=== PATIENT | male | born 1955 | race Caucasian/White ===

== ENCOUNTER 2021-02-18 10:26 | Emergency (ER) | payer MEDICARE, BC, SELFPAY ==
[2021-02-18] VITALS (7 sets, daily range): BP systolic 196–209; BP diastolic 99–105; PULSE 69–78; RESP 16; TEMP 36.9; O2SAT 97–98
--- NOTE | 2021-02-18 10:50 | ED_ITS ---
HPI - General Adult General Chief complaint: Abdominal Pain Stated complaint: VOMITTING/ NOT KEEPING FLUID DOWN Time Seen by Provider: 02/18/21 10:45 History of Present Illness HPI narrative: Patient is a 65-year-old male. Has a history of chronic constipation. No fevers. No headache. States that approximately 12 hours ago he woke up from sleep and has had multiple episodes of vomiting. No diarrhea. No urinary symptoms. No recent antibiotics. Has had some abdominal discomfort associated with the vomiting. Was seen at the walk-in clinic and was sent to the emergency department for evaluation. Related Data Previous Rx's Medication Instructions Recorded ondansetron HCl 4 mg tablet 4 mg PO Q6H PRN #10 tab 02/18/21 (Zofran) Review of Systems Constitutional Comments: No fevers Cardiovascular Comments: No chest pain Respiratory Comments: No shortness of breath Gastrointestinal Gastrointestinal: Reports as per HPI Genitourinary Genitourinary: Reports system reviewed and no additional complaints, except as documented Musculoskeletal Musculoskeletal: Reports system reviewed and no additional complaints, except as documented Integumentary/Breasts Skin/Breast: Reports system reviewed and no additional complaints, except as documented Neurologic Neurologic: Reports system reviewed and no additional complaints, except as documented Hematologic/Lymphatic On Anticoagulants: No Allergic/Immunologic Allergic/Immunologic: Reports system reviewed and no additional complaints, except as documented Patient History Medical History Chronic constipation Social History marital status: lives independently: Yes Exam Initial Vital Signs Initial Vital Signs: Vital Signs Pulse Oximetry 98 02/18/21 10:33 Const General: cooperative HENMT Head: normal to inspection and normocephalic Eyes General: appearance normal, both eyes and all related structures Resp Effort & Inspection: normal respiratory effort Auscultation: clear to auscultation bilaterally Cardio Rate: regular rate Rhythm: regular rhythm GI Inspection: normal to inspection Palpation: soft, No guarding and No tender Skin General: no rashes or lesions noted Neuro General: patient alert, patient awake and moves all extremities Extrem General: normal to inspection and capillary refill normal Psych Appearance: grossly normal and well kempt Course Orders Ordered: ED Orders 02/18/21 10:41 Complete Blood Count AUTO DIFF Stat Comprehensive Metabolic Panel Stat Lipase Stat Partial Thromboplastin Time Stat Prothrombin Time INR Stat 02/18/21 10:46 EKG-12 Lead Stat Discontinued Medications Sodium Chloride (Normal Saline 0.9%) 1,000 mls @ 1,000 mls/hr IV BOLUS ONE Stop: 02/18/21 11:50 Last Infusion: 02/18/21 12:17 Dose: 0 mls/hr Documented by: Admin: 02/18/21 11:07 Dose: 1,000 mls/hr Documented by: NAVYA Ondansetron HCl (Ondansetron 4 Mg/2 Ml Inj) 4 mg IV NOW ONE Stop: 02/18/21 10:47 Last Admin: 02/18/21 11:08 Dose: 4 mg Documented by: NAVYA Vital Signs Vital signs: Vital Signs - 8 hr 02/18/21 10:33 02/18/21 10:41 02/18/21 10:43 Temperature 98.5 F Pulse Rate 75 78 Respiratory Rate 16 Blood Pressure 196/99 H 209/105 H Pulse Oximetry 98 98 97 02/18/21 11:00 Temperature Pulse Rate 72 Respiratory Rate Blood Pressure Pulse Oximetry 98 Medical Decision Making Lab Data Lab results reviewed: Yes I reviewed the patient's lab results. Result diagrams: 02/18/21 10:41 02/18/21 10:41 Labs: Lab Results 02/18/21 02/18/21 02/18/21 Range/Units 10:41 10:41 10:41 WBC 7.2 (4.5-11.0) X10^3/uL RBC 3.81 L (4.5-5.9) X10^6/uL Hgb 13.7 (13.5-17.5) g/dL Hct 40.2 L (41-53) % MCV 105.5 H (80-100) fL MCH 36.0 H (26-34) PG MCHC 34.1 (30-36) % RDW 14.3 (11.6-14.8) % Plt Count 229 (150-400) X10^3/uL Neut % (Auto) 83.1 H (50-75) % Lymph % (Auto) 10.9 L (25-40) % [place] % (Auto) 5.4 (3-14) % Eos % (Auto) 0.1 L (2-4) % Baso % (Auto) 0.5 (0-2) % Neut # (Auto) 6000 (4987-2266) /uL Lymph # (Auto) 800 L (6449-8603) /uL [place] # (Auto) 400 (0-900) /uL Eos # (Auto) 0 (0-450) /uL Baso # (Auto) 0 (0-100) /uL PT 11.7 (10.1-12.7) SECONDS INR 1.1 (0.9-1.3) APTT 27 (26.4-36.2) SECONDS Sodium 138 (137-145) mmol/L Potassium 4.4 (3.4-5.1) mmol/L Chloride 102 (98-107) mmol/L Carbon Dioxide 25 (22-32) mmol/L BUN 13 (9-20) mg/dL Creatinine 0.87 (0.66-1.25) mg/dL Estimated GFR > 60.0 (>60) mL/min BUN/Creatinine Ratio 14.9 (6-22) Glucose 118 H (80-110) mg/dL Calcium 10.1 (8.4-10.2) mg/dL Total Bilirubin 1.5 H (0.2-1.3) mg/dL AST 163 H (17-59) IU/L ALT 117 H (<50) IU/L Alkaline Phosphatase 85 (38-126) U/L Total Protein 8.2 (6.3-8.2) g/dL Albumin 4.8 (3.5-5.0) g/dL Globulin 3.4 (1.7-4.1) g/dL Albumin/Globulin Ratio 1.4 (1.0-2.8) Lipase 94 (23-300) U/L ECG Data Attestation: I personally reviewed and interpreted this ECG as follows: Interpretation: Sinus rhythm Ventricular rate is 68 Normal axis Normal QRS Normal QTC No ST T wave changes MDM Narrative Medical decision making narrative: Patient is feeling much better. He was able to tolerate oral intake. Has not vomited since being here in the emergency department. Afebrile. Abdomen is soft. Low suspicion for bowel obstruction. Will send a prescription for nausea medicine to the pharmacy of his choice. He was given strict return precautions and follow-up instructions. He expressed understanding and agreement. Discharge Plan Departure Patient Disposition: Home Clinical Impression: Vomiting Instructions: DI for Vomiting -- Adult Activity Restrictions/Additional Instructions: A prescription for nausea medication was electronically transmitted to [facility] per your request. The start taking as directed. Increase your fluid intake but drinking small amounts over longer periods of time. You can contact 360 help you establish a primary doctor. Return to the emergency department for any new or worsening symptoms. Prescriptions: New ondansetron HCl [Zofran] 4 mg tablet 4 mg PO Q6H PRN (Reason: nausea and vomiting) Qty: 10 RF: 0
[2021-02-18 10:56] LABS: Add Manual Diff / Slide Review NO; Basophils Absolute Auto 0 /uL (0-100); Basophils Percent Auto 0.5 % (0-2); Eosinophils Absolute Auto 0 /uL (0-450); Eosinophils Percent Auto 0.1 % (2-4); Hematocrit 40.2 % (41-53); Hemoglobin 13.7 g/dL (13.5-17.5); Lymphocytes Absolute Auto 800 /uL (1100-4500); Lymphocytes Percent Auto 10.9 % (25-40); Mean Corpuscular HGB Conc 34.1 % (30-36); Mean Corpuscular Volume 105.5 fL (80-100); Monocytes Absolute Auto 400 /uL (0-900); Monocytes Percent Auto 5.4 % (3-14); Neutrophils Absolute Auto 6000 /uL (1500-7000); Neutrophils Percent Auto 83.1 % (50-75); Platelet Count 229 X10^3/uL (150-400); Red Blood Cell Count 3.81 X10^6/uL (4.5-5.9); Red Cell Distribution Width 14.3 % (11.6-14.8); White Blood Cell Count 7.2 X10^3/uL (4.5-11.0)
[2021-02-18 10:57] LABS: INR 1.1 (0.9-1.3); Prothrombin Time 11.7 SECONDS (10.1-12.7)
[2021-02-18 10:59] LABS: PTT Partial Thromboplastin Tim 27 SECONDS (26.4-36.2)
[2021-02-18 11:02] LABS: Alanine Aminotransferase 117 IU/L (<50); Albumin 4.8 g/dL (3.5-5.0); Albumin Globulin Ratio 1.4 (1.0-2.8); Alkaline Phosphatase 85 U/L (38-126); Aspartate Aminotransferase 163 IU/L (17-59); BUN Creatinine Ratio 14.9 (6-22); Bilirubin Total 1.5 mg/dL (0.2-1.3); Blood Urea Nitrogen 13 mg/dL (9-20); Calcium 10.1 mg/dL (8.4-10.2); Carbon Dioxide 25 mmol/L (22-32); Chloride 102 mmol/L (98-107); Estimated Glomerular Filt Rate > 60.0 mL/min (>60); Globulin 3.4 g/dL (1.7-4.1); Glucose 118 mg/dL (80-110); HEMOLYSIS < 15 (0-50); Lipase 94 U/L (23-300); Potassium 4.4 mmol/L (3.4-5.1); Sodium 138 mmol/L (137-145); Total Protein 8.2 g/dL (6.3-8.2)
[2021-02-18] MEDS: SODIUM CHLORIDE 0.9% 1,000 ML 1000 ML IV (11:07)
[2021-02-18] MEDS: ONDANSETRON 4 MG/2 ML INJ IV (11:08)
== END 2021-02-18 12:45 | disposition home or self-care (01) ==
PROVIDERS: Emergency Provider Emergency Medicine
DX: R11.10 Vomiting, unspecified (principal); R10.9 Unspecified abdominal pain
CPT/HCPCS: 36415; 80053; 83690; 85025; 85610; 85730; 93005; 96361; 96374; 99284; J2405

== ENCOUNTER 2021-04-19 13:19 | Emergency (ER) | payer MEDICARE, BC, SELFPAY ==
[2021-04-19 13:29] VITALS: BP 219/103; PULSE 72; RESP 18; TEMP 36.7; O2SAT 99; BMI 24.3
[2021-04-19] MEDS: ONDANSETRON 4 MG/2 ML INJ IV (13:47)
[2021-04-19 13:58] LABS: Add Manual Diff / Slide Review NO; Basophils Absolute Auto 0 /uL (0-100); Basophils Percent Auto 0.8 % (0-2); Eosinophils Absolute Auto 0 /uL (0-450); Eosinophils Percent Auto 0.7 % (2-4); Hematocrit 40.7 % (41-53); Hemoglobin 13.9 g/dL (13.5-17.5); Lymphocytes Absolute Auto 1300 /uL (1100-4500); Lymphocytes Percent Auto 22.4 % (25-40); Mean Corpuscular HGB Conc 34.2 % (30-36); Mean Corpuscular Hemoglobin 36.6 PG (26-34); Mean Corpuscular Volume 107.2 fL (80-100); Monocytes Absolute Auto 300 /uL (0-900); Neutrophils Absolute Auto 4000 /uL (1500-7000); Neutrophils Percent Auto 70.1 % (50-75); Platelet Count 224 X10^3/uL (150-400); Red Cell Distribution Width 14.3 % (11.6-14.8); White Blood Cell Count 5.7 X10^3/uL (4.5-11.0)
[2021-04-19 14:04] LABS: Prothrombin Time 11.6 SECONDS (10.1-12.7)
[2021-04-19 14:06] LABS: PTT Partial Thromboplastin Tim 29 SECONDS (26.4-36.2)
[2021-04-19 14:12] LABS: Alanine Aminotransferase 83 IU/L (<50); Albumin 4.9 g/dL (3.5-5.0); Albumin Globulin Ratio 1.6 (1.0-2.8); Alkaline Phosphatase 75 U/L (38-126); Aspartate Aminotransferase 127 IU/L (17-59); BUN Creatinine Ratio 15.3 (6-22); Blood Urea Nitrogen 11 mg/dL (9-20); Calcium 9.3 mg/dL (8.4-10.2); Carbon Dioxide 26 mmol/L (22-32); Chloride 102 mmol/L (98-107); Creatine Kinase 298 U/L (55-170); Estimated Glomerular Filt Rate > 60.0 mL/min (>60); Glucose 105 mg/dL (80-110); HEMOLYSIS 32 (0-50); Lipase 83 U/L (23-300); Potassium 3.8 mmol/L (3.4-5.1); Sodium 137 mmol/L (137-145); Total Protein 7.9 g/dL (6.3-8.2)
[2021-04-19 14:21] LABS: COVID19 -Nasal RAPID Negative (Negative)
[2021-04-19 14:23] LABS: Troponin I < 0.012 ng/mL (0.01-0.034)
[2021-04-19 14:27] LABS: CKMB % Relative Index 0.8 % (1.5-5.0); Creatine Kinase MB 2.28 ng/mL (<2.37)
--- NOTE | 2021-04-19 14:54 | DI.CT.S_ITS ---
PROCEDURE: CT ABDOMEN PELVIS W CON INDICATIONS: ?SBO TECHNIQUE: After the administration of oral and IV contrast, axial sections were acquired from the lung bases to the pubic symphysis. Coronal and sagittal reformats were performed. For radiation dose reduction, the following was used: automated exposure control, adjustment of mA and/or kV according to patient size. COMPARISON: None. FINDINGS: Image quality: There is streak artifact from patient's left hip prosthesis. Lung bases: There is minimal dependent atelectasis. Heart: Mildly enlarged. ABDOMEN: Liver: There is diffuse hypoattenuation of the liver consistent with fatty infiltration. Gallbladder: Unremarkable. Biliary ducts: Unremarkable. Pancreas: Unremarkable. Spleen: Unremarkable. Adrenal Glands: Unremarkable. Kidneys and Ureters: No hydronephrosis. Stomach and Bowel: Stomach and small bowel are normal in caliber and wall thickness. The appendix is normal in appearance. There is segmental bowel wall thickening involving the distal ascending and proximal transverse colon centered at the hepatic flexure. Evaluation is limited by nondistention. A few colonic diverticular present without acute diverticulitis. Peritoneum: No abnormal intraperitoneal fluid. No free air. Ventral Wall: No hernia. Abdominal Nodes: No retroperitoneal or mesenteric adenopathy by size criteria. Vessels: Aorta and inferior vena cava are normal in size. PELVIS: Pelvic Organs: Unremarkable. Bladder: Unremarkable. Pelvic Nodes: No enlarged lymph nodes. Miscellaneous: No inguinal hernias are seen. Bones: There is a left total hip prosthesis demonstrated. No associated periprosthetic fractures identified. IMPRESSION: 1. No evidence of small-bowel obstruction as clinically queried. 2. No evidence of appendicitis. 3. Mild segmental wall thickening of the colon centered at the hepatic flexure suggestive of a mild colitis. However, this may be artifactual due to nondistention. Recommend correlation clinically. 4. Hepatic steatosis. Dictated by: Oli Hester M.D. on 04/19/2021 at 16:39 Approved by: Oli Hester M.D. on 04/19/2021 at 16:43
[2021-04-19] MEDS: SODIUM CHLORIDE 0.9% 1,000 ML 1000 ML IV (15:18)
--- NOTE | 2021-04-19 16:07 | ED.NAVMDI ---
HPI - Nausea/Vomiting/Diarrhea <Ashlyn Simpson PA-C - Last Filed: 04/19/21 17:24> General Chief complaint: Nausea/Vomiting/Diarrhea Stated complaint: nausea/vomitting Time Seen by Provider: 04/19/21 14:02 Source: patient Mode of arrival: Ambulatory Limitations: no limitations History of Present Illness HPI Narrative: 65-year-old male with past medical history hypertension, hyperlipidemia, CAD, GERD, constipation presents to the ED with 1 day of nausea and vomiting. Patient states that he has not had a good bowel movement for the last 3 days, started feeling nauseous earlier today and had 2 episodes of vomiting. Denies hematochezia, melena, coffee-ground emesis. Denies fever, chills, chest pain, shortness of breath, cough, abdominal pain, diarrhea, dysuria, lightheadedness, dizziness, syncope. Takes omeprazole for GERD, MiraLax and Dulcolax for constipation. Is on clopidogrel, aspirin, amlodipine. Endorses consuming 2 alcoholic drinks daily. Denies smoking, drug use. Related Data Previous Rx's Medication Instructions Recorded ondansetron HCl 4 mg tablet 4 mg PO Q6H PRN #10 tab 02/18/21 (Zofran) Allergies Allergy/AdvReac Type Severity Reaction Status Date / Time No Known Drug Allergies Allergy Verified 04/19/21 13:29 Review of Systems <Ashlyn Simpson PA-C - Last Filed: 04/19/21 17:24> Constitutional Constitutional: Denies chills, Denies fatigue, Denies fever(s), Denies frequent falls, Denies lethargy and Denies weakness Eyes Eyes: Denies change in vision, Denies eye discharge, Denies irritation and Denies loss of vision ENT Ears, Nose, Mouth, and Throat: Denies change in voice, Denies dizziness, Denies neck pain, Denies sore throat and Denies throat swelling Cardiovascular Cardiovascular: Denies chest pain, Denies irregular heart rhythm, Denies lightheadedness, Denies palpitations, Denies dyspnea, Denies dyspnea on exertion and Denies orthopnea Respiratory Respiratory: Denies cough, Denies dyspnea, Denies dyspnea on exertion and Denies wheezing Gastrointestinal Gastrointestinal: Denies abdominal pain, Denies change in bowel habits, Reports constipation, Denies diarrhea, Reports nausea and Reports vomiting Musculoskeletal Musculoskeletal: Denies neck pain and Denies numbness Integumentary/Breasts Skin/Breast: Denies pruritus, Denies erythema, Denies rash and Denies wounds Neurologic Neurologic: Denies behavioral changes, Denies confusion, Denies dizziness, Denies frequent falls, Denies loss of vision, Denies numbness and Denies weakness Psychiatric Psychiatric: Denies anxiety, Denies behavioral changes, Denies confusion, Denies depression, Denies homicidal ideation and Denies suicidal ideation Endocrine Endocrine: Denies fatigue, Denies flushing and Denies palpitations Hematologic/Lymphatic Hematologic/Lymphatic: Denies easy bruising Allergic/Immunologic Allergic/Immunologic: Denies urticaria, Denies throat swelling and Denies wheezing Patient History <Ashlyn Simpson PA-C - Last Filed: 04/19/21 17:24> Medical History Chronic constipation Social History marital status: lives independently: Yes Smoking Status: Never smoker Smoking Status: Never smoker alcohol intake frequency: 0-2 drinks per day Substance Use Type: does not use Exam <Ashlyn Simpson PA-C - Last Filed: 04/19/21 17:24> Initial Vital Signs Initial Vital Signs: Vital Signs Temperature 98.0 F 04/19/21 13:29 Pulse Rate 72 04/19/21 13:29 Respiratory Rate 18 04/19/21 13:29 Blood Pressure 219/103 H 04/19/21 13:29 Pulse Oximetry 99 04/19/21 13:29 Const General: cooperative HENMT Head: normocephalic and atraumatic Ears: external ears normal and TM's normal bilaterally Nose: external nose normal and No nasal discharge Face and sinus: sinuses nontender, face symmetric, no sinus tenderness and No dry mucous membranes Mouth: oral mucosae normal and moist mucous membranes Teeth and gingiva: dentition normal Throat: tonsils normal and uvula midline Eyes General: appearance normal, both eyes and all related structures Eyelids: eyelids normal Conjunctivae: conjunctivae normal Sclera: sclerae normal Pupils: PERRL EOM: EOM intact bilaterally Neck Neck: normal visual inspection, trachea midline, No lymphadenopathy, No midline deformity and No JVD Lymphatic: No lymphedema Chest Chest: normal inspection of the chest Resp Effort & Inspection: normal respiratory effort, able to speak in complete sentences, no respiratory distress and no use of accessory muscles Auscultation: clear to auscultation bilaterally, no rales, no rhonchi and no wheezes Cardio Rate: regular rate Rhythm: regular rhythm Heart Sounds: no click, no gallops, no murmurs and no rubs Pulses: normal peripheral pulses GI Inspection: non-distended Palpation: soft, no hepatosplenomegaly, No guarding, No pulsatile mass and No tender Auscultation: normal bowel sounds Other: Abdomen is soft, nondistended, nontender to palpation. No CVA tenderness. Back/Spine/Pelvis Back: No CVA tenderness Cervical Spine: cervical ROM normal and No pain with cervical ROM Thoracic/Lumbar Spine: thoracic and lumbar spine normal to inspection Skin General: no rashes or lesions noted, No jaundice and No petechiae Neuro General: patient alert, patient oriented x3, gait normal and no focal motor deficits Speech: speech normal Extrem General: full ROM, no clubbing, cyanosis or edema, no pedal edema and no calf tenderness Psych Appearance: well kempt Mental Status: mental status grossly normal Attitude: cooperative Thought Content: normal and suicidality Judgment: judgment good <Alec Alicea DO - Last Filed: 04/19/21 17:31> Initial Vital Signs Initial Vital Signs: Vital Signs Temperature 98.0 F 04/19/21 13:29 Pulse Rate 72 04/19/21 13:29 Respiratory Rate 18 04/19/21 13:29 Blood Pressure 219/103 H 04/19/21 13:29 Pulse Oximetry 99 04/19/21 13:29 Course <Ashlyn Simpson PA-C - Last Filed: 04/19/21 17:24> Course Course Narrative: Labs within normal limits. CT abdomen pelvis negative for acute findings. Will discharge home with ED return precautions, PCP follow-up. Orders Ordered: ED Orders 04/19/21 13:40 Complete Blood Count AUTO DIFF Stat Comprehensive Metabolic Panel Stat Lipase Stat Partial Thromboplastin Time Stat Prothrombin Time INR Stat Troponin & CK Cardiac Panel Stat 04/19/21 13:56 COVID19 -Nasal swab/Pre-Proc Stat 04/19/21 13:59 EKG-12 Lead Stat 04/19/21 14:54 CT abdomen pelvis w con Stat 04/19/21 16:25 Urine Microscopic Stat Discontinued Medications Sodium Chloride (Normal Saline 0.9%) 1,000 mls @ 1,000 mls/hr IV BOLUS ONE Stop: 04/19/21 15:56 Last Infusion: 04/19/21 17:12 Dose: 0 mls/hr Documented by: Admin: 04/19/21 15:18 Dose: 1,000 mls/hr Documented by: NAVYA Ondansetron HCl (Ondansetron 4 Mg/2 Ml Inj) 4 mg IV NOW ONE Stop: 04/19/21 13:37 Last Admin: 04/19/21 13:47 Dose: 4 mg Documented by: CHAVA Vital Signs Vital signs: Vital Signs - 8 hr 04/19/21 13:29 04/19/21 16:16 Temperature 98.0 F Pulse Rate 72 74 Respiratory Rate 18 Blood Pressure 219/103 H 192/97 H Pulse Oximetry 99 99 <Alec Alicea, DO - Last Filed: 04/19/21 17:31> Orders Ordered: ED Orders 04/19/21 13:40 Complete Blood Count AUTO DIFF Stat Comprehensive Metabolic Panel Stat Lipase Stat Partial Thromboplastin Time Stat Prothrombin Time INR Stat Troponin & CK Cardiac Panel Stat 04/19/21 13:56 COVID19 -Nasal swab/Pre-Proc Stat 04/19/21 13:59 EKG-12 Lead Stat 04/19/21 14:54 CT abdomen pelvis w con Stat 04/19/21 16:25 Urine Microscopic Stat Discontinued Medications Sodium Chloride (Normal Saline 0.9%) 1,000 mls @ 1,000 mls/hr IV BOLUS ONE Stop: 04/19/21 15:56 Last Infusion: 04/19/21 17:12 Dose: 0 mls/hr Documented by: Admin: 04/19/21 15:18 Dose: 1,000 mls/hr Documented by: NAVYA Ondansetron HCl (Ondansetron 4 Mg/2 Ml Inj) 4 mg IV NOW ONE Stop: 04/19/21 13:37 Last Admin: 04/19/21 13:47 Dose: 4 mg Documented by: CHAVA Vital Signs Vital signs: Vital Signs - 8 hr 04/19/21 13:29 04/19/21 16:16 Temperature 98.0 F Pulse Rate 72 74 Respiratory Rate 18 Blood Pressure 219/103 H 192/97 H Pulse Oximetry 99 99 MDM - Nausea/Vomiting/Diarrhea <Ashlyn Simpson PA-C - Last Filed: 04/19/21 17:24> Medical Records Attestation: I reviewed the patient's medical records. Lab Data Attestation: I reviewed the patient's lab results. Lab results narrative: Labs within normal Result diagrams: 04/19/21 13:40 04/19/21 13:40 Labs: Lab Results 04/19/21 04/19/21 04/19/21 Range/Units 13:40 13:40 13:40 WBC 5.7 (4.5-11.0) X10^3/uL RBC 3.80 L (4.5-5.9) X10^6/uL Hgb 13.9 (13.5-17.5) g/dL Hct 40.7 L (41-53) % MCV 107.2 H (80-100) fL MCH 36.6 H (26-34) PG MCHC 34.2 (30-36) % RDW 14.3 (11.6-14.8) % Plt Count 224 (150-400) X10^3/uL Neut % (Auto) 70.1 (50-75) % Lymph % (Auto) 22.4 L (25-40) % Dickenson % (Auto) 6.0 (3-14) % Eos % (Auto) 0.7 L (2-4) % Baso % (Auto) 0.8 (0-2) % Neut # (Auto) 4000 (8147-0330) /uL Lymph # (Auto) 1300 (1073-6558) /uL Dickenson # (Auto) 300 (0-900) /uL Eos # (Auto) 0 (0-450) /uL Baso # (Auto) 0 (0-100) /uL PT 11.6 (10.1-12.7) SECONDS INR 1.0 (0.9-1.3) APTT 29 (26.4-36.2) SECONDS Sodium 137 (137-145) mmol/L Potassium 3.8 (3.4-5.1) mmol/L Chloride 102 (98-107) mmol/L Carbon Dioxide 26 (22-32) mmol/L BUN 11 (9-20) mg/dL Creatinine 0.72 (0.66-1.25) mg/dL Estimated GFR > 60.0 (>60) mL/min BUN/Creatinine Ratio 15.3 (6-22) Glucose 105 (80-110) mg/dL Calcium 9.3 (8.4-10.2) mg/dL Total Bilirubin 1.0 (0.2-1.3) mg/dL AST 127 H (17-59) IU/L ALT 83 H (<50) IU/L Alkaline Phosphatase 75 (38-126) U/L Total Creatine Kinase (55-170) U/L CK-MB (CK-2) (<2.37) ng/mL CK-MB (CK-2) Rel Index (1.5-5.0) % Troponin I (0.01-0.034) ng/mL Total Protein 7.9 (6.3-8.2) g/dL Albumin 4.9 (3.5-5.0) g/dL Globulin 3.0 (1.7-4.1) g/dL Albumin/Globulin Ratio 1.6 (1.0-2.8) Lipase 83 (23-300) U/L Urine RBC (0-5/HPF) Urine WBC (0-5/HPF) Urine Bacteria (None) Ur Culture Indicated? SARS-CoV-2 (PCR) (Negative) 04/19/21 04/19/21 04/19/21 Range/Units 13:40 13:56 16:25 WBC (4.5-11.0) X10^3/uL RBC (4.5-5.9) X10^6/uL Hgb (13.5-17.5) g/dL Hct (41-53) % MCV (80-100) fL MCH (26-34) PG MCHC (30-36) % RDW (11.6-14.8) % Plt Count (150-400) X10^3/uL Neut % (Auto) (50-75) % Lymph % (Auto) (25-40) % Dickenson % (Auto) (3-14) % Eos % (Auto) (2-4) % Baso % (Auto) (0-2) % Neut # (Auto) (6182-7540) /uL Lymph # (Auto) (0175-1263) /uL Dickenson # (Auto) (0-900) /uL Eos # (Auto) (0-450) /uL Baso # (Auto) (0-100) /uL PT (10.1-12.7) SECONDS INR (0.9-1.3) APTT (26.4-36.2) SECONDS Sodium (137-145) mmol/L Potassium (3.4-5.1) mmol/L Chloride (98-107) mmol/L Carbon Dioxide (22-32) mmol/L BUN (9-20) mg/dL Creatinine (0.66-1.25) mg/dL Estimated GFR (>60) mL/min BUN/Creatinine Ratio (6-22) Glucose (80-110) mg/dL Calcium (8.4-10.2) mg/dL Total Bilirubin (0.2-1.3) mg/dL AST (17-59) IU/L ALT (<50) IU/L Alkaline Phosphatase (38-126) U/L Total Creatine Kinase 298 H (55-170) U/L CK-MB (CK-2) 2.28 (<2.37) ng/mL CK-MB (CK-2) Rel Index 0.8 L (1.5-5.0) % Troponin I < 0.012 (0.01-0.034) ng/mL Total Protein (6.3-8.2) g/dL Albumin (3.5-5.0) g/dL Globulin (1.7-4.1) g/dL Albumin/Globulin Ratio (1.0-2.8) Lipase (23-300) U/L Urine RBC None seen (0-5/HPF) Urine WBC None seen (0-5/HPF) Urine Bacteria None seen (None) Ur Culture Indicated? Cult not indicated SARS-CoV-2 (PCR) Negative (Negative) Urine Dip Bedside Urine Glucose Negative Bedside Urine Bilirubin - Negative Bedside Urine Ketone - Negative Urine Specific [place] 1.010 Bedside Urine Occult Blood - Negative Bedside Urine pH 7.0 Bedside Urine Protein +/- 15 Bedside Urine Urobilinogen - Negative Bedside Urine Nitrite - Negative Bedside Urine Leukocytes - Negative Esterase Imaging Data CT scan - abdomen/pelvis: Radiologist's Impression: PROCEDURE:? CT ANGIO CHEST ABDOMEN PELVIS ? INDICATIONS:? L upper back pain, chest pain ? TECHNIQUE:? Precontrast 5 mm thick sections acquired from the lung apices to the iliac crests.? After the administration of intravenous contrast, 2.5 mm thick sections again acquired from the lung apices to the iliac crests.? Maximum intensity projection (MIP) oblique sagittal and coronal reformats were then acquired.? For radiation dose reduction, the following was used:? automated exposure control.? ? COMPARISON:? [facility], CR, XR CHEST 2V, 04/19/2021, 11:55. ? FINDINGS:? Image quality:? There is metallic streak artifact from patient's left hip prosthesis and left gluteal implanted neurostimulator device. ? AORTA:? Noncontrast images demonstrate no evidence of and intramural hematoma.? Postcontrast images demonstrate no intimal flaps to suggest aortic dissection.? The aorta is normal in caliber and contour.? There is conventional branching of the aortic arch.? The visualized great vessels are normal in caliber and appear widely patent.? There is mild scattered atherosclerotic plaque along the aorta. ? CHEST:? Lungs and pleura:? There is mild dependent atelectasis bilaterally.? No acute consolidation.? No pleural effusions or pneumothorax.? Central and peripheral airways are patent and normal in caliber.? ? Mediastinum:? Heart size is normal.? No pericardial effusion.? No mediastinal or hilar adenopathy by size criteria.? Central pulmonary arteries are mildly enlarged, with the main pulmonary artery measuring up to 3.1 cm suggestive of pulmonary arterial hypertension.? No filling defects are identified to suggest central pulmonary embolism to the level of the segmental pulmonary arteries.? Esophagus is normal in caliber.? There is a small to moderate-sized hiatal hernia.? ? Bones and chest wall:? No axillary adenopathy by size criteria.? No suspicious bony lesions.? No vertebral body compression fractures.? ? ? ABDOMEN:? Vasculature:? The celiac, superior mesenteric, and inferior mesenteric arteries appear patent.? There is a small accessory right renal artery supplying the inferior pole of the right kidney.? There is a single left renal artery.? Prominent calcified plaque is demonstrated in the proximal left renal artery at its origin with associated moderate focal narrowing.? The common, external, and internal iliac arteries appear widely patent bilaterally.? The common femoral and visualized superficial femoral arteries also appear patent bilaterally. ? Solid organs:? There is hypoattenuation of the liver suggestive of fatty infiltration.? The gallbladder is surgically absent.? Biliary system is non-dilated.? Pancreas enhances normally.? No peripancreatic fat stranding or fluid collections.? No pancreatic duct dilatation.? The spleen is normal in size.? No adrenal nodules.? Kidneys demonstrate no hydronephrosis. ? Peritoneum and bowel:? No free fluid or air.? There are postsurgical changes consistent with prior gastric bypass.? Bowel loops are normal in caliber and wall thickness.? Surgical clips are demonstrated adjacent to the cecum compatible with prior appendectomy. ?There are few colonic diverticula without acute diverticulitis.? ? Nodes and vessels:? No retroperitoneal or mesenteric adenopathy by size criteria.? Inferior vena cava is normal in morphology.? ? Miscellaneous:? No ventral hernias.? ? ? PELVIS:? Genitourinary:? Bladder wall thickness is normal.? ? Miscellaneous:? There is a left gluteal implanted neurostimulator device with in the epidural lead extending superiorly in the lumbar spinal canal up to the level of T11.? No inguinal hernias or adenopathy.? No ventral hernias.? ? Bones:? No suspicious bony lesions.? No vertebral body compression fractures.? ? ? IMPRESSION:? ? 1. No evidence of aortic dissection. ? 2. No central pulmonary embolism to the level of the segmental pulmonary arteries. ? 3. No acute consolidation in the lungs. ? 4. Moderate narrowing at the origin of the left renal artery.? ? ? Dictated by: Oli Hester M.D. on 04/19/2021 at 15:48 ? ? Approved by: Oli Hester M.D. on 04/19/2021 at 16:10 ? ECG Data Interpretation: Normal sinus rhythm, no ST-T changes, no axis deviation. MDM Narrative Medical decision making narrative: 65-year-old male with past medical history hypertension, hyperlipidemia, CAD, GERD, constipation presents to the ED with 1 day of nausea and vomiting. Concern for SBO versus GERD versus gastritis. Patient is not tender to palpation in the abdomen, unlikely biliary etiology, diverticulitis, appendicitis. Will order labs, lipase, CT abdomen pelvis, EKG. Will give IV fluids and Zofran for symptoms. Will reassess. <Alec Alicea DO - Last Filed: 04/19/21 17:31> Lab Data Labs: Lab Results 04/19/21 04/19/21 04/19/21 Range/Units 13:40 13:40 13:40 WBC 5.7 (4.5-11.0) X10^3/uL RBC 3.80 L (4.5-5.9) X10^6/uL Hgb 13.9 (13.5-17.5) g/dL Hct 40.7 L (41-53) % MCV 107.2 H (80-100) fL MCH 36.6 H (26-34) PG MCHC 34.2 (30-36) % RDW 14.3 (11.6-14.8) % Plt Count 224 (150-400) X10^3/uL Neut % (Auto) 70.1 (50-75) % Lymph % (Auto) 22.4 L (25-40) % Dickenson % (Auto) 6.0 (3-14) % Eos % (Auto) 0.7 L (2-4) % Baso % (Auto) 0.8 (0-2) % Neut # (Auto) 4000 (0149-9458) /uL Lymph # (Auto) 1300 (6704-4717) /uL Dickenson # (Auto) 300 (0-900) /uL Eos # (Auto) 0 (0-450) /uL Baso # (Auto) 0 (0-100) /uL PT 11.6 (10.1-12.7) SECONDS INR 1.0 (0.9-1.3) APTT 29 (26.4-36.2) SECONDS Sodium 137 (137-145) mmol/L Potassium 3.8 (3.4-5.1) mmol/L Chloride 102 (98-107) mmol/L Carbon Dioxide 26 (22-32) mmol/L BUN 11 (9-20) mg/dL Creatinine 0.72 (0.66-1.25) mg/dL Estimated GFR > 60.0 (>60) mL/min BUN/Creatinine Ratio 15.3 (6-22) Glucose 105 (80-110) mg/dL Calcium 9.3 (8.4-10.2) mg/dL Total Bilirubin 1.0 (0.2-1.3) mg/dL AST 127 H (17-59) IU/L ALT 83 H (<50) IU/L Alkaline Phosphatase 75 (38-126) U/L Total Creatine Kinase (55-170) U/L CK-MB (CK-2) (<2.37) ng/mL CK-MB (CK-2) Rel Index (1.5-5.0) % Troponin I (0.01-0.034) ng/mL Total Protein 7.9 (6.3-8.2) g/dL Albumin 4.9 (3.5-5.0) g/dL Globulin 3.0 (1.7-4.1) g/dL Albumin/Globulin Ratio 1.6 (1.0-2.8) Lipase 83 (23-300) U/L Urine RBC (0-5/HPF) Urine WBC (0-5/HPF) Urine Bacteria (None) Ur Culture Indicated? SARS-CoV-2 (PCR) (Negative) 04/19/21 04/19/21 04/19/21 Range/Units 13:40 13:56 16:25 WBC (4.5-11.0) X10^3/uL RBC (4.5-5.9) X10^6/uL Hgb (13.5-17.5) g/dL Hct (41-53) % MCV (80-100) fL MCH (26-34) PG MCHC (30-36) % RDW (11.6-14.8) % Plt Count (150-400) X10^3/uL Neut % (Auto) (50-75) % Lymph % (Auto) (25-40) % Dickenson % (Auto) (3-14) % Eos % (Auto) (2-4) % Baso % (Auto) (0-2) % Neut # (Auto) (3132-0715) /uL Lymph # (Auto) (6336-6997) /uL Dickenson # (Auto) (0-900) /uL Eos # (Auto) (0-450) /uL Baso # (Auto) (0-100) /uL PT (10.1-12.7) SECONDS INR (0.9-1.3) APTT (26.4-36.2) SECONDS Sodium (137-145) mmol/L Potassium (3.4-5.1) mmol/L Chloride (98-107) mmol/L Carbon Dioxide (22-32) mmol/L BUN (9-20) mg/dL Creatinine (0.66-1.25) mg/dL Estimated GFR (>60) mL/min BUN/Creatinine Ratio (6-22) Glucose (80-110) mg/dL Calcium (8.4-10.2) mg/dL Total Bilirubin (0.2-1.3) mg/dL AST (17-59) IU/L ALT (<50) IU/L Alkaline Phosphatase (38-126) U/L Total Creatine Kinase 298 H (55-170) U/L CK-MB (CK-2) 2.28 (<2.37) ng/mL CK-MB (CK-2) Rel Index 0.8 L (1.5-5.0) % Troponin I < 0.012 (0.01-0.034) ng/mL Total Protein (6.3-8.2) g/dL Albumin (3.5-5.0) g/dL Globulin (1.7-4.1) g/dL Albumin/Globulin Ratio (1.0-2.8) Lipase (23-300) U/L Urine RBC None seen (0-5/HPF) Urine WBC None seen (0-5/HPF) Urine Bacteria None seen (None) Ur Culture Indicated? Cult not indicated SARS-CoV-2 (PCR) Negative (Negative) Urine Dip Bedside Urine Glucose Negative Bedside Urine Bilirubin - Negative Bedside Urine Ketone - Negative Urine Specific [place] 1.010 Bedside Urine Occult Blood - Negative Bedside Urine pH 7.0 Bedside Urine Protein +/- 15 Bedside Urine Urobilinogen - Negative Bedside Urine Nitrite - Negative Bedside Urine Leukocytes - Negative Esterase Discharge Plan Departure Patient Disposition: Home Clinical Impression: Nausea & vomiting Qualifiers: Vomiting type: unspecified Vomiting Intractability: non-intractable Qualified Code(s): R11.2 - Nausea with vomiting, unspecified Instructions: Nausea and Vomiting-Adult Activity Restrictions/Additional Instructions: You are evaluated for nausea and vomiting in the ED today. Your labs, CT abdomen and pelvis were normal. You were treated with Zofran and IV fluids for your symptoms. Continue to take the MiraLax, Dulcolax, omeprazole. Follow-up with your PCP. Return to the ED if your symptoms worsen, you are intractably vomiting, you are unable to keep down fluids or solids. Prescriptions: No Action ondansetron HCl [Zofran] 4 mg tablet 4 mg PO Q6H PRN (Reason: nausea and vomiting) Qty: 10 RF: 0 <Alec Alicea, DO - Last Filed: 04/19/21 17:31> Cosign ED Attending Cosignature Attestation: Dr Alicea Co-Sign Statement: I was available for consultation during this patient's emergency department visit. This chart is signed by myself for administrative purposes only. I did not have direct contact with this patient during this visit. They were seen independently by the APC.
[2021-04-19 16:16] VITALS: BP 192/97; PULSE 74; O2SAT 99
[2021-04-19 17:02] LABS: Bacteria Urine None Seen; Culture Indicated Urine Cult Not Indicated; RBC Urine None Seen (0-5/HPF); WBC Urine None Seen (0-5/HPF)
== END 2021-04-19 17:29 | disposition home or self-care (01) ==
PROVIDERS: Emergency Medicine; Emergency Provider Student in an Organized Health Care Education/Training Program
DX: R11.2 Nausea with vomiting, unspecified (principal); M54.6 Pain in thoracic spine; R07.9 Chest pain, unspecified; Z20.822 Contact with and (suspected) exposure to COVID-19
CPT/HCPCS: 74177; 80053; 81003; 81015; 82550; 82553; 83690; 84484; 85025; 85610; 85730; 87635; 93005; 93010; 96361; 96374; 99284; C9803; J2405; Q9967

== ENCOUNTER → 2022-07-01 12:16 | Outpatient (CLI) | payer MEDICARE, BC, SELFPAY ==
[2022-07-01 14:14] LABS: Influenza A - CEPHEID Flu A POSITIVE (NEGATIVE); Influenza B - CEPHEID Flu B NEGATIVE (NEGATIVE); Respiratory Syncytial Virus Negative (Negative)
[2022-07-01 14:15] LABS: COVID-19 CEPHEID 4-PLEX PCR Negative (Negative)
== END ==
PROVIDERS: Visit Provider Nurse Practitioner Family
DX: R09.81 Nasal congestion (principal); R05.1 Acute cough
CPT/HCPCS: 0241U

== ENCOUNTER 2022-08-06 07:51 | Emergency (ER) | payer MEDICARE, BC, SELFPAY ==
[2022-08-06] VITALS (15 sets, daily range): BP systolic 151–200; BP diastolic 86–107; PULSE 66–80; RESP 16–31; TEMP 36.5; O2SAT 96–100; BMI 25.8
--- NOTE | 2022-08-06 08:08 | DI.RAD.S_ITS ---
PROCEDURE: XR CHEST 1V INDICATIONS: chest pain TECHNIQUE: One view of the chest was acquired. COMPARISON: None. FINDINGS: Surgical changes and devices: None. Lungs and pleura: Lungs are clear. No pleural effusions or pneumothorax. Mediastinum: Mediastinal contours appear normal. Heart size is normal. Bones and chest wall: No suspicious bony lesions. Overlying soft tissues appear unremarkable. IMPRESSION: No acute cardiopulmonary abnormalities or focal airspace disease. Dictated by: Shoaib Natarajan M.D. on 08/06/2022 at 8:21 Approved by: Shoaib Natarajan M.D. on 08/06/2022 at 8:21
[2022-08-06 08:14] LABS: Add Manual Diff / Slide Review NO; Basophils Absolute Auto 100 /uL (0-100); Basophils Percent Auto 0.9 % (0-2); Eosinophils Absolute Auto 100 /uL (0-450); Eosinophils Percent Auto 0.8 % (2-4); Hemoglobin 14.4 g/dL (13.5-17.5); Lymphocytes Absolute Auto 1600 /uL (1100-4500); Lymphocytes Percent Auto 22.7 % (25-40); Mean Corpuscular HGB Conc 34.3 % (30-36); Mean Corpuscular Hemoglobin 37.7 PG (26-34); Mean Corpuscular Volume 109.7 fL (80-100); Monocytes Absolute Auto 500 /uL (0-900); Monocytes Percent Auto 7.4 % (3-14); Neutrophils Absolute Auto 4700 /uL (1500-7000); Neutrophils Percent Auto 68.2 % (50-75); Platelet Count 191 X10^3/uL (150-400); Red Blood Cell Count 3.83 X10^6/uL (4.5-5.9); Red Cell Distribution Width 15.1 % (11.6-14.8); White Blood Cell Count 6.9 X10^3/uL (4.5-11.0)
--- NOTE | 2022-08-06 08:14 | ED_ITS ---
HPI - Chest Pain General Chief Complaint: Chest Pain Stated Complaint: GERD/sent by [facility] Time Seen by Provider: 08/06/22 08:10 Source: patient Mode of arrival: Ambulatory Limitations: no limitations History of Present Illness HPI narrative: Patient is a 66-year-old male history of coronary artery disease multiple stents acid reflux hiatal hernia hypertension presents today with epigastric pain and burning. He states he woke up around 4:00 a.m. and felt some epigastric pain. He is scheduled for a hiatal hernia surgery in a couple of months. He denies any chest pain or shortness of breath. He has no arm pain. He feels nauseous. He did not yet take his morning blood pressure medications. This does not feel like his previous heart attack. He says he is only had 1 heart attack and [place] where it was the worst thing he is ever experienced. He has since had stress test which then showed further disease. 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 He denies any vomiting fever chills or cough. He reports that he exercises daily he is in pretty good shape. Related Data Previous Rx's Medication Instructions Recorded ondansetron HCl 4 mg tablet 4 mg PO Q6H PRN nausea and 02/18/21 (Zofran) vomiting #10 tabs hydrocodone 5 mg-acetaminophen 325 1 tab PO Q6H PRN pain #10 tabs 08/06/22 mg tablet ondansetron 4 mg disintegrating 4 mg PO Q8H PRN nausea and 08/06/22 tablet vomiting #10 tabs Allergies Allergy/AdvReac Type Severity Reaction Status Date / Time No Known Drug Allergies Allergy Verified 08/06/22 08:05 Review of Systems Review of Systems ROS Unobtainable: All systems reviewed & are unremarkable except as noted in HPI and below Patient History Medical History Chronic constipation Social History marital status: lives independently: Yes Smoking Status: Never smoker Smoking Status: Never smoker alcohol intake frequency: 0-2 drinks per day Substance Use Type: does not use Exam Initial Vital Signs Initial Vital Signs: Vital Signs Pulse Rate 76 08/06/22 07:57 Pulse Oximetry 98 08/06/22 07:57 GENERAL: Alert well-appearing 66-year-old male and in [no acute] distress. HEENT: Head atraumatic,EOMI, pupils reactive, face symmetric, [moist] mucous membranes CARDIOVASCULAR: Regular rate and rhythm without murmurs, rubs or gallops. RESPIRATORY: Breath sounds equal bilaterally, no wheezes rales or rhonchi. ABDOMEN: Soft, epigastric pain no mass no swelling no pulsatile : No CVA tenderness EXTREMITIES: Normal range of motion, no clubbing or edema. Neurovascularly intact NEUROLOGICAL: Alert and oriented x4. SKIN: Warm, dry, no laceration, no petechiae, no rashes or lesions. Course Orders Ordered: ED Orders 08/06/22 08:43 CT angio chest abdomen pelvis Stat 08/06/22 10:14 Trop I [Troponin I] Stat Discontinued Medications Aspirin (Aspirin 81 Mg Chew Tab) 324 mg PO NOW ONE Stop: 08/06/22 08:09 Last Admin: 08/06/22 08:17 Dose: 324 mg Documented By: SUREKHA Pantoprazole Sodium (Pantoprazole 40 Mg Vial) 40 mg IV NOW ONE Stop: 08/06/22 08:11 Last Admin: 08/06/22 08:17 Dose: 40 mg Documented By: SUREKHA Vital Signs Vital signs: Vital Signs - 8 hr 08/06/22 09:30 08/06/22 10:00 08/06/22 10:11 Pulse Rate 66 72 80 Respiratory Rate 23 20 Blood Pressure Pulse Oximetry 98 96 97 08/06/22 10:11 08/06/22 10:30 08/06/22 11:00 Pulse Rate 73 75 Respiratory Rate 22 31 H Blood Pressure 159/86 H Pulse Oximetry 98 98 08/06/22 11:30 08/06/22 11:34 08/06/22 11:34 Pulse Rate 79 78 Respiratory Rate 20 31 H Blood Pressure 151/89 H Pulse Oximetry 98 98 MDM - Chest Pain Lab Data 08/06/22 08:00 08/06/22 08:00 Labs: Lab Results 08/06/22 08/06/22 08/06/22 Range/Units 08:00 08:00 08:00 WBC 6.9 (4.5-11.0) X10^3/uL RBC 3.83 L (4.5-5.9) X10^6/uL Hgb 14.4 (13.5-17.5) g/dL Hct 42.0 (41-53) % MCV 109.7 H (80-100) fL MCH 37.7 H (26-34) PG MCHC 34.3 (30-36) % RDW 15.1 H (11.6-14.8) % Plt Count 191 (150-400) X10^3/uL Neut % (Auto) 68.2 (50-75) % Lymph % (Auto) 22.7 L (25-40) % [place] % (Auto) 7.4 (3-14) % Eos % (Auto) 0.8 L (2-4) % Baso % (Auto) 0.9 (0-2) % Neut # (Auto) 4700 (5198-2139) /uL Lymph # (Auto) 1600 (2641-5444) /uL [place] # (Auto) 500 (0-900) /uL Eos # (Auto) 100 (0-450) /uL Baso # (Auto) 100 (0-100) /uL PT 11.9 (10.1-12.7) SECONDS INR 1.0 (0.9-1.3) APTT 28 (26-36) SECONDS Sodium 138 (137-145) mmol/L Potassium 4.2 (3.4-5.1) mmol/L Chloride 101 (98-107) mmol/L Carbon Dioxide 25 (22-32) mmol/L BUN 5 L (9-20) mg/dL Creatinine 0.97 (0.66-1.25) mg/dL Estimated GFR > 60 (>60) mL/min BUN/Creatinine Ratio 5.2 L (6-22) Glucose 95 (80-110) mg/dL Calcium 9.5 (8.4-10.2) mg/dL Magnesium 1.8 (1.6-2.3) mg/dL Total Bilirubin 1.7 H (0.2-1.3) mg/dL AST 171 H (17-59) IU/L ALT 122 H (<50) IU/L Alkaline Phosphatase 93 (38-126) U/L Total Creatine Kinase 206 H (55-170) U/L CK-MB (CK-2) 2.13 (<2.37) ng/mL CK-MB (CK-2) Rel Index 1.0 L (1.5-5.0) % Troponin I 0.014 (0.01-0.034) ng/mL Total Protein 8.8 H (6.3-8.2) g/dL Albumin 5.0 (3.5-5.0) g/dL Globulin 3.8 (1.7-4.1) g/dL Albumin/Globulin Ratio 1.3 (1.0-2.8) Lipase 1904 H (23-300) U/L 08/06/22 Range/Units 10:14 WBC (4.5-11.0) X10^3/uL RBC (4.5-5.9) X10^6/uL Hgb (13.5-17.5) g/dL Hct (41-53) % MCV (80-100) fL MCH (26-34) PG MCHC (30-36) % RDW (11.6-14.8) % Plt Count (150-400) X10^3/uL Neut % (Auto) (50-75) % Lymph % (Auto) (25-40) % [place] % (Auto) (3-14) % Eos % (Auto) (2-4) % Baso % (Auto) (0-2) % Neut # (Auto) (4743-6235) /uL Lymph # (Auto) (7323-7912) /uL [place] # (Auto) (0-900) /uL Eos # (Auto) (0-450) /uL Baso # (Auto) (0-100) /uL PT (10.1-12.7) SECONDS INR (0.9-1.3) APTT (26-36) SECONDS Sodium (137-145) mmol/L Potassium (3.4-5.1) mmol/L Chloride (98-107) mmol/L Carbon Dioxide (22-32) mmol/L BUN (9-20) mg/dL Creatinine (0.66-1.25) mg/dL Estimated GFR (>60) mL/min BUN/Creatinine Ratio (6-22) Glucose (80-110) mg/dL Calcium (8.4-10.2) mg/dL Magnesium (1.6-2.3) mg/dL Total Bilirubin (0.2-1.3) mg/dL AST (17-59) IU/L ALT (<50) IU/L Alkaline Phosphatase (38-126) U/L Total Creatine Kinase (55-170) U/L CK-MB (CK-2) (<2.37) ng/mL CK-MB (CK-2) Rel Index (1.5-5.0) % Troponin I < 0.012 (0.01-0.034) ng/mL Total Protein (6.3-8.2) g/dL Albumin (3.5-5.0) g/dL Globulin (1.7-4.1) g/dL Albumin/Globulin Ratio (1.0-2.8) Lipase (23-300) U/L Imaging Data ct angio: Radiologist's Impression: ent: Juaquin Sneed MR#: [id number] : 1955 Acct:[id number] Age/Sex: 66 / M Date of Service: 08/06/22 Loc: ED Accession Number: [id number] ?? Procedure: CT angio chest abdomen pelvis Ordering Provider: Shell Neff D.O. PROCEDURE:? CT ANGIO CHEST ABDOMEN PELVIS ? INDICATIONS:? epigastric pain with 10 stents ? TECHNIQUE:? Precontrast 5 mm thick sections acquired from the lung apices to the iliac crests.? After the administration of intravenous contrast, 2.5 mm thick sections again acquired from the lung apices to the iliac crests.? Maximum intensity projection (MIP) oblique sagittal and coronal reformats were then acquired.? For radiation dose reduction, the following was used:? automated exposure control.? ? COMPARISON:? [facility], CT, CT ABDOMEN PELVIS W CON, 04/19/2021, 15:58.? [facility], CR, XR CHEST 1V, 08/06/2022, 8:06. ? FINDINGS:? Image quality:? There is artifact associated with the metallic hardware. ? ? AORTA:? On precontrast imaging, no findings of mural hematomas can be seen. ? On postcontrast imaging, the aorta demonstrates normal enhancement, with normal caliber.? The ascending thoracic aorta is normal at 3.8 cm.? The aortic arch measures 2.8 cm.? The descending thoracic aorta measures 2.7 cm.? Within the abdomen, no aneurysm is seen.? The distal aorta is mildly ectatic at 2.3 cm. ? ? CHEST:? Lungs and pleura:? No acute airspace opacities.? No pleural effusions or pneumothorax.? Central and peripheral airways are patent and normal in caliber.? ? Mediastinum:? Advanced coronary artery calcification is seen.? Heart size is normal.? No pericardial effusion.? No mediastinal or hilar adenopathy by size criteria.? Central pulmonary arteries are normal in size.? Esophagus is normal in caliber.? No hiatal hernias.? ? Bones and chest wall:? No axillary adenopathy by size criteria.? Thyroid gland demonstrates no significant abnormality.? No suspicious bony lesions.? No vertebral body compression fractures.? ? ? ABDOMEN:? Vasculature:? Celiac trunk and mesenteric arteries are patent.? Renal arteries are also patent.? ? Solid organs:? Liver is normal in size and enhancement.? Gallbladder wall is not thickened.? Biliary system is non dilated.? ? There is mild inflammatory change seen adjacent to the head and uncinate process of the pancreas.? The pancreas otherwise is unremarkable, with normal enhancement.? The pancreatic duct is not dilated. ? Spleen is normal in size and enhancement.? No adrenal nodules.? Both kidneys are normal in size and enhancement, without hydronephrosis.? ? Peritoneum and bowel:? Focal inflammatory change can be seen involving4 the 2nd portion of the duodenum, with fatty stranding and moderate wall thickening.? No focal free fluid or fluid collections can be seen.? No free air is seen. The small bowel is otherwise unremarkable. There is focal moderate wall thickening seen involving the distal descending colon and the sigmoid colon.? Mild diverticula formation can be seen within this region. A normal appendix is seen.? No focal right lower quadrant inflammatory change can be seen. The stomach is relatively decompressed, which limits its evaluation. ? Nodes and vessels:? No retroperitoneal or mesenteric adenopathy by size criteria.? Inferior vena cava is normal in morphology.? ? Miscellaneous:? No ventral hernias.? ? ? PELVIS:? Genitourinary:? Bladder wall thickness is normal.? Vasectomy clips can be seen.? ? Miscellaneous:? No inguinal adenopathy.? Containing inguinal hernias are seen.? No ventral hernias.? ? Bones:? No suspicious bony lesions.? No vertebral body compression fractures.? Left hip arthroplasty hardware is seen.? Age-appropriate bony degenerative changes are seen.? ? ? IMPRESSION:? No significant aortic abnormality can be seen.? No aneurysm or dissection. ? There is focal inflammatory change is seen, which is centered along the 2nd portion of the duodenum.? Duodenitis is suspected.? No leroy findings of perforation or abscess can be seen.? When clinically appropriate, please consider upper endoscopy. ? There is inflammatory change seen adjacent to the head and uncinate process of the pancreas.? Pancreatitis is possible, yet this process appears more centered within the duodenum itself. ? There is distal colonic thickening seen.? This is felt most likely to be related to a chronic process, although please correlate with clinical findings of colitis.? When clinically appropriate, please consider follow-up colonoscopy for further evaluation. ? Additional findings:? Prominent coronary artery calcification Normal appendix Mild bilateral fat containing inguinal hernias Vasectomy clips Left hip arthroplasty hardware ? Dictated by: Chapito Dixon M.D. on 08/06/2022 at 8:47 ? ? ECG Data Interpretation: Normal sinus rhythm rate 71 ME interval 150 QRS [address] changes persistent T-wave inversions in lead 3 similar to previous EKG Normal sinus rhythm rate 70 similar to prior no acute changes MDM Narrative Medical decision making narrative: Patient is a 66-year-old male history of coronary artery disease multiple stents GERD hiatal hernia presenting today with some ongoing epigastric pain. Not relieved with medications. Touch he has no EKG changes today he has 2- troponins. He is found have an elevated lipase of 1900. CT angio was done to r ule out dissection he initially was hypertensive with some epigastric pain. CT showed duodenitis and inflammatory changes to pancreatic head. Symptoms are consistent with mild early pancreatitis. AST ALT are elevated but at baseline. Bilirubin today is slightly more elevated at 1.7. No evidence of cholecystitis or cholelithiasis on CT and he is not tenderness right upper quadrant. Patient overall appears comfortable not really nauseated not requiring anything for pain. We discussed going home. He thinks he can drink water which he has been able to do so here in the ED. I also discussed with him when he needs to return to the ER for further evaluation he understands and agrees. I discussed all findings with the patient, Education has been performed regarding treatment plan, diagnosis, warning signs and symptoms and all concerns have been addressed. Verbally agree with and understood all of the above. Discharge Plan Departure Patient Disposition: Home Clinical Impression: Acute pancreatitis Instructions: DI for Pancreatitis Activity Restrictions/Additional Instructions: *You have been diagnosed with pancreatitis *What to do: At this time increase fluid intake recommend water Gatorade broth. You may eat but it may exacerbate your pain. This can become complicated ho wever you have early signs no complication yet *Continue to take medications as directed Zofran 4 mg every 8 hours if needed for nausea vomiting [place] 1 tablet every 6 hours if needed for severe pain *Follow up with your primary care provider in 2-3 days or call [phone] *Return to ER if you should have increasing pain vomiting fever unable to tolerate fluids or any new, worsening or concerning symptoms CONTROLLED SUBSTANCE DISCHARGE (Narcotoic/benzodiazepine/Flexeril/Phenergan) 1. You have been prescribed narcotic medications, it does have acetaminophen/Tylenol/paracetamol in it, DO NOT TAKE MORE THAN 4,00mg in 24 hours of Tylenol. TRAMADOL DOES NOT CONTAIN TYLENOL 2. Please understand that we cannot provide further refills of narcotics, benzodiazepines or controlled substances through the ED and her pain management will need to be through your provider. 3. While on these medications you cannot drive or operate heavy machinery. 4. You cannot sign legal documents or perform any duties such as this. 5. As long as you're taking opiate pain medications he should also be taking a stool softener such as Colace, Dulcolax, MiraLAX or prune juice, to help avoid constipation. Prescriptions: New hydrocodone-acetaminophen 5-325 mg tablet 1 tab PO Q6H PRN (Reason: pain) Qty: 10 0RF ondansetron 4 mg tablet,disintegrating 4 mg PO Q8H PRN (Reason: nausea and vomiting) Qty: 10 0RF No Action ondansetron HCl [Zofran] 4 mg tablet 4 mg PO Q6H PRN (Reason: nausea and vomiting) Qty: 10 0RF Referrals: Miscellaneous,Doctor, MD [Primary Care Provider] - Stand Alone Forms: Patient Portal/API
[2022-08-06] MEDS: PANTOPRAZOLE 40 MG VIAL IV (08:17)
[2022-08-06] MEDS: ASPIRIN 81 MG CHEW TAB 324 MG PO (08:17)
[2022-08-06 08:21] LABS: Prothrombin Time 11.9 SECONDS (10.1-12.7)
[2022-08-06 08:24] LABS: PTT Partial Thromboplastin Tim 28 SECONDS (26-36)
[2022-08-06 08:25] LABS: Alanine Aminotransferase 122 IU/L (<50); Albumin Globulin Ratio 1.3 (1.0-2.8); Alkaline Phosphatase 93 U/L (38-126); Aspartate Aminotransferase 171 IU/L (17-59); BUN Creatinine Ratio 5.2 (6-22); Bilirubin Total 1.7 mg/dL (0.2-1.3); Blood Urea Nitrogen 5 mg/dL (9-20); Calcium 9.5 mg/dL (8.4-10.2); Carbon Dioxide 25 mmol/L (22-32); Chloride 101 mmol/L (98-107); Creatine Kinase 206 U/L (55-170); Estimated Glomerular Filt Rate > 60 mL/min (>60); Globulin 3.8 g/dL (1.7-4.1); Glucose 95 mg/dL (80-110); Lipase 1904 U/L (23-300); Magnesium 1.8 mg/dL (1.6-2.3); Sodium 138 mmol/L (137-145); Total Protein 8.8 g/dL (6.3-8.2)
[2022-08-06 08:30] LABS: Potassium 4.2 mmol/L (3.4-5.1)
[2022-08-06 08:37] LABS: Troponin I 0.014 ng/mL (0.01-0.034)
[2022-08-06 08:40] LABS: Creatine Kinase MB 2.13 ng/mL (<2.37)
[2022-08-06 08:41] LABS: HEMOLYSIS 160 (0-50)
--- NOTE | 2022-08-06 08:43 | DI.CT.S_ITS ---
PROCEDURE: CT ANGIO CHEST ABDOMEN PELVIS INDICATIONS: epigastric pain with 10 stents TECHNIQUE: Precontrast 5 mm thick sections acquired from the lung apices to the iliac crests. After the administration of intravenous contrast, 2.5 mm thick sections again acquired from the lung apices to the iliac crests. Maximum intensity projection (MIP) oblique sagittal and coronal reformats were then acquired. For radiation dose reduction, the following was used: automated exposure control. COMPARISON: [facility], CT, CT ABDOMEN PELVIS W CON, 04/19/2021, 15:58. [facility], CR, XR CHEST 1V, 08/06/2022, 8:06. FINDINGS: Image quality: There is artifact associated with the metallic hardware. AORTA: On precontrast imaging, no findings of mural hematomas can be seen. On postcontrast imaging, the aorta demonstrates normal enhancement, with normal caliber. The ascending thoracic aorta is normal at 3.8 cm. The aortic arch measures 2.8 cm. The descending thoracic aorta measures 2.7 cm. Within the abdomen, no aneurysm is seen. The distal aorta is mildly ectatic at 2.3 cm. CHEST: Lungs and pleura: No acute airspace opacities. No pleural effusions or pneumothorax. Central and peripheral airways are patent and normal in caliber. Mediastinum: Advanced coronary artery calcification is seen. Heart size is normal. No pericardial effusion. No mediastinal or hilar adenopathy by size criteria. Central pulmonary arteries are normal in size. Esophagus is normal in caliber. No hiatal hernias. Bones and chest wall: No axillary adenopathy by size criteria. Thyroid gland demonstrates no significant abnormality. No suspicious bony lesions. No vertebral body compression fractures. ABDOMEN: Vasculature: Celiac trunk and mesenteric arteries are patent. Renal arteries are also patent. Solid organs: Liver is normal in size and enhancement. Gallbladder wall is not thickened. Biliary system is non dilated. There is mild inflammatory change seen adjacent to the head and uncinate process of the pancreas. The pancreas otherwise is unremarkable, with normal enhancement. The pancreatic duct is not dilated. Spleen is normal in size and enhancement. No adrenal nodules. Both kidneys are normal in size and enhancement, without hydronephrosis. Peritoneum and bowel: Focal inflammatory change can be seen involving4 the 2nd portion of the duodenum, with fatty stranding and moderate wall thickening. No focal free fluid or fluid collections can be seen. No free air is seen. The small bowel is otherwise unremarkable. There is focal moderate wall thickening seen involving the distal descending colon and the sigmoid colon. Mild diverticula formation can be seen within this region. A normal appendix is seen. No focal right lower quadrant inflammatory change can be seen. The stomach is relatively decompressed, which limits its evaluation. Nodes and vessels: No retroperitoneal or mesenteric adenopathy by size criteria. Inferior vena cava is normal in morphology. Miscellaneous: No ventral hernias. PELVIS: Genitourinary: Bladder wall thickness is normal. Vasectomy clips can be seen. Miscellaneous: No inguinal adenopathy. Containing inguinal hernias are seen. No ventral hernias. Bones: No suspicious bony lesions. No vertebral body compression fractures. Left hip arthroplasty hardware is seen. Age-appropriate bony degenerative changes are seen. IMPRESSION: No significant aortic abnormality can be seen. No aneurysm or dissection. There is focal inflammatory change is seen, which is centered along the 2nd portion of the duodenum. Duodenitis is suspected. No leroy findings of perforation or abscess can be seen. When clinically appropriate, please consider upper endoscopy. There is inflammatory change seen adjacent to the head and uncinate process of the pancreas. Pancreatitis is possible, yet this process appears more centered within the duodenum itself. There is distal colonic thickening seen. This is felt most likely to be related to a chronic process, although please correlate with clinical findings of colitis. When clinically appropriate, please consider follow-up colonoscopy for further evaluation. Additional findings: Prominent coronary artery calcification Normal appendix Mild bilateral fat containing inguinal hernias Vasectomy clips Left hip arthroplasty hardware Dictated by: Chapito Dixon M.D. on 08/06/2022 at 8:47 Approved by: Chapito Dixon M.D. on 08/06/2022 at 8:55
[2022-08-06 10:42] LABS: Troponin I < 0.012 ng/mL (0.01-0.034)
== END 2022-08-06 12:05 | disposition home or self-care (01) ==
PROVIDERS: Emergency Provider Emergency Medicine
DX: K85.90 Acute pancreatitis without necrosis or infection, unspecified (principal)
CPT/HCPCS: 36415; 71045; 71275; 74174; 80053; 82550; 82553; 83690; 83735; 84484; 85025; 85610; 85730; 93005; 96374; 99284; 99285; C9113; Q9967

== ENCOUNTER 2023-02-12 19:27 | Emergency (ER) | payer MEDICARE, BC, SELFPAY ==
[2023-02-12 20:12] VITALS: BP 111/63; PULSE 63; RESP 20; TEMP 36.6; O2SAT 97; BMI 23.7
== END 2023-02-12 22:06 | disposition left against medical advice (07) ==
PROVIDERS: Emergency Provider Emergency Medicine
DX: L50.9 Urticaria, unspecified (principal)
CPT/HCPCS: 99281

== ENCOUNTER 2023-08-12 05:52 | Emergency (ER) | payer MEDICARE, BC, SELFPAY ==
[2023-08-12] VITALS (10 sets, daily range): BP systolic 161–188; BP diastolic 75–98; PULSE 74–91; RESP 18–23; TEMP 36.6; O2SAT 96–98; BMI 24.3
--- NOTE | 2023-08-12 06:08 | ED_ITS ---
HPI - Nausea/Vomiting/Diarrhea <Shell Neff, DO - Last Filed: 08/15/23 00:54> General Chief complaint: Nausea/Vomiting/Diarrhea Stated complaint: STOMACH PAIN/NAUSEA Time Seen by Provider: 08/12/23 06:08 Source: patient Mode of arrival: Ambulatory History of Present Illness HPI Narrative: Patient 67-year-old male history of coronary artery disease multiple stents hypertension hyperlipidemia, hiatal hernia surgery bilateral inguinal hernia surgery presenting today with nausea vomiting. He reports that started yesterday dry heaving without significant warning. He gets really diaphoretic. He has been abdominal pain he is passing gas. He has not having any chest pain or shortness of breath. He says sometimes he is abdominal pain just not now. No painful frequent urination. No fever chills or cough. Related Data Home Medications Medication Instructions Recorded Confirmed albuterol sulfate 90 mcg/actuation inhalation 07/26/23 07/26/23 aerosol inhaler amlodipine 2.5 mg tablet 2.5 mg PO BID 07/26/23 07/26/23 bupropion HCl 300 mg 24 hr tablet, 300 mg PO DAILY 07/26/23 07/26/23 extended release clopidogrel 75 mg tablet 75 mg PO DAILY 07/26/23 07/26/23 docusate sodium 100 mg capsule 100 mg PO BID PRN 07/26/23 07/26/23 (Stool Softener) liver support 1 cap PO DAILY 07/26/23 lubiprostone 8 mcg capsule 8 mcg PO BID 07/26/23 07/26/23 magnesium oxide 400 mg PO DAILY 07/26/23 07/26/23 metoprolol succinate 25 mg 25 mg PO DAILY 07/26/23 07/26/23 tablet,extended release 24 hr ondansetron 4 mg disintegrating 4 mg PO Q8H PRN 07/26/23 07/26/23 tablet rosuvastatin 40 mg tablet 40 mg PO DAILY 07/26/23 07/26/23 venlafaxine 75 mg capsule,extended 75 mg PO DAILY 07/26/23 07/26/23 release 24 hr Previous Rx's Medication Instructions Recorded fluticasone propionate 50 1 spray intranasal Q12H #16 grams 12/01/22 mcg/actuation nasal spray,suspension (Flonase Allergy Relief) ondansetron 4 mg disintegrating 4 mg PO Q6H PRN nausea and 08/12/23 tablet vomiting #20 tabs Allergies Allergy/AdvReac Type Severity Reaction Status Date / Time fentanyl AdvReac Severe Vomiting Verified 07/26/23 12:36 Review of Systems <DO Michael Layton Last Filed: 08/12/23 09:57> Review of Systems Narrative: see HPI Patient History <Shell Neff DO - Last Filed: 08/15/23 00:54> Medical History 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 Chronic nausea Slow transit constipation Asthma, mild intermittent Mixed hyperlipidemia Essential hypertension Coronary artery disease Chronic constipation Social History marital status: details: , 2 siblings, 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 HEENT: Head atraumatic,EOMI, pupils reactive, face symmetric, moist mucous membranes CARDIOVASCULAR: Regular rate and rhythm without murmurs, rubs or gallops. RESPIRATORY: Breath sounds equal bilaterally, no wheezes rales or rhonchi. ABDOMEN: Soft, minimally tender no guarding no rebound no right upper quadrant pain negative Smith's sign : No CVA tenderness EXTREMITIES: Normal range of motion, no clubbing or edema. Neurovascularly intact NEUROLOGICAL: Alert and oriented x4.Normal gait and speech. Cranial nerves II through XII grossly intact. SKIN: Warm, dry, no laceration, no petechiae, no rashes or lesions. <DO Michael Layton Last Filed: 08/12/23 09:57> Initial Vital Signs Initial Vital Signs: Vital Signs Temperature 98 F 08/12/23 06:03 Pulse Rate 88 08/12/23 06:03 Respiratory Rate 18 08/12/23 06:03 Blood Pressure 188/98 H 08/12/23 06:03 Pulse Oximetry 98 08/12/23 06:03 Oxygen Delivery Method Room Air 08/12/23 06:03 Course <Shell Neff DO - Last Filed: 08/15/23 00:54> Orders Ordered: Discontinued Medications Sodium Chloride (Normal Saline 0.9%) 1,000 mls @ 1,000 mls/hr IV CONT JOSEY Last Infusion: 08/12/23 07:45 Dose: Infused Documented By: Admin: 08/12/23 06:25 Dose: 1,000 mls/hr Documented By: ZHOU Ondansetron HCl (Ondansetron 4 Mg/2 Ml Inj) 4 mg IV NOW ONE Stop: 08/12/23 06:16 Last Admin: 08/12/23 06:25 Dose: 4 mg Documented By: ZHOU Vital Signs Vital signs: Vital Signs - 8 hr 08/12/23 06:03 08/12/23 06:16 08/12/23 07:12 Temperature 98 F Pulse Rate 88 74 87 Respiratory Rate 18 Blood Pressure 188/98 H Pulse Oximetry 98 98 97 Oxygen Delivery Method Room Air 08/12/23 07:30 08/12/23 08:00 08/12/23 08:01 Temperature Pulse Rate 79 76 Respiratory Rate 21 23 Blood Pressure 164/75 H Pulse Oximetry 96 97 Oxygen Delivery Method 08/12/23 08:01 08/12/23 08:30 08/12/23 08:30 Temperature Pulse Rate 77 79 Respiratory Rate 22 Blood Pressure 167/94 H Pulse Oximetry 97 96 Oxygen Delivery Method 08/12/23 08:42 08/12/23 08:42 08/12/23 09:00 Temperature Pulse Rate 91 H Respiratory Rate 21 Blood Pressure 165/97 H 161/93 H Pulse Oximetry 96 Oxygen Delivery Method 08/12/23 09:00 Temperature Pulse Rate 77 Respiratory Rate 20 Blood Pressure Pulse Oximetry 97 Oxygen Delivery Method <Alec Alicea DO - Last Filed: 08/12/23 09:57> Orders Ordered: Discontinued Medications Sodium Chloride (Normal Saline 0.9%) 1,000 mls @ 1,000 mls/hr IV CONT JOSEY Last Infusion: 08/12/23 07:45 Dose: Infused Documented By: Admin: 08/12/23 06:25 Dose: 1,000 mls/hr Documented By: ZHOU Ondansetron HCl (Ondansetron 4 Mg/2 Ml Inj) 4 mg IV NOW ONE Stop: 08/12/23 06:16 Last Admin: 08/12/23 06:25 Dose: 4 mg Documented By: ZHOU Vital Signs Vital signs: Vital Signs - 8 hr 08/12/23 06:03 08/12/23 06:16 08/12/23 07:12 Temperature 98 F Pulse Rate 88 74 87 Respiratory Rate 18 Blood Pressure 188/98 H Pulse Oximetry 98 98 97 Oxygen Delivery Method Room Air 08/12/23 07:30 08/12/23 08:00 08/12/23 08:01 Temperature Pulse Rate 79 76 Respiratory Rate 21 23 Blood Pressure 164/75 H Pulse Oximetry 96 97 Oxygen Delivery Method 08/12/23 08:01 08/12/23 08:30 08/12/23 08:30 Temperature Pulse Rate 77 79 Respiratory Rate 22 Blood Pressure 167/94 H Pulse Oximetry 97 96 Oxygen Delivery Method 08/12/23 08:42 08/12/23 08:42 08/12/23 09:00 Temperature Pulse Rate 91 H Respiratory Rate 21 Blood Pressure 165/97 H 161/93 H Pulse Oximetry 96 Oxygen Delivery Method 08/12/23 09:00 Temperature Pulse Rate 77 Respiratory Rate 20 Blood Pressure Pulse Oximetry 97 Oxygen Delivery Method MDM - Nausea/Vomiting/Diarrhea <Shell Neff DO - Last Filed: 08/15/23 00:54> Lab Data 08/12/23 06:28 08/12/23 06:28 Labs: Lab Results 08/12/23 08/12/23 Range/Units 06:28 08:25 WBC 7.6 (4.5-11.0) X10^3/uL RBC 3.36 L (4.5-5.9) X10^6/uL Hgb 13.0 L (13.5-17.5) g/dL Hct 37.5 L (41-53) % MCV 111.5 H (80-100) fL MCH 38.8 H (26-34) PG MCHC 34.8 (30-36) % RDW 14.5 (11.6-14.8) % Plt Count 120 L (150-400) X10^3/uL Neut % (Auto) 78.6 H (50-75) % Lymph % (Auto) 11.9 L (25-40) % [place] % (Auto) 8.8 (3-14) % Eos % (Auto) 0.1 L (2-4) % Baso % (Auto) 0.6 (0-2) % Neut # (Auto) 5900 (7880-9349) /uL Lymph # (Auto) 900 L (2746-2917) /uL [place] # (Auto) 700 (0-900) /uL Eos # (Auto) 0 (0-450) /uL Baso # (Auto) 0 (0-100) /uL RBC Morphology See below Macrocytosis 2+ H Sodium 133 L (137-145) mmol/L Potassium 4.1 (3.4-5.1) mmol/L Chloride 95 L (98-107) mmol/L Carbon Dioxide 23 (22-32) mmol/L BUN 19 (9-20) mg/dL Creatinine 1.13 (0.66-1.25) mg/dL Estimated GFR > 60 (>60) mL/min BUN/Creatinine Ratio 16.8 (6-22) Glucose 117 H (80-110) mg/dL Calcium 10.0 (8.4-10.2) mg/dL Total Bilirubin 2.2 H (0.2-1.3) mg/dL AST 129 H (17-59) IU/L ALT 79 H (<50) IU/L Alkaline Phosphatase 74 (38-126) U/L Total Creatine Kinase 339 H 360 H (55-170) U/L Troponin I 0.012 0.013 (0.01-0.034) ng/mL Total Protein 8.0 (6.3-8.2) g/dL Albumin 4.7 (3.5-5.0) g/dL Globulin 3.3 (1.7-4.1) g/dL Albumin/Globulin Ratio 1.4 (1.0-2.8) Lipase 1401 H (23-300) U/L ECG Data Interpretation: Normal sinus rhythm T-wave inversion noted in lead [address] changes MDM Narrative Medical decision making narrative: Patient 67-year-old male presents today with 24 hours if dry heaving and nausea. No significant abdominal pain or chest pain but he was diaphoretic with history of coronary artery disease Blood work reviewed, CBC 7.6, hemoglobin 13.0, hematocrit 37.5, MCV 111.5, platelets , sodium 133, potassium 4.1, BUN 19 120 sodium 133, potassium 4.1, chloride 95, carbon dioxide 23, BUN 19 creatinine 1.13, bilirubin 2.2, previously 1.7, AST 129 previously 171, ALT 79 previously 122, alk-phos 74, lipase 1400 previously 1900 troponin negative Patient is signed out to Dr. Alicea awaiting CT abdomen and chest x-ray. Patient has mildly elevated lipase with nausea vomiting consistent with mild pancreatitis. <Alec Alicea, DO - Last Filed: 08/12/23 09:57> Lab Data Attestation: I reviewed the patient's lab results. Labs: Lab Results 08/12/23 08/12/23 Range/Units 06:28 08:25 WBC 7.6 (4.5-11.0) X10^3/uL RBC 3.36 L (4.5-5.9) X10^6/uL Hgb 13.0 L (13.5-17.5) g/dL Hct 37.5 L (41-53) % MCV 111.5 H (80-100) fL MCH 38.8 H (26-34) PG MCHC 34.8 (30-36) % RDW 14.5 (11.6-14.8) % Plt Count 120 L (150-400) X10^3/uL Neut % (Auto) 78.6 H (50-75) % Lymph % (Auto) 11.9 L (25-40) % [place] % (Auto) 8.8 (3-14) % Eos % (Auto) 0.1 L (2-4) % Baso % (Auto) 0.6 (0-2) % Neut # (Auto) 5900 (1337-4139) /uL Lymph # (Auto) 900 L (5131-7879) /uL [place] # (Auto) 700 (0-900) /uL Eos # (Auto) 0 (0-450) /uL Baso # (Auto) 0 (0-100) /uL RBC Morphology See below Macrocytosis 2+ H Sodium 133 L (137-145) mmol/L Potassium 4.1 (3.4-5.1) mmol/L Chloride 95 L (98-107) mmol/L Carbon Dioxide 23 (22-32) mmol/L BUN 19 (9-20) mg/dL Creatinine 1.13 (0.66-1.25) mg/dL Estimated GFR > 60 (>60) mL/min BUN/Creatinine Ratio 16.8 (6-22) Glucose 117 H (80-110) mg/dL Calcium 10.0 (8.4-10.2) mg/dL Total Bilirubin 2.2 H (0.2-1.3) mg/dL AST 129 H (17-59) IU/L ALT 79 H (<50) IU/L Alkaline Phosphatase 74 (38-126) U/L Total Creatine Kinase 339 H 360 H (55-170) U/L Troponin I 0.012 0.013 (0.01-0.034) ng/mL Total Protein 8.0 (6.3-8.2) g/dL Albumin 4.7 (3.5-5.0) g/dL Globulin 3.3 (1.7-4.1) g/dL Albumin/Globulin Ratio 1.4 (1.0-2.8) Lipase 1401 H (23-300) U/L Imaging Data Chest x-ray: Radiologist's Impression: PROCEDURE: XR CHEST 1V INDICATIONS: chest pain TECHNIQUE: One view of the chest was acquired. COMPARISON: [facility], , XR CHEST 1V, 08/06/2022, 8:06. FINDINGS: Surgical changes and devices: None. Lungs and pleura: Similar prominence of the right hilum. No dense consolidation or pleural effusion. Mildly low lung volumes. Mediastinum: Heart size is at the upper limit of normal. Bones and chest wall: Unremarkable IMPRESSION: No acute radiographic abnormality on this limited single view radiograph with low lung volumes. CT scan - abdomen/pelvis: Radiologist's Impression: PROCEDURE:? CT ABDOMEN PELVIS W CON ? INDICATIONS:? ab pain hx of hernia surgeries ? TECHNIQUE:?? After the administration of intravenous contrast, axial sections acquired from the lung? bases to the pubic symphysis.? Coronal and sagittal reformats were performed.? For? radiation dose reduction, the following was used:? automated exposure control, adjustment? of mA and/or kV according to patient size.?? ? COMPARISON:? [facility], CT, CT ABDOMEN PELVIS W CON, 04/19/2021, 15:58.? [facility], CT, CT ANGIO CHEST ABDOMEN PELVIS, 08/06/2022, 8:51. ? FINDINGS:?? Image quality:? Diagnostic ? Lower chest:? No dense consolidation.? No pleural effusions.? There are coronary? calcifications.? Mildly patulous distal esophagus is partially seen, nonspecific. ? Liver:? Hepatic steatosis. Gallbladder and biliary system:? Distended gallbladder.? Mild pericholecystic edema.? No? pathologic biliary ductal dilation. Pancreas:? There is mild fat stranding around the pancreatic head, along the duodenal? groove as well. Spleen:? Nonenlarged Adrenals:? No discrete nodules Kidneys:? No solid mass.? No hydronephrosis. ? Vessels and lymph nodes:? Atherosclerotic calcifications.? No pathologic lymphadenopathy? by size criteria.? The main portal vein appears patent. ? Bowel and peritoneum:? No evidence of small bowel obstruction.? No pathologic ascites or? drainable abscess.? Wall thickening in the distal colon.? There are diverticula. ? Body wall:? Postsurgical changes.? No bowel containing hernia on this non dynamic study. ? Pelvis:? Obscured by metallic artifact.? The bladder is under distended.? Prostate is not? well seen. ? Bones:? Left hip arthroplasty.? Degenerative changes.? Suspected nonacute appearing rib? fractures are present, for example the right 12th rib. IMPRESSION:? Mild edematous changes surrounding the pancreatic head and duodenal groove,? suspicious for groove pancreatitis versus duodenitis.? This is similar, and less severe? than July [address]22 CT. ? Distal colonic wall thickening likely chronic diverticular disease versus colitis.?? Consider age-appropriate colonoscopy correlation. ? Other findings as above.? US - abdomen: Radiologist's Impression: PROCEDURE: US ABDOMEN LIMITED INDICATIONS: RIGHT UPPER QUADRANT PAIN TECHNIQUE: Real-time focused scanning was performed of the abdomen, with image documentation. COMPARISON: [facility], CT, CT ABDOMEN PELVIS W CON, 08/12/2023, 7:03. FINDINGS: 14 cm. The deep field is not well seen due to increased echogenicity and bowel gas. No right upper quadrant focal tenderness. No wall thickening. No cholelithiasis. CBD is at the upper limit of normal at 6 mm. The distal portion is not well seen. Pancreas is not well seen. IMPRESSION: Limited exam due to markedly increased hepatic echogenicity and bowel gas. Increased hepatic echogenicity is most commonly due to steatosis. The gallbladder is mildly distended, but without stones, wall thickening, or sonographic Smith sign to suggest acute inflammation. MDM Narrative Medical decision making narrative: Patient 67-year-old male presents today with 24 hours if dry heaving and nausea. No significant abdominal pain or chest pain but he was diaphoretic with history of coronary artery disease Blood work reviewed, CBC 7.6, hemoglobin 13.0, hematocrit 37.5, MCV 111.5, platelets , sodium 133, potassium 4.1, BUN 19 120 sodium 133, potassium 4.1, chloride 95, carbon dioxide 23, BUN 19 creatinine 1.13, bilirubin 2.2, previously 1.7, AST 129 previously 171, ALT 79 previously 122, alk-phos 74, lipase 1400 previously 1900 troponin negative Patient is signed out to Dr. Alicea awaiting CT abdomen and chest x-ray. Patient has mildly elevated lipase with nausea vomiting consistent with mild pancreatitis. Dr Alicea: Received turned over. Review patient's history and physical exam. CT scan shows distended gallbladder but no other acute pathology. He does have an elevation in his LFTs in his slight elevation in his lipase. He has no specific upper abdominal discomfort. Right upper quadrant ultrasound again shows distended gallbladder but no other signs of an acute cholecystitis. I suspect that his elevated lipase, hyperbilirubinemia and transaminitis is because of his alcohol. He does state that he drinks wine on a daily basis. He was able to tolerate oral intake without any nausea pain. Will discharge patient home. I will refill his Zofran. He was instructed that most likely his alcohol as causing his issues today and I recommended that he tried to cut back on his alcohol. Recommended a follow-up with the primary doctor. Discharge Plan Departure Patient Disposition: Home Clinical Impression: Nausea, Transaminitis, Hyperbilirubinemia Instructions: DI for Nausea -- Adult Activity Restrictions/Additional Instructions: I suspect that the cause of most of your lab abnormalities today and most likely the cause of your nausea is the amount of alcohol that you are consuming. Recommend that you consider cutting back on the amount that you were drinking. It is also important that you follow-up with the primary doctor. You can contact [phone] to help you establish a primary doctor. Return to the emergency department for new symptoms. Prescriptions: New ondansetron 4 mg tablet,disintegrating 4 mg PO Q6H PRN (Reason: nausea and vomiting) Qty: 20 0RF No Action fluticasone propionate [Flonase Allergy Relief] 50 mcg/actuation spray,suspension 1 spray intranasal Q12H Qty: 16 0RF Rx Instructions: administer into each nostril rosuvastatin 40 mg tablet 40 mg PO DAILY metoprolol succinate 25 mg tablet extended release 24 hr 25 mg PO DAILY clopidogrel 75 mg tablet 75 mg PO DAILY venlafaxine 75 mg capsule,extended release 24hr 75 mg PO DAILY amlodipine 2.5 mg tablet 2.5 mg PO BID bupropion HCl 300 mg tablet extended release 24 hr 300 mg PO DAILY albuterol sulfate 90 mcg/actuation HFA aerosol inhaler inhalation ondansetron 4 mg tablet,disintegrating 4 mg PO Q8H PRN lubiprostone 8 mcg capsule 8 mcg PO BID magnesium oxide 400 mg magnesium tablet 400 mg PO DAILY liver support 1 cap PO DAILY docusate sodium [Stool Softener] 100 mg capsule 100 mg PO BID PRN Referrals: Francisco Jade MD [Primary Care Provider] - Stand Alone Forms: Patient Portal/API
--- NOTE | 2023-08-12 06:15 | DI.CT.S_ITS ---
PROCEDURE: CT ABDOMEN PELVIS W CON INDICATIONS: ab pain hx of hernia surgeries TECHNIQUE: After the administration of intravenous contrast, axial sections acquired from the lung bases to the pubic symphysis. Coronal and sagittal reformats were performed. For radiation dose reduction, the following was used: automated exposure control, adjustment of mA and/or kV according to patient size. COMPARISON: [facility], CT, CT ABDOMEN PELVIS W CON, 04/19/2021, 15:58. [facility], CT, CT ANGIO CHEST ABDOMEN PELVIS, 08/06/2022, 8:51. FINDINGS: Image quality: Diagnostic Lower chest: No dense consolidation. No pleural effusions. There are coronary calcifications. Mildly patulous distal esophagus is partially seen, nonspecific. Liver: Hepatic steatosis. Gallbladder and biliary system: Distended gallbladder. Mild pericholecystic edema. No pathologic biliary ductal dilation. Pancreas: There is mild fat stranding around the pancreatic head, along the duodenal groove as well. Spleen: Nonenlarged Adrenals: No discrete nodules Kidneys: No solid mass. No hydronephrosis. Vessels and lymph nodes: Atherosclerotic calcifications. No pathologic lymphadenopathy by size criteria. The main portal vein appears patent. Bowel and peritoneum: No evidence of small bowel obstruction. No pathologic ascites or drainable abscess. Wall thickening in the distal colon. There are diverticula. Body wall: Postsurgical changes. No bowel containing hernia on this non dynamic study. Pelvis: Obscured by metallic artifact. The bladder is under distended. Prostate is not well seen. Bones: Left hip arthroplasty. Degenerative changes. Suspected nonacute appearing rib fractures are present, for example the right 12th rib. IMPRESSION: Mild edematous changes surrounding the pancreatic head and duodenal groove, suspicious for groove pancreatitis versus duodenitis. This is similar, and less severe than July [address] CT. Distal colonic wall thickening likely chronic diverticular disease versus colitis. Consider age-appropriate colonoscopy correlation. Other findings as above. Dictated by: Boni Hernandez M.D. on 08/12/2023 at 7:47 Approved by: Boni Hernandez M.D. on 08/12/2023 at 7:53
--- NOTE | 2023-08-12 06:16 | DI.RAD.S_ITS ---
PROCEDURE: XR CHEST 1V INDICATIONS: chest pain TECHNIQUE: One view of the chest was acquired. COMPARISON: [facility], CR, XR CHEST 1V, 08/06/2022, 8:06. FINDINGS: Surgical changes and devices: None. Lungs and pleura: Similar prominence of the right hilum. No dense consolidation or pleural effusion. Mildly low lung volumes. Mediastinum: Heart size is at the upper limit of normal. Bones and chest wall: Unremarkable IMPRESSION: No acute radiographic abnormality on this limited single view radiograph with low lung volumes. Dictated by: Boni Hernandez M.D. on 08/12/2023 at 7:08 Approved by: Boni Hernandez M.D. on 08/12/2023 at 7:09
[2023-08-12] MEDS: SODIUM CHLORIDE 0.9% 1,000 ML 1000 ML IV (06:25)
[2023-08-12] MEDS: ONDANSETRON 4 MG/2 ML INJ IV (06:25)
[2023-08-12 06:39] LABS: Add Manual Diff / Slide Review NO; Basophils Absolute Auto 0 /uL (0-100); Basophils Percent Auto 0.6 % (0-2); Eosinophils Absolute Auto 0 /uL (0-450); Eosinophils Percent Auto 0.1 % (2-4); Hematocrit 37.5 % (41-53); Lymphocytes Absolute Auto 900 /uL (1100-4500); Lymphocytes Percent Auto 11.9 % (25-40); Mean Corpuscular HGB Conc 34.8 % (30-36); Mean Corpuscular Hemoglobin 38.8 PG (26-34); Mean Corpuscular Volume 111.5 fL (80-100); Monocytes Absolute Auto 700 /uL (0-900); Monocytes Percent Auto 8.8 % (3-14); Neutrophils Absolute Auto 5900 /uL (1500-7000); Neutrophils Percent Auto 78.6 % (50-75); Platelet Count 120 X10^3/uL (150-400); Red Blood Cell Count 3.36 X10^6/uL (4.5-5.9); Red Cell Distribution Width 14.5 % (11.6-14.8); White Blood Cell Count 7.6 X10^3/uL (4.5-11.0)
[2023-08-12 06:46] LABS: Alanine Aminotransferase 79 IU/L (<50); Albumin 4.7 g/dL (3.5-5.0); Albumin Globulin Ratio 1.4 (1.0-2.8); Alkaline Phosphatase 74 U/L (38-126); Aspartate Aminotransferase 129 IU/L (17-59); BUN Creatinine Ratio 16.8 (6-22); Bilirubin Total 2.2 mg/dL (0.2-1.3); Blood Urea Nitrogen 19 mg/dL (9-20); Carbon Dioxide 23 mmol/L (22-32); Chloride 95 mmol/L (98-107); Creatine Kinase 339 U/L (55-170); Estimated Glomerular Filt Rate > 60 mL/min (>60); Globulin 3.3 g/dL (1.7-4.1); Glucose 117 mg/dL (80-110); HEMOLYSIS < 15 (0-50); Lipase 1401 U/L (23-300); Potassium 4.1 mmol/L (3.4-5.1); Sodium 133 mmol/L (137-145)
[2023-08-12 06:49] LABS: Macrocytosis 2+
[2023-08-12 06:58] LABS: Troponin I 0.012 ng/mL (0.01-0.034)
--- NOTE | 2023-08-12 07:59 | DI.US.S_ITS ---
PROCEDURE: US ABDOMEN LIMITED INDICATIONS: RIGHT UPPER QUADRANT PAIN TECHNIQUE: Real-time focused scanning was performed of the abdomen, with image documentation. COMPARISON: [facility], CT, CT ABDOMEN PELVIS W CON, 08/12/2023, 7:03. FINDINGS: 14 cm. The deep field is not well seen due to increased echogenicity and bowel gas. No right upper quadrant focal tenderness. No wall thickening. No cholelithiasis. CBD is at the upper limit of normal at 6 mm. The distal portion is not well seen. Pancreas is not well seen. IMPRESSION: Limited exam due to markedly increased hepatic echogenicity and bowel gas. Increased hepatic echogenicity is most commonly due to steatosis. The gallbladder is mildly distended, but without stones, wall thickening, or sonographic Smith sign to suggest acute inflammation. Dictated by: Boni Hernandez M.D. on 08/12/2023 at 9:32 Approved by: Boni Hernandez M.D. on 08/12/2023 at 9:33
[2023-08-12 08:38] LABS: Creatine Kinase 360 U/L (55-170)
[2023-08-12 08:51] LABS: Troponin I 0.013 ng/mL (0.01-0.034)
== END 2023-08-12 10:02 | disposition home or self-care (01) ==
PROVIDERS: Emergency Medicine; Emergency Provider Emergency Medicine; PCP Internal Medicine
DX: R74.01 Elevation of levels of liver transaminase levels (principal); E80.6 Other disorders of bilirubin metabolism; R10.9 Unspecified abdominal pain; R07.9 Chest pain, unspecified; R11.0 Nausea
CPT/HCPCS: 36415; 71045; 74177; 76705; 80053; 82550; 83690; 84484; 85025; 93005; 96361; 96374; 99284; J2405; Q9967

== ENCOUNTER 2023-09-09 08:16 | Emergency (ER) | payer MEDICARE, BC, SELFPAY ==
[2023-09-09] VITALS (10 sets, daily range): BP systolic 131–159; BP diastolic 75–94; PULSE 66–77; RESP 17–22; TEMP 36.8; O2SAT 95–99; BMI 25.8
--- NOTE | 2023-09-09 08:22 | ED.GENADULT ---
HPI - General Adult General Chief complaint: Abdominal Pain Stated complaint: R/ ABD pain Time Seen by Provider: 09/09/23 08:21 History of Present Illness HPI narrative: 67-year-old male with history of BPH, osteoarthritis, constipation, asthma, hypertension, hyperlipidemia, CAD presents with abdominal pain. He states he recently got out of alcohol rehab and has been doing overall well but intermittently struggles with constipation. Yesterday he was constipated and straining to have a bowel movement. He tried 2 enemas which ultimately help. However during this, he developed sharp right lower quadrant pain that is moderate, not radiating, worse with movement. He has been passing gas normally since then. He would 1 episode of nausea and vomiting during this yesterday that resolved. No red or black in stool. No fevers or chills, shortness of breath, back or flank pain, dysuria, hematuria, urinary frequency, chest pain, lightheadedness or syncope, or any other changes. He took Tylenol yesterday. He is on Plavix. He has had 3 hernia surgeries. He is 11d sober. Per chart review, he also has history of stents and hiatal hernia. Related Data Home Medications Medication Instructions Recorded Confirmed albuterol sulfate 90 mcg/actuation inhalation 07/26/23 08/21/23 aerosol inhaler amlodipine 2.5 mg tablet 2.5 mg PO BID 07/26/23 08/21/23 bupropion HCl 300 mg 24 hr tablet, 300 mg PO DAILY 07/26/23 08/21/23 extended release clopidogrel 75 mg tablet 75 mg PO DAILY 07/26/23 08/21/23 docusate sodium 100 mg capsule 100 mg PO BID PRN 07/26/23 08/21/23 (Stool Softener) liver support 1 cap PO DAILY 07/26/23 08/21/23 lubiprostone 8 mcg capsule 8 mcg PO BID 07/26/23 08/21/23 magnesium oxide 400 mg PO DAILY 07/26/23 08/21/23 metoprolol succinate 25 mg 25 mg PO DAILY 07/26/23 08/21/23 tablet,extended release 24 hr rosuvastatin 40 mg tablet 40 mg PO DAILY 07/26/23 08/21/23 venlafaxine 75 mg capsule,extended 75 mg PO DAILY 01/17/24 02/12/24 release 24 hr Previous Rx's Medication Instructions Recorded fluticasone propionate 50 1 spray intranasal Q12H #16 grams 12/01/22 mcg/actuation nasal spray,suspension (Flonase Allergy Relief) ondansetron 4 mg disintegrating 4 mg PO Q6H PRN nausea and 08/12/23 tablet vomiting #20 tabs Allergies Allergy/AdvReac Type Severity Reaction Status Date / Time fentanyl AdvReac Severe Vomiting Verified 08/21/23 10:49 Review of Systems Review of Systems Narrative: Constitutional: no fever, no chills Eyes: no visual disturbance, no discharge Ears, Nose, Mouth, Throat: no rhinorrhea, no sore throat Cardiovascular: no chest pain, no palpitations Respiratory: no cough, no shortness of breath Gastrointestinal: + abdominal pain, + vomiting, no diarrhea Genitourinary: no dysuria, no hematuria Musculoskeletal: no back pain, no neck stiffness Skin: no rash, no wound Neurological: no focal weakness, no focal numbness Patient History Medical History 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 Chronic nausea Slow transit constipation Asthma, mild intermittent Mixed hyperlipidemia Essential hypertension Coronary artery disease Chronic constipation Social History marital status: details: , 2 siblings, brother , 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 independently: Yes Smoking Status: Never smoker Smoking Status: Never smoker alcohol intake frequency: 0-2 drinks per day Substance Use Type: does not use Exam Narrative Exam Narrative: Const: no acute distress, non toxic appearing; calm, conversant, pleasant Eyes: PERRLA, EOMI ENT: mucous membranes moist Neck: supple, non-tender Resp: no respiratory distress, clear to auscultation bilaterally Card: regular rate and rhythm, no murmurs Abd: mild RLQ tenderness without focality, negative Smith's sign, no other abdominal tenderness, no rigidity or rebound or guarding; no masses palpated Back: no T or L spine tenderness, no CVA 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): no testicular or penile masses, tenderness, erythema, lesions, discharge; no abnormal testicular lie Extrem: no deformities, no swelling bilateral lower extremities, 2+ distal pulses all extremities Neuro: ANOx4, start up specialist grossly intact, grossly intact sensation and strength all extremities Skin: no rash, warm and dry Initial Vital Signs Initial Vital Signs: Vital Signs Blood Pressure 151/79 H 09/09/23 08:22 Course Course Course Narrative: This presentation is most suggestive of constipation, muscular strain or sprain, hernia, intramuscular hematoma, in a patient who currently has nonsurgical abdomen and appears well, comfortable, afebrile, neurovascularly intact. I have considered a broad differential including but not limited to appendicitis, bowel obstruction, vascular dissection, nephrolithiasis, pyelonephritis, among others, however etiologies above such as sprain, strain, hernia seemed most likely at this time. We are giving fluids, Zofran, Percocet, and patient knows not to drive after this today. I am obtaining CBC, CMP, lipase, urinalysis, CT abdomen and pelvis with contrast and will reassess closely. Chemistry with borderline hyponatremia, renal function in similar range to prior, no LFT elevation. Lipase reassuring. CBC with 1 point worsening of anemia from 1 month ago, with no leukocytosis, with macrocytosis present chronically in setting of alcohol use, no thrombocytopenia. Urinalysis overall reassuring. Radiology review of imaging below, which I agree with on my independent review: FINDINGS: Lower thorax: The lung bases are clear. Heart size normal. No hiatal hernia. Dense coronary artery vascular calcification Liver: Normal in size and attenuation. No contour deformity present. Biliary system: No calcified cholelithiasis or pericholecystic inflammation. No intra or extrahepatic bile duct dilatation. Pancreas: Unremarkable without mass or inflammation evident. Spleen: Normal in size and density. Adrenals: Normal morphology and density. Reproductive system: Unremarkable as visualized. Urinary system: Normal renal size and attenuation. No renal calculi, hydronephrosis, or solid mass present. Urinary bladder unremarkable. Gastrointestinal system: There is moderate fecal debris in the right colon as well as right colonic wall thickening with pericolonic inflammatory change consistent with colitis. No abscess. Several diverticula arise from the sigmoid colon without evidence of diverticulitis. Appendix: Nonvisualized appendix, but no findings to suggest acute appendicitis. Peritoneal spaces: No mesenteric or retroperitoneal adenopathy. No free air. No free fluid. Vasculature: Aortic atherosclerotic vascular calcification noted without evidence of aneurysm. Abdominal wall: Abdominal wall intact without evidence of ventral or inguinal hernias. Musculoskeletal: Normal bone mineralization. No acute fractures. Left-sided total hip arthroplasty limits several images in the pelvis. IMPRESSION: 1. Mild right-sided colitis. Moderate fecal debris in the right colon with wall thickening and pericolonic inflammatory change. No abscess. Appendix is not separately identified, however, 2. Approved by: Onur Mckenzie M.D. on 09/09/2023 at 9:18 Note patient afebrile, currently with benign abdomen on reassessment, no blood in stool. I do not think this currently requires antibiotics but have recommended PCP follow up to be reassessed within 2-3 days and discuss GI referral. Patient comfortable with plan. He declines any medications for pain or nausea, stating he feels well and prefers to only take Tylenol. No other new concerns. Patient knows not to drive, drink alcohol, take sedating medications or do anything potentially dangerous today as he was given narcotics here. He verbalizes understanding of this. Copy of imaging reads given for follow up. Repeat exam and vital signs reassuring. Questions answered. Plan reviewed. Patient discharged in stable condition. Orders Ordered: ED Orders 09/09/23 08:31 Complete Blood Count AUTO DIFF Stat Comprehensive Metabolic Panel Stat Lipase Stat 09/09/23 08:32 CT abdomen pelvis w con Stat 09/09/23 08:59 Urinalysis and Microscopic Stat Discontinued Medications Sodium Chloride (Normal Saline 0.9%) 1,000 mls @ 1,000 mls/hr IV BOLUS PRN PRN Reason: Fluid replacement Last Infusion: 09/09/23 09:42 Dose: Infused Documented By: Admin: 09/09/23 09:04 Dose: 1,000 mls/hr Documented By: TARYN Ondansetron HCl (Ondansetron 4 Mg/2 Ml Inj) 4 mg IV Q4HR PRN PRN Reason: Nausea And Vomiting Last Admin: 09/09/23 09:04 Dose: 4 mg Documented By: TARYN Oxycodone/Acetaminophen (Oxycodone/Acetaminophen 5/325 Tablet) 1 tab PO NOW ONE Stop: 09/09/23 08:33 Last Admin: 09/09/23 09:04 Dose: 1 tab Documented By: TARYN Vital Signs Vital signs: Vital Signs - 8 hr 09/09/23 08:22 09/09/23 08:23 09/09/23 08:24 Temperature 98.2 F Pulse Rate 71 74 Respiratory Rate 18 Blood Pressure 151/79 H 151/79 H Pulse Oximetry 97 99 Oxygen Delivery Method Room Air 09/09/23 08:30 09/09/23 08:30 09/09/23 09:00 Temperature Pulse Rate 77 74 Respiratory Rate 22 Blood Pressure 131/77 Pulse Oximetry 96 95 Oxygen Delivery Method 09/09/23 09:00 09/09/23 09:14 09/09/23 09:14 Temperature Pulse Rate 66 Respiratory Rate 17 Blood Pressure 138/94 H 146/94 H Pulse Oximetry 97 Oxygen Delivery Method 09/09/23 09:30 09/09/23 09:30 09/09/23 09:57 Temperature Pulse Rate 66 67 Respiratory Rate 18 22 Blood Pressure 135/78 Pulse Oximetry 96 97 Oxygen Delivery Method 09/09/23 10:30 09/09/23 10:31 Temperature Pulse Rate 66 Respiratory Rate 20 Blood Pressure 159/75 H Pulse Oximetry Oxygen Delivery Method Medical Decision Making Lab Data 09/09/23 08:31 09/09/23 08:31 Labs: Lab Results 09/09/23 09/09/23 Range/Units 08:31 08:59 WBC 9.3 (4.5-11.0) X10^3/uL RBC 3.14 L (4.5-5.9) X10^6/uL Hgb 12.0 L (13.5-17.5) g/dL Hct 34.7 L (41-53) % MCV 110.4 H (80-100) fL MCH 38.2 H (26-34) PG MCHC 34.6 (30-36) % RDW 14.6 (11.6-14.8) % Plt Count 193 (150-400) X10^3/uL Neut % (Auto) 77.7 H (50-75) % Lymph % (Auto) 11.5 L (25-40) % [place] % (Auto) 9.7 (3-14) % Eos % (Auto) 0.2 L (2-4) % Baso % (Auto) 0.9 (0-2) % Neut # (Auto) 7200 H (3460-7014) /uL Lymph # (Auto) 1100 (3179-7461) /uL [place] # (Auto) 900 (0-900) /uL Eos # (Auto) 0 (0-450) /uL Baso # (Auto) 100 (0-100) /uL Nucleated RBCs Cancelled Hypersegmented Neuts Cancelled Hypogranular Neuts Cancelled Reactive Lymphocytes Cancelled Smudge Cells Cancelled Other Cell Type Cancelled Toxic Granulation Cancelled Toxic Vacuolation Cancelled Dohle Bodies Cancelled Angle Rods Cancelled WBC Morphology Comment Cancelled Platelet Estimate Cancelled Clumped Platelets Cancelled Plt Morphology Comment Cancelled RBC Morphology Cancelled Dimorphic RBCs Cancelled Polychromasia Cancelled Hypochromasia Cancelled Poikilocytosis Cancelled Basophilic Stippling Cancelled Anisocytosis Cancelled Microcytosis Cancelled Macrocytosis Cancelled Spherocytes Cancelled Pappenheimer Bodies Cancelled Sickle Cells Cancelled Target Cells Cancelled Tear Drop Cells Cancelled Ovalocytes Cancelled Stomatocytes Cancelled Helmet Cells Cancelled [place] Bodies Cancelled [place] Cancelled [place] Cells Cancelled Acanthocytes (Spur) Cancelled Rouleaux Cancelled Schistocytes Cancelled Sodium 134 L (137-145) mmol/L Potassium 4.3 (3.4-5.1) mmol/L Chloride 103 (98-107) mmol/L Carbon Dioxide 24 (22-32) mmol/L BUN 14 (9-20) mg/dL Creatinine 0.93 (0.66-1.25) mg/dL Estimated GFR > 60 (>60) mL/min BUN/Creatinine Ratio 15.1 (6-22) Glucose 89 (80-110) mg/dL Calcium 9.2 (8.4-10.2) mg/dL Total Bilirubin 0.9 (0.2-1.3) mg/dL AST 39 (17-59) IU/L ALT 32 (<50) IU/L Alkaline Phosphatase 53 (38-126) U/L Total Protein 7.5 (6.3-8.2) g/dL Albumin 4.2 (3.5-5.0) g/dL Globulin 3.3 (1.7-4.1) g/dL Albumin/Globulin Ratio 1.3 (1.0-2.8) Lipase 102 (23-300) U/L Urine Color Yellow Urine Appearance Clear Urine pH 7.0 (4.5-8.0) Ur Specific [place] 1.010 (1.000-1.035) Urine Protein Negative (Negative) Urine Glucose (UA) Negative (Negative) g/dL Urine Ketones Negative (NEGATIVE) Urine Occult Blood Negative (Negative) Urine Nitrate Negative (Negative) Urine Bilirubin Negative (NEGATIVE) Urine Urobilinogen 0.2 (0.2) E.U./dL Ur Leukocyte Esterase Negative (NEGATIVE) Urine RBC None seen (0-5/HPF) Urine WBC None seen (0-5/HPF) Ur Squamous Epith Cells None seen (0-5/HPF) Urine Bacteria None seen (None) Ur Culture Indicated? Cult not indicated Vol Urine Centrifuged 10ml (spun) Discharge Plan Departure Patient Disposition: Home Clinical Impression: Abdominal pain Instructions: DI for Colitis Activity Restrictions/Additional Instructions: It was a pleasure taking care of you today. It is important to fully read and understand the below. Please ask us if you have any questions. We think the most likely cause of your abdominal pain is colitis. As discussed, it is important to see your primary doctor within 3 days to be reassessed and discuss further treatment and Gastroenterology referral. No tests or assessments are perfect, and your condition could wallpaper remover steam time. If your symptoms change or worsen, it is very important you immediately seek medical care. If you have any new or worsening pain, bleeding, inability to stool, lightheadedness or passing out, shortness of breath, fever, vomiting, confusion, numbness, weakness, or anything else that concerns you, please immediately seek medical care. If you have been prescribed any medications: please read the drug package inserts on how to properly use the medication and any potential side effects. If you had labs (blood tests) or imaging (CT scan or x-rays) done during your visit: please follow up on the results of these with your primary care doctor, as discussed. In addition, please know the results we received today may be preliminary. Our usual practice is to follow up on tests within a few days of a patient's discharge from the Emergency Department and notify you of any changes. These may lead to changes to your treatment plan. However, the best way to obtain and interpret these test results is through your Primary Care Provider. If you need to update your contact information, please stop by the front desk supervisor and alert the Registration personnel before you leave the Emergency Department. Thank you for the opportunity to participate in your healthcare. We are always here and happy to see you in the future. --- PLEASE TAKE THE ATTACHED IMAGING TO YOUR DOCTORS: FINDINGS: Lower thorax: The lung bases are clear. Heart size normal. No hiatal hernia. Dense coronary artery vascular calcification Liver: Normal in size and attenuation. No contour deformity present. Biliary system: No calcified cholelithiasis or pericholecystic inflammation. No intra or extrahepatic bile duct dilatation. Pancreas: Unremarkable without mass or inflammation evident. Spleen: Normal in size and density. Adrenals: Normal morphology and density. Reproductive system: Unremarkable as visualized. Urinary system: Normal renal size and attenuation. No renal calculi, hydronephrosis, or solid mass present. Urinary bladder unremarkable. Gastrointestinal system: There is moderate fecal debris in the right colon as well as right colonic wall thickening with pericolonic inflammatory change consistent with colitis. No abscess. Several diverticula arise from the sigmoid colon without evidence of diverticulitis. Appendix: Nonvisualized appendix, but no findings to suggest acute appendicitis. Peritoneal spaces: No mesenteric or retroperitoneal adenopathy. No free air. No free fluid. Vasculature: Aortic atherosclerotic vascular calcification noted without evidence of aneurysm. Abdominal wall: Abdominal wall intact without evidence of ventral or inguinal hernias. Musculoskeletal: Normal bone mineralization. No acute fractures. Left-sided total hip arthroplasty limits several images in the pelvis. IMPRESSION: 1. Mild right-sided colitis. Moderate fecal debris in the right colon with wall thickening and pericolonic inflammatory change. No abscess. Appendix is not separately identified, however, 2. Approved by: Onur Mckenzie M.D. on 09/09/2023 at 9:18 Prescriptions: No Action fluticasone propionate [Flonase Allergy Relief] 50 mcg/actuation spray,suspension 1 spray intranasal Q12H Qty: 16 0RF Rx Instructions: administer into each nostril rosuvastatin 40 mg tablet 40 mg PO DAILY metoprolol succinate 25 mg tablet extended release 24 hr 25 mg PO DAILY clopidogrel 75 mg tablet 75 mg PO DAILY venlafaxine 75 mg capsule,extended release 24hr 75 mg PO DAILY amlodipine 2.5 mg tablet 2.5 mg PO BID bupropion HCl 300 mg tablet extended release 24 hr 300 mg PO DAILY albuterol sulfate 90 mcg/actuation HFA aerosol inhaler inhalation lubiprostone 8 mcg capsule 8 mcg PO BID magnesium oxide 400 mg magnesium tablet 400 mg PO DAILY liver support 1 cap PO DAILY docusate sodium [Stool Softener] 100 mg capsule 100 mg PO BID PRN ondansetron 4 mg tablet,disintegrating 4 mg PO Q6H PRN (Reason: nausea and vomiting) Qty: 20 0RF Referrals: Francisco Jade MD [Primary Care Provider] - Stand Alone Forms: Patient Portal/API
--- NOTE | 2023-09-09 08:32 | DI.CT.S_ITS ---
PROCEDURE: CT ABDOMEN PELVIS W CON INDICATIONS: RLQ pain after straining during constipation yesterday TECHNIQUE: After the administration of intravenous contrast, axial sections acquired from the lung bases to the pubic symphysis. Coronal and sagittal reformats were performed. For radiation dose reduction, the following was used: automated exposure control, adjustment of mA and/or kV according to patient size. COMPARISON: [facility], CT, CT ABDOMEN PELVIS W CON, 08/12/2023, 7:03. FINDINGS: Lower thorax: The lung bases are clear. Heart size normal. No hiatal hernia. Dense coronary artery vascular calcification Liver: Normal in size and attenuation. No contour deformity present. Biliary system: No calcified cholelithiasis or pericholecystic inflammation. No intra or extrahepatic bile duct dilatation. Pancreas: Unremarkable without mass or inflammation evident. Spleen: Normal in size and density. Adrenals: Normal morphology and density. Reproductive system: Unremarkable as visualized. Urinary system: Normal renal size and attenuation. No renal calculi, hydronephrosis, or solid mass present. Urinary bladder unremarkable. Gastrointestinal system: There is moderate fecal debris in the right colon as well as right colonic wall thickening with pericolonic inflammatory change consistent with colitis. No abscess. Several diverticula arise from the sigmoid colon without evidence of diverticulitis. Appendix: Nonvisualized appendix, but no findings to suggest acute appendicitis. Peritoneal spaces: No mesenteric or retroperitoneal adenopathy. No free air. No free fluid. Vasculature: Aortic atherosclerotic vascular calcification noted without evidence of aneurysm. Abdominal wall: Abdominal wall intact without evidence of ventral or inguinal hernias. Musculoskeletal: Normal bone mineralization. No acute fractures. Left-sided total hip arthroplasty limits several images in the pelvis. IMPRESSION: 1. Mild right-sided colitis. Moderate fecal debris in the right colon with wall thickening and pericolonic inflammatory change. No abscess. Appendix is not separately identified, however, 2. Approved by: Onur Mckenzie M.D. on 09/09/2023 at 9:18
[2023-09-09 08:43] LABS: Add Manual Diff / Slide Review NO; Basophils Absolute Auto 100 /uL (0-100); Basophils Percent Auto 0.9 % (0-2); Eosinophils Absolute Auto 0 /uL (0-450); Eosinophils Percent Auto 0.2 % (2-4); Hematocrit 34.7 % (41-53); Lymphocytes Absolute Auto 1100 /uL (1100-4500); Lymphocytes Percent Auto 11.5 % (25-40); Mean Corpuscular HGB Conc 34.6 % (30-36); Mean Corpuscular Hemoglobin 38.2 PG (26-34); Mean Corpuscular Volume 110.4 fL (80-100); Monocytes Absolute Auto 900 /uL (0-900); Monocytes Percent Auto 9.7 % (3-14); Neutrophils Absolute Auto 7200 /uL (1500-7000); Neutrophils Percent Auto 77.7 % (50-75); Platelet Count 193 X10^3/uL (150-400); Red Blood Cell Count 3.14 X10^6/uL (4.5-5.9); Red Cell Distribution Width 14.6 % (11.6-14.8); White Blood Cell Count 9.3 X10^3/uL (4.5-11.0)
[2023-09-09 08:52] LABS: Alanine Aminotransferase 32 IU/L (<50); Albumin 4.2 g/dL (3.5-5.0); Albumin Globulin Ratio 1.3 (1.0-2.8); Alkaline Phosphatase 53 U/L (38-126); Aspartate Aminotransferase 39 IU/L (17-59); BUN Creatinine Ratio 15.1 (6-22); Bilirubin Total 0.9 mg/dL (0.2-1.3); Blood Urea Nitrogen 14 mg/dL (9-20); Calcium 9.2 mg/dL (8.4-10.2); Carbon Dioxide 24 mmol/L (22-32); Chloride 103 mmol/L (98-107); Estimated Glomerular Filt Rate > 60 mL/min (>60); Globulin 3.3 g/dL (1.7-4.1); Glucose 89 mg/dL (80-110); HEMOLYSIS 33 (0-50); Lipase 102 U/L (23-300); Potassium 4.3 mmol/L (3.4-5.1); Sodium 134 mmol/L (137-145); Total Protein 7.5 g/dL (6.3-8.2)
[2023-09-09] MEDS: SODIUM CHLORIDE 0.9% 1,000 ML 1000 ML IV (09:04)
[2023-09-09] MEDS: OXYCODONE/ACETAMINOPHEN 5/325 TABLET 1 TAB PO (09:04)
[2023-09-09] MEDS: ONDANSETRON 4 MG/2 ML INJ IV (09:04)
[2023-09-09 09:12] LABS: Appearance Urine UA CLEAR; Bilirubin Urine UA NEGATIVE (NEGATIVE); Color Urine UA YELLOW; Glucose Urine UA NEGATIVE (Negative); Ketones Urine UA NEGATIVE (NEGATIVE); Leukocyte Esterase Urine UA NEGATIVE (NEGATIVE); Nitrite Urine UA NEGATIVE (Negative); Occult Blood Urine UA NEGATIVE (Negative); Protein Urine UA NEGATIVE (Negative); Urobilinogen Urine UA 0.2 E.U./dL (0.2)
[2023-09-09 09:24] LABS: Bacteria Urine None Seen; Culture Indicated Urine Cult Not Indicated; RBC Urine None Seen (0-5/HPF); Squamous Epithelial Cell Urine None Seen (0-5/HPF); Urine Volume 10mL (spun); WBC Urine None Seen (0-5/HPF)
== END 2023-09-09 10:37 | disposition home or self-care (01) ==
PROVIDERS: Emergency Provider Emergency Medicine; PCP Internal Medicine
DX: K52.9 Noninfective gastroenteritis and colitis, unspecified (principal); R10.9 Unspecified abdominal pain; Z79.899 Other long term (current) drug therapy; Z79.01 Long term (current) use of anticoagulants
CPT/HCPCS: 36415; 74177; 80053; 81001; 83690; 85025; 96361; 96374; 99284; J2405; Q9967

== ENCOUNTER 2023-12-31 07:46 | Emergency (ER) | payer MEDICARE, BC, SELFPAY ==
[2023-12-31] VITALS (11 sets, daily range): BP systolic 133–189; BP diastolic 83–109; PULSE 61–81; RESP 10–19; TEMP 36.8; O2SAT 97–100; BMI 23.6
--- NOTE | 2023-12-31 08:14 | ED.ABDPAIN ---
HPI - Abdominal Pain General Chief Complaint: Toxicology Problem Stated Complaint: Adverse medication reaction Time Seen by Provider: 12/31/23 08:03 Source: patient Mode of arrival: Ambulatory History of Present Illness HPI narrative: Patient 68-year-old male history of acute coronary artery disease with 10 stents takes clopidogrel, alcoholism presenting today with nausea vomiting. He reports that he has not been drinking alcohol for the last 2-3 days. He recently started naltrexone to help him stop drinking. He reports that he cut his dose in half from 50 mg to 25 mg and he is felt nauseous all day. He has not able to vomit secondary to a hiatal hernia surgery. He does have some abdominal cramping feels like he is still passing gas. Denies any sort of chest pain. Related Data Home Medications Medication Instructions Recorded Confirmed amlodipine 2.5 mg tablet 2.5 mg PO BID 07/26/23 11/27/23 bupropion HCl 300 mg 24 hr tablet, 300 mg PO DAILY 07/26/23 11/27/23 extended release clopidogrel 75 mg tablet 75 mg PO DAILY 07/26/23 11/27/23 docusate sodium 100 mg capsule 100 mg PO BID PRN 07/26/23 11/27/23 (Stool Softener) liver support 1 cap PO DAILY 07/26/23 11/27/23 lubiprostone 8 mcg capsule 8 mcg PO BID 07/26/23 11/27/23 magnesium oxide 400 mg PO DAILY 07/26/23 11/27/23 metoprolol succinate 25 mg 25 mg PO DAILY 07/26/23 11/27/23 tablet,extended release 24 hr rosuvastatin 40 mg tablet 40 mg PO DAILY 07/26/23 11/27/23 venlafaxine 75 mg capsule,extended 75 mg PO DAILY 07/26/23 11/27/23 release 24 hr mirtazapine 15 mg disintegrating 15 mg PO ONCE PM 09/12/23 11/27/23 tablet Previous Rx's Medication Instructions Recorded fluticasone propionate 50 1 spray intranasal Q12H #16 grams 12/01/22 mcg/actuation nasal spray,suspension (Flonase Allergy Relief) albuterol sulfate 90 mcg/actuation 1 puff inhalation Q4H PRN 10/10/23 aerosol inhaler shortness of breath or wheezing #8.5 grams gabapentin 300 mg capsule 600 mg (2 x 300 mg) PO BID #360 10/25/23 caps prednisone 10 mg tablet See Rx Instructions .Route 12/26/23 .COMPLEX #20 tabs ondansetron 4 mg disintegrating 4 mg PO Q6H PRN nausea and 12/29/23 tablet vomiting #20 tabs metoclopramide HCl 10 mg tablet 10 mg PO Q6H PRN nausea and 12/31/23 (Reglan) vomiting #10 tabs Allergies Allergy/AdvReac Type Severity Reaction Status Date / Time fentanyl AdvReac Severe Vomiting Verified 11/27/23 07:23 Patient History Medical History 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 HEENT: Head atraumatic,EOMI, pupils reactive, face symmetric, moist mucous membranes CARDIOVASCULAR: Regular rate and rhythm without murmurs, rubs or gallops. RESPIRATORY: Breath sounds equal bilaterally, no wheezes rales or rhonchi. ABDOMEN: Soft, nontender. Normoactive bowel sounds all 4 quadrants. No guarding or rebound. EXTREMITIES: Normal range of motion, no clubbing or edema. Neurovascularly intact NEUROLOGICAL: Alert and oriented x4.Normal gait and speech. No deficits obvious tremor SKIN: Warm, dry, no laceration, no petechiae, no rashes or lesions. Course Orders Ordered: ED Orders 12/31/23 07:55 Complete Blood Count AUTO DIFF Stat Comprehensive Metabolic Panel Stat Lipase Stat Troponin & CK Cardiac Panel Stat 12/31/23 08:14 CT abdomen pelvis w con Stat XR chest 1V Stat EKG-12 Lead Stat Discontinued Medications Acetaminophen (Acetaminophen 325 Mg Tablet) 650 mg PO NOW ONE Stop: 12/31/23 10:43 Sodium Chloride (Normal Saline 0.9%) 1,000 mls @ 1,000 mls/hr IV BOLUS ONE Stop: 12/31/23 09:13 Last Infusion: 12/31/23 09:26 Dose: Infused Documented By: Admin: 12/31/23 08:25 Dose: 1,000 mls/hr Documented By: CECELIA Ondansetron HCl (Ondansetron 4 Mg/2 Ml Inj) 4 mg IV NOW ONE Stop: 12/31/23 08:15 Last Admin: 12/31/23 08:25 Dose: 4 mg Documented By: RB Phenobarbital (Phenobarbital 65 Mg/Ml Vial) 130 mg IV NOW ONE Stop: 12/31/23 08:15 Last Admin: 12/31/23 08:25 Dose: 130 mg Documented By: CECELIA Vital Signs Vital signs: Vital Signs - 8 hr 12/31/23 07:50 12/31/23 08:00 12/31/23 08:00 Temperature Pulse Rate 70 61 Respiratory Rate 12 Blood Pressure 165/87 H Pulse Oximetry 98 98 Oxygen Delivery Method 12/31/23 08:01 12/31/23 08:30 12/31/23 08:30 Temperature 98.2 F Pulse Rate 62 70 Respiratory Rate 18 16 Blood Pressure 165/87 H 133/109 H Pulse Oximetry 97 99 Oxygen Delivery Method Room Air 12/31/23 09:00 12/31/23 09:00 12/31/23 09:07 Temperature Pulse Rate 61 Respiratory Rate 19 Blood Pressure 186/87 H 175/90 H Pulse Oximetry 99 Oxygen Delivery Method 12/31/23 09:07 12/31/23 09:28 12/31/23 09:28 Temperature Pulse Rate 62 61 Respiratory Rate 17 10 L Blood Pressure 189/85 H Pulse Oximetry 98 100 Oxygen Delivery Method 12/31/23 09:30 12/31/23 09:30 12/31/23 10:00 Temperature Pulse Rate 61 Respiratory Rate 10 L Blood Pressure 170/87 H 148/83 H Pulse Oximetry 98 Oxygen Delivery Method 12/31/23 10:00 12/31/23 10:33 12/31/23 10:35 Temperature Pulse Rate 61 81 64 Respiratory Rate 11 L 16 Blood Pressure Pulse Oximetry 98 98 Oxygen Delivery Method 12/31/23 10:35 Temperature Pulse Rate Respiratory Rate Blood Pressure 184/84 H Pulse Oximetry Oxygen Delivery Method MDM - Abdominal Pain Lab Data 12/31/23 07:55 12/31/23 07:55 Labs: Lab Results 12/31/23 Range/Units 07:55 WBC 6.3 (4.5-11.0) X10^3/uL RBC 3.91 L (4.5-5.9) X10^6/uL Hgb 14.1 (13.5-17.5) g/dL Hct 40.1 L (41-53) % MCV 102.4 H (80-100) fL MCH 35.9 H (26-34) PG MCHC 35.1 (30-36) % RDW 18.0 H (11.6-14.8) % Plt Count 177 (150-400) X10^3/uL Neut % (Auto) Not Reportable Lymph % (Auto) Not Reportable [place] % (Auto) Not Reportable Eos % (Auto) Not Reportable Baso % (Auto) Not Reportable Lymph # (Auto) Not Reportable [place] # (Auto) Not Reportable Baso # (Auto) Not Reportable Total Counted 100 Seg Neutrophils % 74.0 H (38-70) % Lymphocytes % (Manual) 18.0 L (25-45) % Monocytes % (Manual) 7.0 (2-11) % Eosinophils % (Manual) 1.0 L (2-4) % Neutrophils # (Manual) 4662 (5529-5578) /uL RBC Morphology See below Anisocytosis 1+ H Sodium 135 L (137-145) mmol/L Potassium 3.8 (3.4-5.1) mmol/L Chloride 98 (98-107) mmol/L Carbon Dioxide 26 (22-32) mmol/L BUN 12 (9-20) mg/dL Creatinine 1.08 (0.66-1.25) mg/dL Estimated GFR > 60 (>60) mL/min BUN/Creatinine Ratio 11.1 (6-22) Glucose 141 H (80-110) mg/dL Calcium 9.8 (8.4-10.2) mg/dL Total Bilirubin 1.6 H (0.2-1.3) mg/dL AST 81 H (17-59) IU/L ALT 58 H (<50) IU/L Alkaline Phosphatase 71 (38-126) U/L Total Creatine Kinase 126 (55-170) U/L Troponin I < 0.012 (0.01-0.034) ng/mL Total Protein 8.5 H (6.3-8.2) g/dL Albumin 5.0 (3.5-5.0) g/dL Globulin 3.5 (1.7-4.1) g/dL Albumin/Globulin Ratio 1.4 (1.0-2.8) Lipase 58 (23-300) U/L Point of care testing: Urine Dip Bedside Urine Glucose Negative Bedside Urine Bilirubin - Negative Bedside Urine Ketone - Negative Urine Specific [place] 1.010 Bedside Urine Occult Blood +/- Bedside Urine pH 8.0 Bedside Urine Protein + 30 Bedside Urine Urobilinogen - Negative Bedside Urine Nitrite - Negative Bedside Urine Leukocytes - Negative Esterase Imaging Data CT scan - abdomen/pelvis: Radiologist's Impression: PROCEDURE: CT ABDOMEN PELVIS W CON INDICATIONS: vomiting hx of hiatal hernia surgery TECHNIQUE: After the administration of intravenous contrast, axial sections acquired from the lung bases to the pubic symphysis. Coronal and sagittal reformats were performed. For radiation dose reduction, the following was used: automated exposure control, adjustment of mA and/or kV according to patient size. COMPARISON: [facility], CT, CT ABDOMEN PELVIS W CON, 09/09/2023, 9:03. FINDINGS: Image quality: Streak metal artifact from left hip arthroplasty limits evaluation of surrounding soft tissue. Lower Chest: No significant findings. ABDOMEN: Liver: No solid mass. Hepatic steatosis Gallbladder: No radiopaque gallstones or wall thickening. Biliary ducts: No biliary dilation. Pancreas: No ductal dilation. Spleen: Size is within normal limits. Adrenal Glands: No adrenal nodules. Kidneys and Ureters: No hydronephrosis. No solid mass. No complex renal cystic lesion which requires follow up. Stomach and Bowel: Small hiatal hernia. Normal colonic caliber, without significant wall thickening. A few scattered colonic diverticula without acute inflammation. Peritoneum: No abnormal intraperitoneal fluid. No free air. Ventral Wall: No significant ventral hernia. Abdominal Nodes: No retroperitoneal or mesenteric adenopathy by size criteria. Vessels: Aorta and inferior vena cava are normal in size. PELVIS: Pelvic Organs: Prostate is not well visualized. Bladder: No bladder wall thickening, accounting for underdistention. Pelvic Nodes: No enlarged lymph nodes. Miscellaneous: Small bilateral inguinal hernias with postsurgical changes. Bones: No aggressive osseous abnormality. Left hip total arthroplasty. Degenerative changes of the visualized spine without acute vertebral body compression fracture. IMPRESSION: Hepatic steatosis. Small hiatal hernia. No acute process to explain patient's symptoms. Approved by: Megan Awan M.D.,Ph.D. on 12/31/2023 at 9:01 Chest x-ray: Radiologist's Impression: PROCEDURE: XR CHEST 1V INDICATIONS: chest pain TECHNIQUE: One view of the chest was acquired. COMPARISON: [facility], CR, XR CHEST 1V, 08/12/2023, 6:18. [facility], CR, XR CHEST 1V, 08/06/2022, 8:06. FINDINGS: Surgical changes and devices: None. Lungs and pleura: Lungs are clear. No pleural effusions or pneumothorax. Mediastinum: Mediastinal contours appear normal. Heart size is normal. Bones and chest wall: No suspicious bony lesions. Overlying soft tissues appear unremarkable. IMPRESSION: No acute cardiopulmonary abnormality is seen. Approved by: Matt Hernadez M.D. on 12/31/2023 at 9:03 ECG Data Attestation: I personally reviewed and interpreted this ECG as follows: Prior ECG tracings: available for review Interpretation: Normal sinus rhythm rate 62 SC interval 150 QRS 96 QTC 434 T-wave inversion noted in lead 3 and AVF Q-wave also present in lead 3 and AVF similar to previous EKGs MDM Narrative Medical decision making narrative: Patient is 68-year-old male with known coronary artery disease and alcoholism presenting today with nausea. He thinks that he has had a reaction to the naltrexone which she has started taking for alcohol abuse. He according to records which have been reviewed also has chronic ongoing nausea but no vomiting. He reports that Zofran is not helping. Blood work has been reviewed: WBC 6.3 hemoglobin 14.1 hematocrit 40.1 MCV 102.4, platelets 177, sodium 135, potassium 3.8, chloride 98 carbon dioxide 28 BUN 12 creatinine 141, bilirubin 1.6, AST 81, ALT 58 they have been as high as bilirubin 2.2 AST 129 and ALT 79 troponin is negative lipase 58 Imaging has been reviewed CT shows hepatic steatosis small hiatal hernia but no acute process chest x-ray also shows no acute process EKG reivewed no ischemic changes no prolonged QTC Patient not tachycardic not having tremors just feeling nauseous. He is chronic nausea. Time I do not he is going through acute DTs or having significant reaction to the naltrexone. Discharge Plan Departure Patient Disposition: Home Clinical Impression: Alcohol withdrawal Instructions: DI for Delirium Tremens Activity Restrictions/Additional Instructions: *You have been diagnosed with alcohol withdrawal *What to do: At this time your liver enzymes are little bit elevated suspect that this is from alcohol. Your CT does show fatty liver but no other abnormality. Please follow-up with detox center in regards to medications *Continue to take medications as directed Reglan 10 mg every 6 hours for nausea or vomiting, do not combine with Zofran *Follow up with your primary care provider in 2-3 days or call [phone] *Return to ER if you should have increasing nausea abdominal pain chest or any new, worsening or concerning symptoms Prescriptions: New metoclopramide HCl [Reglan] 10 mg tablet 10 mg PO Q6H PRN (Reason: nausea and vomiting) Qty: 10 0RF No Action fluticasone propionate [Flonase Allergy Relief] 50 mcg/actuation spray,suspension 1 spray intranasal Q12H Qty: 16 0RF Rx Instructions: administer into each nostril albuterol sulfate 90 mcg/actuation HFA aerosol inhaler 1 puff inhalation Q4H PRN (Reason: shortness of breath or wheezing) Qty: 8.5 3RF gabapentin 300 mg capsule 600 mg PO BID Qty: 360 3RF prednisone 10 mg tablet See Rx Instructions .Route .COMPLEX Qty: 20 2RF Rx Instructions: 4 tablets daily for 2 days, then 3 tablets daily for 2 days, then 2 tablets daily for 2 days, then 1 tablet daily for 2 days then stop; ondansetron 4 mg tablet,disintegrating 4 mg PO Q6H PRN (Reason: nausea and vomiting) Qty: 20 3RF mirtazapine 15 mg tablet,disintegrating 15 mg PO ONCE PM rosuvastatin 40 mg tablet 40 mg PO DAILY metoprolol succinate 25 mg tablet extended release 24 hr 25 mg PO DAILY clopidogrel 75 mg tablet 75 mg PO DAILY venlafaxine 75 mg capsule,extended release 24hr 75 mg PO DAILY amlodipine 2.5 mg tablet 2.5 mg PO BID bupropion HCl 300 mg tablet extended release 24 hr 300 mg PO DAILY lubiprostone 8 mcg capsule 8 mcg PO BID magnesium oxide 400 mg magnesium tablet 400 mg PO DAILY liver support 1 cap PO DAILY docusate sodium [Stool Softener] 100 mg capsule 100 mg PO BID PRN Referrals: Francisco Jade MD [Primary Care Provider] - Stand Alone Forms: Patient Portal/API
--- NOTE | 2023-12-31 08:21 | EKG_ITS ---
[place] [id number] [address] [place] [id number] Test Date: 2023-12-31 Pat Name: Juaquin Sneed Department: [facility] Room: Gender: Male It Administrator: DONNA : 1955 Requested By: Order Number: [id number] Reading MD: Gamaliel Sheriff Measurements Intervals [place] Rate: 62 P: 54 AL: 150 QRS: -21 QRSD: 96 T: -6 QT: 428 QTc: 434 Interpretive Statements Normal sinus rhythm Inferior infarct , age undetermined Electronically Signed On 01-01-2024 16:35:22 PDT by Gamaliel Sheriff
[2023-12-31] MEDS: SODIUM CHLORIDE 0.9% 1,000 ML 1000 ML IV (08:25)
[2023-12-31] MEDS: ONDANSETRON 4 MG/2 ML INJ IV (08:25)
[2023-12-31] MEDS: PHENobarbital 65 MG/ML VIAL 130 MG IV (08:25)
[2023-12-31 08:49] LABS: Mean Corpuscular Hemoglobin 35.9 PG (26-34); Red Blood Cell Count 3.91 X10^6/uL (4.5-5.9); White Blood Cell Count 6.3 X10^3/uL (4.5-11.0)
[2023-12-31 08:55] LABS: Alanine Aminotransferase 58 IU/L (<50); Albumin Globulin Ratio 1.4 (1.0-2.8); Alkaline Phosphatase 71 U/L (38-126); Aspartate Aminotransferase 81 IU/L (17-59); BUN Creatinine Ratio 11.1 (6-22); Bilirubin Total 1.6 mg/dL (0.2-1.3); Blood Urea Nitrogen 12 mg/dL (9-20); Calcium 9.8 mg/dL (8.4-10.2); Carbon Dioxide 26 mmol/L (22-32); Chloride 98 mmol/L (98-107); Creatine Kinase 126 U/L (55-170); Estimated Glomerular Filt Rate > 60 mL/min (>60); Globulin 3.5 g/dL (1.7-4.1); Glucose 141 mg/dL (80-110); HEMOLYSIS < 15 (0-50); Lipase 58 U/L (23-300); Potassium 3.8 mmol/L (3.4-5.1); Sodium 135 mmol/L (137-145); Total Protein 8.5 g/dL (6.3-8.2)
[2023-12-31 09:07] LABS: Troponin I < 0.012 ng/mL (0.01-0.034)
[2023-12-31 09:17] LABS: Add Manual Diff / Slide Review YES; Hematocrit 40.1 % (41-53); Hemoglobin 14.1 g/dL (13.5-17.5); Mean Corpuscular HGB Conc 35.1 % (30-36); Mean Corpuscular Volume 102.4 fL (80-100); Platelet Count 177 X10^3/uL (150-400)
[2023-12-31 10:24] LABS: Anisocytosis 1+; Neutrophils Absolute Manual 4662 /uL (3000-5900); Total Cells Counted 100
== END 2023-12-31 10:56 | disposition home or self-care (01) ==
PROVIDERS: Emergency Provider Emergency Medicine; PCP Internal Medicine
DX: F10.939 Alcohol use, unspecified with withdrawal, unspecified (principal); R07.9 Chest pain, unspecified; Z95.5 Presence of coronary angioplasty implant and graft; Z79.899 Other long term (current) drug therapy
CPT/HCPCS: 36415; 71045; 74177; 80053; 81003; 82550; 83690; 84484; 85007; 85025; 93005; 96361; 96374; 96375; 99284; J2405; J2560; Q9967

== ENCOUNTER 2024-01-16 22:36 | Emergency (ER) | payer OTHER, MEDICARE, BC, SELFPAY ==
[2024-01-16 22:43] VITALS: BP 166/79; PULSE 61; RESP 18; TEMP 36.6; O2SAT 96; BMI 25.8
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
[2024-01-16] MEDS: ACETAMINOPHEN IV 1,000 MG/100 ML VIAL 400 MG IV (23:22)
[2024-01-16] MEDS: TET,DIPH,PERTUSS(ACELL),VAC/PF 0.5 ML SYRINGE IM (23:23)
[2024-01-16] MEDS: SODIUM CHLORIDE 0.9% 1,000 ML 1000 ML IV (23:23)
--- NOTE | 2024-01-16 23:26 | EKG_ITS ---
[place] [id number] [place] [id number] Test Date: 2024-01-16 Pat Name: Juaquin Sneed Department: [facility] Room: Gender: Male Office Admin: HAMMAD : 1955 Requested By: Order Number: [id number] Reading MD: Jefferson Bryant MD Measurements Intervals [place] Rate: 58 P: 57 MN: 160 QRS: 0 QRSD: 92 T: 5 QT: 424 QTc: 416 Interpretive Statements Sinus bradycardia Inferior infarct , age undetermined Electronically Signed On 01-17-2024 8:55:01 PDT by Jefferson Bryant MD
[2024-01-16 23:31] LABS: Add Manual Diff / Slide Review NO; Basophils Absolute Auto 0 /uL (0-100); Basophils Percent Auto 0.4 % (0-2); Eosinophils Absolute Auto 0 /uL (0-450); Eosinophils Percent Auto 0.2 % (2-4); Hematocrit 36.6 % (41-53); Hemoglobin 12.6 g/dL (13.5-17.5); Lymphocytes Absolute Auto 1400 /uL (1100-4500); Lymphocytes Percent Auto 13.9 % (25-40); Mean Corpuscular HGB Conc 34.4 % (30-36); Mean Corpuscular Hemoglobin 35.7 PG (26-34); Mean Corpuscular Volume 103.9 fL (80-100); Monocytes Absolute Auto 500 /uL (0-900); Monocytes Percent Auto 4.9 % (3-14); Neutrophils Absolute Auto 8000 /uL (1500-7000); Neutrophils Percent Auto 80.6 % (50-75); Platelet Count 231 X10^3/uL (150-400); Red Blood Cell Count 3.53 X10^6/uL (4.5-5.9); Red Cell Distribution Width 18.5 % (11.6-14.8)
[2024-01-16 23:40] LABS: INR 0.9 (0.9-1.3); Prothrombin Time 10.6 SECONDS (9.4-12.5)
[2024-01-16 23:42] LABS: PTT Partial Thromboplastin Tim 26 SECONDS (25.1-36.5)
[2024-01-16 23:45] LABS: Alanine Aminotransferase 107 IU/L (<50); Albumin 4.2 g/dL (3.5-5.0); Albumin Globulin Ratio 1.5 (1.0-2.8); Alkaline Phosphatase 63 U/L (38-126); Aspartate Aminotransferase 112 IU/L (17-59); BUN Creatinine Ratio 13.5 (6-22); Bilirubin Total 0.6 mg/dL (0.2-1.3); Blood Urea Nitrogen 13 mg/dL (9-20); Calcium 8.4 mg/dL (8.4-10.2); Carbon Dioxide 29 mmol/L (22-32); Chloride 107 mmol/L (98-107); Estimated Glomerular Filt Rate > 60 mL/min (>60); Ethanol (ETOH) 224 mg/dL; Globulin 2.8 g/dL (1.7-4.1); Glucose 128 mg/dL (80-110); HEMOLYSIS 21 (0-50); Lactate (Lactic Acid) 1.2 mmol/L (0.7-2.1); Lipase 83 U/L (23-300); Potassium 4.5 mmol/L (3.4-5.1); Sodium 142 mmol/L (137-145)
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
[2024-01-17 01:41] LABS: Ur Creatinine Normal (Normal); Ur Specific Gravity Normal (Normal); Urine pH Normal (Normal)
[2024-01-17 01:42] LABS: UR Morphine/Opiate cutoff 300 Negative (Negative); Urine Amphetamines Negative (Negative); Urine Barbiturates Negative (Negative); Urine Benzodiazepines Negative (Negative); Urine Cocaine Negative (Negative); Urine MDMA Negative (Negative); Urine Methadone Negative (Negative); Urine Methamphetamines Negative (Negative); Urine Oxycodone Negative (Negative); Urine Phencyclidine Negative (Negative); Urine Tetrahydrocannabinol Negative (Negative); Urine Tricyclic Antidepressant Negative (Negative)
[2024-01-17 01:54] VITALS: BP 158/74; PULSE 78; RESP 16; O2SAT 100
--- NOTE | 2024-01-17 17:43 | CM.SWNOTE ---
Addendum entered by Kathy Trevino 01/19/24 14:41: ED follow up Note [employer] sees that patient checked in the ED. [employer]ER [employer]SE MECH[employer]IC enters room and provides patient with [facility] resources. EDUARDO Unger Original Note: ED [employer] Follow Up Note [employer]IC receives consult from ED provider due to patient's concern for outpatient [facility] treatment. [employer] MECH[employer]IC calls patient and leaves VM requesting return call. EDUARDO Unger
== END 2024-01-17 01:56 | disposition home or self-care (01) ==
PROVIDERS: Emergency Provider Emergency Medicine; PCP Internal Medicine
DX: S80.812A Abrasion, left lower leg, initial encounter (principal); S80.811A Abrasion, right lower leg, initial encounter; M54.50 Low back pain, unspecified; R51.9 Headache, unspecified; V89.2XXA Person injured in unspecified motor-vehicle accident, traffic, initial encounter; F10.129 Alcohol abuse with intoxication, unspecified; Y90.7 Blood alcohol level of 200-239 mg/100 ml; Z79.01 Long term (current) use of anticoagulants; Z23 Encounter for immunization
CPT/HCPCS: 36415; 71045; 72170; 80053; 80305; 80320; 83605; 83690; 85025; 85610; 85730; 86850; 86900; 86901; 90471; 93005; 96361; 96365; 99285; 90715; J0136

== ENCOUNTER 2024-01-19 11:51 | Emergency (ER) | payer OTHER, SELFPAY ==
[2024-01-19 13:25] VITALS: BP 114/75; PULSE 83; RESP 16; TEMP 36.9; O2SAT 97; BMI 25.8
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
== END 2024-01-19 15:09 | disposition home or self-care (01) ==
PROVIDERS: Emergency Provider Registered Nurse; PCP Internal Medicine
DX: S80.811A Abrasion, right lower leg, initial encounter (principal); V89.2XXA Person injured in unspecified motor-vehicle accident, traffic, initial encounter
CPT/HCPCS: 73552; 73590; 99281; 99283

== ENCOUNTER → 2024-01-23 14:46 | Outpatient (CLI) | payer OTHER, SELFPAY ==
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
== END ==
PROVIDERS: PCP Internal Medicine; Referring Provider Internal Medicine; Visit Provider Internal Medicine
DX: M47.816 Spondylosis without myelopathy or radiculopathy, lumbar region (principal); M43.8X6 Other specified deforming dorsopathies, lumbar region; R29.898 Other symptoms and signs involving the musculoskeletal system; Z96.641 Presence of right artificial hip joint
CPT/HCPCS: 72100

== ENCOUNTER → 2024-01-24 08:48 | Outpatient (CLI) | payer OTHER, SELFPAY ==
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
== END ==
LOC: CT 08:49
PROVIDERS: PCP Internal Medicine; Referring Provider Internal Medicine; Visit Provider Internal Medicine
DX: R29.898 Other symptoms and signs involving the musculoskeletal system (principal)
CPT/HCPCS: 70450

== ENCOUNTER 2024-01-26 11:55 | Emergency (ER) | payer OTHER, SELFPAY ==
[2024-01-26 11:58] VITALS: BP 136/90; PULSE 66; RESP 15; TEMP 36.1; O2SAT 94; BMI 25.8
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
== END 2024-01-26 12:31 | disposition home or self-care (01) ==
PROVIDERS: Emergency Provider Emergency Medicine; PCP Internal Medicine
DX: M79.605 Pain in left leg (principal); M79.604 Pain in right leg; V89.2XXD Person injured in unspecified motor-vehicle accident, traffic, subsequent encounter
CPT/HCPCS: 99281

== ENCOUNTER → 2024-02-01 19:13 | Outpatient (CLI) | payer MEDICARE, BC, OTHER, SELFPAY ==
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
== END ==
PROVIDERS: PCP Internal Medicine; Referring Provider Internal Medicine; Visit Provider Internal Medicine
DX: M51.36 Other intervertebral disc degeneration, lumbar region; M51.37 Other intervertebral disc degeneration, lumbosacral region; M43.8X6 Other specified deforming dorsopathies, lumbar region; M48.061 Spinal stenosis, lumbar region without neurogenic claudication; M48.07 Spinal stenosis, lumbosacral region; M47.816 Spondylosis without myelopathy or radiculopathy, lumbar region; M47.817 Spondylosis without myelopathy or radiculopathy, lumbosacral region; S12.390A Other displaced fracture of fourth cervical vertebra, initial encounter for closed fracture; R53.1 Weakness
CPT/HCPCS: 72148

== ENCOUNTER → 2024-02-07 15:46 | Outpatient (CLI) | payer MEDICARE, OTHER, SELFPAY ==
--- NOTE | 2024-02-07 15:48 | DI.CT.S_ITS ---
PROCEDURE: CT LUMBAR SPINE WO CON INDICATIONS: SPINAL STENOSIS LUMBAR REGION TECHNIQUE: Noncontrast 0.8 mm thick sections acquired from the T12 level to the sacrum. Sagittal and coronal reformats were constructed. For radiation dose reduction, the following was used: automated exposure control. COMPARISON: [facility], MR, MR LUMBAR SPINE WO CON, 02/01/2024, 19:41. [facility], CT, CT ABDOMEN PELVIS W CON, 12/31/2023, 9:24. FINDINGS: Image quality: There is artifact associated with the metallic hardware. Bones: There is a significant fracture of the L4 level, with study 5% loss of height anteriorly. There is 5 mm posterior displacement fracture fragments. There is associated severe central canal narrowing posterior to the L4 vertebral body. Moderate to severe bilateral neural foraminal narrowing can be seen at the L4-L5 level. Multiple levels of degenerative change are seen elsewhere, which are better demonstrated on the recent prior MRI. There is normal bony alignment. No suspicious lytic or blastic bony lesions. No pars defects. Left hip arthroplasty hardware is seen, with associated streak artifact. Soft tissues: No retroperitoneal masses or hematomas. Visualized aorta is normal in caliber. Atherosclerotic calcification is noted. IMPRESSION: Subacute appearing L4 fracture, with posterior displacement of fracture fragments and severe central canal narrowing posterior to the L4 vertebral body. Dictated by: Chapito Dixon M.D. on 02/08/2024 at 9:28 Approved by: Chapito Dixon M.D. on 02/08/2024 at 9:32
== END ==
PROVIDERS: PCP Internal Medicine; Referring Provider Orthopaedic Surgery Orthopaedic Surgery of the Spine; Visit Provider Orthopaedic Surgery Orthopaedic Surgery of the Spine
DX: M48.062 Spinal stenosis, lumbar region with neurogenic claudication (principal); M48.56XA Collapsed vertebra, not elsewhere classified, lumbar region, initial encounter for fracture
CPT/HCPCS: 72131

== ENCOUNTER 2024-02-09 20:28 | Inpatient (IN) | payer MEDICARE, OTHER, SELFPAY ==
[2024-02-09] VITALS (9 sets, daily range): BP systolic 128–175; BP diastolic 76–85; PULSE 62–86; RESP 18; TEMP 35.8; O2SAT 89–99; BMI 24.3
--- NOTE | 2024-02-09 20:51 | ED_ITS ---
HPI - General Adult General Chief complaint: Toxicology Problem Stated complaint: altered, anxiety, etoh Time Seen by Provider: 02/09/24 20:35 Source: EMS Mode of arrival: EMS History of Present Illness HPI narrative: 68-year-old male with history of alcohol use disorder in remission, hypertension, lumbar compression fracture (scheduled for surgery 02/11) presents by EMS from home for abnormal mentation and agitation. History obtained from at bedside as patient was unable to provide any meaningful history. states that she left to run errands and when she came back the patient was acting very abnormally. She did not know if he has been drinking again or not. She states that the last time she knows for sure he had a drink of alcohol was 3 weeks ago. Patient has been on baclofen for back spasms. EMS reports that EN route patient was very agitated and required 2 mg of Versed for sedation. Related Data Home Medications Medication Instructions Recorded Confirmed amlodipine 2.5 mg tablet 2.5 mg PO BID 07/26/23 01/29/24 clopidogrel 75 mg tablet 75 mg PO DAILY 07/26/23 01/29/24 docusate sodium 100 mg capsule 100 mg PO BID PRN 07/26/23 01/29/24 (Stool Softener) lubiprostone 8 mcg capsule 8 mcg PO BID 07/26/23 01/29/24 magnesium oxide 400 mg PO DAILY 07/26/23 01/29/24 metoprolol succinate 25 mg 25 mg PO DAILY 07/26/23 01/29/24 tablet,extended release 24 hr rosuvastatin 40 mg tablet 40 mg PO DAILY 07/26/23 01/29/24 venlafaxine 75 mg capsule,extended 75 mg PO DAILY 07/26/23 01/29/24 release 24 hr mirtazapine 15 mg disintegrating 15 mg PO ONCE PM 09/12/23 01/29/24 tablet melatonin 12 mg tablet 12 mg PO DAILY 01/29/24 01/29/24 Previous Rx's Medication Instructions Recorded fluticasone propionate 50 1 spray intranasal Q12H #16 grams 12/01/22 mcg/actuation nasal spray,suspension (Flonase Allergy Relief) albuterol sulfate 90 mcg/actuation 1 puff inhalation Q4H PRN 10/10/23 aerosol inhaler shortness of breath or wheezing #8.5 grams gabapentin 300 mg capsule 600 mg (2 x 300 mg) PO BID #360 10/25/23 caps ondansetron 4 mg disintegrating 4 mg PO Q6H PRN nausea and 12/29/23 tablet vomiting #20 tabs metoclopramide HCl 10 mg tablet 10 mg PO Q6H PRN nausea and 12/31/23 (Reglan) vomiting #10 tabs bupropion HCl 300 mg 24 hr tablet, 300 mg PO DAILY #90 tabs 01/04/24 extended release baclofen 5 mg tablet 5 mg PO TID PRN muscle spasm #40 01/23/24 tabs meloxicam 15 mg tablet 15 mg PO DAILY #30 tabs 01/29/24 tramadol 50 mg tablet 50 mg PO Q8H PRN pain #30 tabs 01/31/24 Allergies Allergy/AdvReac Type Severity Reaction Status Date / Time fentanyl AdvReac Severe Vomiting Verified 01/29/24 11:34 Patient History Medical History (Updated 02/10/24 @ 05:08 by Casey Barron MD) Depression Alcoholism History of myocardial infarction (~2014) ETOH abuse Compression fracture of L4 vertebra 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 Chronic nausea Slow transit constipation Asthma, mild intermittent Mixed hyperlipidemia Essential hypertension Coronary artery disease Chronic constipation Surgical History History of total left hip replacement History of repair of hiatal hernia (~09/2022) Hx of heart artery stent Social History marital status: details: , 2 siblings, brother , 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: spouse lives independently: Yes Smoking Status: Never smoker alcohol intake: current Smoking Status: Never smoker alcohol intake frequency: 0-2 drinks per day Substance Use Type: does not use Exam Initial Vital Signs Initial Vital Signs: Vital Signs Pulse Rate 74 02/09/24 20:30 Blood Pressure 175/85 H 02/09/24 20:30 Pulse Oximetry 89 L 02/09/24 20:30 Oxygen Delivery Method Room Air 02/09/24 20:30 Const: Awake, eyes closed, agitated, diaphoretic, not following commands Cardiac: regular rate, regular rhythm RESP: unlabored, clear bilaterally, no wheezing GI: Soft, nontender, nondistended MSK: Atraumatic, full range of motion, pulses equal Skin: Warm, intact, no rashes Neuro: AO x0, not following commands, grabbing at legs and groin and rocking back and forth Course Orders Ordered: ED Orders 02/09/24 20:45 CBC Auto Diff [Complete Blood Count AUTO DIFF] Stat CMP [Comprehensive Metabolic Panel] Stat Ethanol (ETOH) Stat 02/09/24 20:52 CT head/brain wo con Stat EKG-12 Lead Stat 02/09/24 20:54 Troponin & CK Cardiac Panel Stat 02/09/24 22:54 Urine Drug Screen, Rapid Stat 02/09/24 23:06 Ammonia (NH3) Stat 02/10/24 00:10 Chest [XR chest 1V] Stat Acetaminophen (Acetaminophen 325 Mg Tablet) 650 mg PO Q6H PRN PRN Reason: Fever/Mild Pain (1-3) Albuterol (Albuterol 2.5 Mg/3 Ml Neb (Adult)) 2.5 mg INH [id number] PRN PRN Reason: Shortness Of Breath Clopidogrel Bisulfate (Clopidogrel 75 Mg Tablet) 75 mg PO DAILY JOSEY Gabapentin (Gabapentin 300 Mg Capsule) 600 mg PO BID JOSEY Hydromorphone HCl (Hydromorphone 0.5 Mg Inj) 0.5 mg IV Q2H PRN PRN Reason: Pain, Moderate (4-6) Last Admin: 02/10/24 04:08 Dose: 0.5 mg Documented By: CC dexmedeTOMIDine in 0.9 % NaCL (Precedex) 400 mcg in 100 mls @ 3.856 mls/hr IV TITRATE JOSEY; Protocol Last Titration: 02/10/24 04:53 Dose: 0 mcg/kg/hr, 0 mls/hr Documented By: Titration: 02/10/24 03:31 Dose: 0.2 mcg/kg/hr, 3.856 mls/hr Documented By: Titration: 02/10/24 03:05 Dose: 0.3 mcg/kg/hr, 5.783 mls/hr Documented By: Titration: 02/10/24 02:57 Dose: 0.4 mcg/kg/hr, 7.711 mls/hr Documented By: Titration: 02/10/24 02:35 Dose: 0.2 mcg/kg/hr, 3.856 mls/hr Documented By: Titration: 02/10/24 02:20 Dose: 0 mcg/kg/hr, 0 mls/hr Documented By: Titration: 02/10/24 00:46 Dose: 0.3 mcg/kg/hr, 5.783 mls/hr Documented By: Titration: 02/10/24 00:18 Dose: 0.4 mcg/kg/hr, 7.711 mls/hr Documented By: Admin: 02/09/24 23:25 Dose: 0.5 mcg/kg/hr, 9.639 mls/hr Documented By: CHAZ Lactated Ringer's (Lactated Ringers) 1,000 mls @ 100 mls/hr IV CONT JOSEY Last Admin: 02/10/24 03:00 Dose: 100 mls/hr Documented By: LEBRON Metoclopramide HCl (Metoclopramide Hcl 5 Mg Tablet) 10 mg PO Q6H PRN PRN Reason: Nausea And Vomiting Metoprolol Succinate (Metoprolol Er 25 Mg Tablet) 25 mg PO DAILY [facility] Naloxone HCl (Naloxone 0.4 Mg/Ml Vial) 0.2 mg IV Q2MIN PRN PRN Reason: Opiate Reversal Ondansetron HCl (Ondansetron 4 Mg Odt) 4 mg PO Q6H PRN PRN Reason: nausea and vomiting Pantoprazole Sodium (Pantoprazole 40 Mg Vial) 40 mg IV DAILY JOSEY Tramadol HCl (Tramadol 50 Mg Tablet) 50 mg PO Q8H PRN PRN Reason: pain Discontinued Medications Haloperidol (Haloperidol 5 Mg/Ml Vial) 5 mg IV NOW ONE Stop: 02/09/24 23:12 Last Admin: 02/09/24 23:20 Dose: 5 mg Documented By: CHAZ Lidocaine HCl (Lidocaine 2% (Glydo) 6 Ml Gel) 6 ml TOP NOW ONE Stop: 02/09/24 22:45 Last Admin: 02/09/24 23:32 Dose: Not Given Documented By: CHAZ Midazolam HCl (Midazolam 5 Mg/Ml Vial) 5 mg IV NOW ONE Stop: 02/09/24 21:04 Last Admin: 02/09/24 21:39 Dose: 5 mg Documented By: CHAZ Midazolam HCl (Midazolam 5 Mg/Ml Vial) 5 mg IM NOW ONE Stop: 02/09/24 23:24 Last Admin: 02/10/24 00:14 Dose: Not Given Documented By: MAGNUS Non-Formulary Medication (Metoclopramide Hcl [Reglan]) 10 mg PO Q6H PRN PRN Reason: nausea and vomiting Ondansetron HCl (Ondansetron 4 Mg/2 Ml Inj) 4 mg IV NOW ONE Stop: 02/09/24 21:36 Last Admin: 02/09/24 21:39 Dose: 4 mg Documented By: CHAZ Vital Signs Vital signs: Vital Signs - 8 hr 02/09/24 21:30 02/09/24 22:00 02/09/24 22:30 Pulse Rate 62 62 Respiratory Rate Blood Pressure 135/81 128/76 142/80 H Pulse Oximetry 99 99 Oxygen Delivery Method Nasal Cannula Nasal Cannula Oxygen Flow Rate 1 1 02/09/24 23:00 02/09/24 23:30 02/10/24 00:00 Pulse Rate 65 69 61 Respiratory Rate 8 L Blood Pressure 150/76 H 112/72 Pulse Oximetry 97 96 Oxygen Delivery Method Nasal Cannula Room Air Oxygen Flow Rate 1 02/10/24 00:30 Pulse Rate 58 L Respiratory Rate 8 L Blood Pressure 104/66 Pulse Oximetry 96 Oxygen Delivery Method Oxygen Flow Rate Medical Decision Making Differential Diagnosis Differential Diagnosis: Alcohol withdrawal, alcohol intoxication, subarachnoid hemorrhage Lab Data 02/09/24 20:45 02/09/24 20:45 Labs: Lab Results 02/09/24 02/09/24 02/09/24 Range/Units 20:45 20:54 22:54 WBC 5.7 (4.5-11.0) X10^3/uL RBC 3.61 L (4.5-5.9) X10^6/uL Hgb 13.1 L (13.5-17.5) g/dL Hct 37.6 L (41-53) % MCV 104.2 H (80-100) fL MCH 36.4 H (26-34) PG MCHC 34.9 (30-36) % RDW 16.0 H (11.6-14.8) % Plt Count 284 (150-400) X10^3/uL Neut % (Auto) 63.9 (50-75) % Lymph % (Auto) 23.2 L (25-40) % Tucker % (Auto) 11.0 (3-14) % Eos % (Auto) 1.3 L (2-4) % Baso % (Auto) 0.6 (0-2) % Neut # (Auto) 3700 (7528-1906) /uL Lymph # (Auto) 1300 (5660-2795) /uL Tucker # (Auto) 600 (0-900) /uL Eos # (Auto) 100 (0-450) /uL Baso # (Auto) 0 (0-100) /uL Sodium 135 L (137-145) mmol/L Potassium 4.3 (3.4-5.1) mmol/L Chloride 105 (98-107) mmol/L Carbon Dioxide 17 L (22-32) mmol/L BUN 19 (9-20) mg/dL Creatinine 1.04 (0.66-1.25) mg/dL Estimated GFR > 60 (>60) mL/min BUN/Creatinine Ratio 18.3 (6-22) Glucose 129 H (80-110) mg/dL Calcium 9.7 (8.4-10.2) mg/dL Total Bilirubin 0.6 (0.2-1.3) mg/dL AST 27 (17-59) IU/L ALT 23 (<50) IU/L Alkaline Phosphatase 105 (38-126) U/L Ammonia (9-30) umol/L Total Creatine Kinase 143 (55-170) U/L Troponin I < 0.012 (0.01-0.034) ng/mL Total Protein 7.4 (6.3-8.2) g/dL Albumin 4.6 (3.5-5.0) g/dL Globulin 2.8 (1.7-4.1) g/dL Albumin/Globulin Ratio 1.6 (1.0-2.8) U Opiates 300ng/mL cut Negative (Negative) Ur Oxycodone Screen Negative (Negative) Urine Methadone Screen Negative (Negative) Ur Barbiturates Screen Negative (Negative) U Tricyclic Antidepress Negative (Negative) Ur Phencyclidine Scrn Negative (Negative) Ur Amphetamines Screen Negative (Negative) U Methamphetamines Scrn Negative (Negative) Ur MDMA Scrn (Ecstasy) Negative (Negative) U Benzodiazepines Scrn Negative (Negative) Urine Cocaine Screen Negative (Negative) U Marijuana (THC) Screen Negative (Negative) Urine pH Normal (Normal) Urine Specific [place] Normal (Normal) Ethyl Alcohol < 10 ( - 10) mg/dL Ur Creatinine Normal (Normal) 02/09/24 Range/Units 23:06 WBC (4.5-11.0) X10^3/uL RBC (4.5-5.9) X10^6/uL Hgb (13.5-17.5) g/dL Hct (41-53) % MCV (80-100) fL MCH (26-34) PG MCHC (30-36) % RDW (11.6-14.8) % Plt Count (150-400) X10^3/uL Neut % (Auto) (50-75) % Lymph % (Auto) (25-40) % Tucker % (Auto) (3-14) % Eos % (Auto) (2-4) % Baso % (Auto) (0-2) % Neut # (Auto) (3810-4806) /uL Lymph # (Auto) (9217-7664) /uL Tucker # (Auto) (0-900) /uL Eos # (Auto) (0-450) /uL Baso # (Auto) (0-100) /uL Sodium (137-145) mmol/L Potassium (3.4-5.1) mmol/L Chloride (98-107) mmol/L Carbon Dioxide (22-32) mmol/L BUN (9-20) mg/dL Creatinine (0.66-1.25) mg/dL Estimated GFR (>60) mL/min BUN/Creatinine Ratio (6-22) Glucose (80-110) mg/dL Calcium (8.4-10.2) mg/dL Total Bilirubin (0.2-1.3) mg/dL AST (17-59) IU/L ALT (<50) IU/L Alkaline Phosphatase (38-126) U/L Ammonia < 9 L (9-30) umol/L Total Creatine Kinase (55-170) U/L Troponin I (0.01-0.034) ng/mL Total Protein (6.3-8.2) g/dL Albumin (3.5-5.0) g/dL Globulin (1.7-4.1) g/dL Albumin/Globulin Ratio (1.0-2.8) U Opiates 300ng/mL cut (Negative) Ur Oxycodone Screen (Negative) Urine Methadone Screen (Negative) Ur Barbiturates Screen (Negative) U Tricyclic Antidepress (Negative) Ur Phencyclidine Scrn (Negative) Ur Amphetamines Screen (Negative) U Methamphetamines Scrn (Negative) Ur MDMA Scrn (Ecstasy) (Negative) U Benzodiazepines Scrn (Negative) Urine Cocaine Screen (Negative) U Marijuana (THC) Screen (Negative) Urine pH (Normal) Urine Specific [place] (Normal) Ethyl Alcohol ( - 10) mg/dL Ur Creatinine (Normal) Urine Dip Bedside Urine Glucose 100 mg/dl Bedside Urine Bilirubin - Negative Bedside Urine Ketone - Negative Urine Specific [place] 1.020 Bedside Urine Occult Blood - Negative Bedside Urine pH 6.0 Bedside Urine Protein - Negative Bedside Urine Urobilinogen - Negative Bedside Urine Nitrite - Negative Bedside Urine Leukocytes - Negative Esterase Point of care testing: Urine Dip Bedside Urine Glucose 100 mg/dl Bedside Urine Bilirubin - Negative Bedside Urine Ketone - Negative Urine Specific [place] 1.020 Bedside Urine Occult Blood - Negative Bedside Urine pH 6.0 Bedside Urine Protein - Negative Bedside Urine Urobilinogen - Negative Bedside Urine Nitrite - Negative Bedside Urine Leukocytes - Negative Esterase Imaging Data CT scan - head: Radiologist's Impression: PROCEDURE: CT HEAD/BRAIN WO CON INDICATIONS: AMS TECHNIQUE: Noncontrast 4.5 mm thick angled axial sections acquired from the foramen magnum to the vertex, with coronal and sagittal reformats. For radiation dose reduction, the following was used: automated exposure control, adjustment of mA and/or kV according to patient size. COMPARISON: [facility], CT, CT HEAD/BRAIN WO CON, 01/24/2024, 8:51. FINDINGS: Image quality: Diagnostic CSF spaces: Basal cisterns are patent. Lateral ventricles are symmetric. Volume: Vascular calcifications. Periventricular white matter disease is commonly seen with chronic microangiopathy. Volume loss is present. These findings are moderate Brain: No gross loss of black-white differentiation. No acute hemorrhage Craniofacial structures: No significant paranasal sinus opacity IMPRESSION: No acute intracranial abnormality. If there is high concern for parenchymal pathology, consider further evaluation with MRI. Dictated by: Boni Hernandez M.D. on 02/09/2024 at 21:52 Approved by: Boni Hernandez M.D. on 02/09/2024 at 21:53 MDM Narrative Medical decision making narrative: Patient agitated, altered, not following commands. states that patient acting more or less normally this morning. No focal deficits on exam, patient appears to be globally encephalopathic. Given Versed for anxiolysis. Laboratory work so far fairly unremarkable, WBC count 5.7, hemoglobin 13.1, platelets 284, sodium 135, potassium 4.3, creatinine 1.04, troponin undetectable, ammonia less than 9, alcohol less than 10, drug screen negative. CT brain negative for acute findings. While attempting to obtain urine specimen patient became extremely agitated, clutching at his leg and screaming ?my arm, my arm? over and over again. Patient required initiation of Precedex drip and placement of restraints in order to prevent harm to self and removal of medical equipment. Patient adequately sedated on Precedex drip. No obvious etiology for patient's extreme agitation and altered status evident based on labs or imaging. We will admit patient for further treatment of his condition Critical Care Time Critical Care Time Critical Care Time: Yes Total Critical Care Time: 42 Attestation: Altered mental status, metabolic encephalopathy requiring sedation Discharge Plan Departure Patient Disposition: Admitted as Observation Clinical Impression: Acute metabolic encephalopathy, Altered mental status Admit Date/Time: 02/10/24 00:42 Admit Provider: Casey Obrien
--- NOTE | 2024-02-09 20:52 | EKG_ITS ---
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
[2024-02-09 20:57] LABS: Add Manual Diff / Slide Review NO; Basophils Absolute Auto 0 /uL (0-100); Basophils Percent Auto 0.6 % (0-2); Eosinophils Absolute Auto 100 /uL (0-450); Eosinophils Percent Auto 1.3 % (2-4); Hematocrit 37.6 % (41-53); Hemoglobin 13.1 g/dL (13.5-17.5); Lymphocytes Absolute Auto 1300 /uL (1100-4500); Lymphocytes Percent Auto 23.2 % (25-40); Mean Corpuscular HGB Conc 34.9 % (30-36); Mean Corpuscular Hemoglobin 36.4 PG (26-34); Mean Corpuscular Volume 104.2 fL (80-100); Monocytes Absolute Auto 600 /uL (0-900); Neutrophils Absolute Auto 3700 /uL (1500-7000); Neutrophils Percent Auto 63.9 % (50-75); Platelet Count 284 X10^3/uL (150-400); Red Blood Cell Count 3.61 X10^6/uL (4.5-5.9); White Blood Cell Count 5.7 X10^3/uL (4.5-11.0)
[2024-02-09 21:04] LABS: Alanine Aminotransferase 23 IU/L (<50); Albumin 4.6 g/dL (3.5-5.0); Albumin Globulin Ratio 1.6 (1.0-2.8); Alkaline Phosphatase 105 U/L (38-126); Aspartate Aminotransferase 27 IU/L (17-59); BUN Creatinine Ratio 18.3 (6-22); Bilirubin Total 0.6 mg/dL (0.2-1.3); Blood Urea Nitrogen 19 mg/dL (9-20); Calcium 9.7 mg/dL (8.4-10.2); Carbon Dioxide 17 mmol/L (22-32); Chloride 105 mmol/L (98-107); Estimated Glomerular Filt Rate > 60 mL/min (>60); Ethanol (ETOH) < 10 mg/dL; Globulin 2.8 g/dL (1.7-4.1); Glucose 129 mg/dL (80-110); HEMOLYSIS < 15 (0-50); Potassium 4.3 mmol/L (3.4-5.1); Sodium 135 mmol/L (137-145); Total Protein 7.4 g/dL (6.3-8.2)
[2024-02-09] MEDS: ONDANSETRON 4 MG/2 ML INJ IV (21:39)
[2024-02-09] MEDS: MIDAZOLAM 5 MG/ML VIAL IV (21:39)
--- NOTE | 2024-02-09 21:55 | PC.NURSE ---
smog technician Nannette attempted to get an EKG and the patient began thrashing and pulling off the leads. This RN and Dr. Castellano came to the bedside and the provider verbal ordered 5 of Versed, see MAR. Patient tolerated med well,maintained their airway and maintained sats above 92%. patient was able to be taken to CT and is resting comfortably with Kiersten at bedside as of 2225
[2024-02-09 23:11] LABS: UR Morphine/Opiate cutoff 300 Negative (Negative); Ur Creatinine Normal (Normal); Ur Specific Gravity Normal (Normal); Urine Amphetamines Negative (Negative); Urine Barbiturates Negative (Negative); Urine Benzodiazepines Negative (Negative); Urine Cocaine Negative (Negative); Urine MDMA Negative (Negative); Urine Methadone Negative (Negative); Urine Methamphetamines Negative (Negative); Urine Oxycodone Negative (Negative); Urine Phencyclidine Negative (Negative); Urine Tetrahydrocannabinol Negative (Negative); Urine Tricyclic Antidepressant Negative (Negative); Urine pH Normal (Normal)
[2024-02-09] MEDS: HALOPERIDOL 5 MG/ML VIAL IV (23:20)
[2024-02-09 23:23] LABS: Ammonia (NH3) < 9 umol/L (9-30)
[2024-02-09] MEDS: dexmedeTOMIDine in 0.9 % NaCL 400 MCG/100 ML PLAST..BAG 9.639 MCG IV (23:25)
--- NOTE | 2024-02-09 23:33 | EKG_ITS ---
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
[2024-02-09 23:42] LABS: Creatine Kinase 143 U/L (55-170)
[2024-02-09 23:55] LABS: Troponin I < 0.012 ng/mL (0.01-0.034)
[2024-02-10] VITALS (28 sets, daily range): BP systolic 90–163; BP diastolic 56–92; PULSE 50–97; RESP 8–30; TEMP 36.1–37.1; O2SAT 93–99; BMI 23.6
--- NOTE | 2024-02-10 00:10 | DI.RAD.S_ITS ---
PROCEDURE: XR CHEST 1V INDICATIONS: AMS TECHNIQUE: One view of the chest was acquired. COMPARISON: [facility], , XR CHEST 1V, 01/16/2024, 23:09. [facility], CR, XR CHEST 1V, 12/31/2023, 8:26. FINDINGS: Surgical changes and devices: None. Lungs and pleura: Similar prominence of the perihilar structures. Low lung volumes. No drainable pleural effusions Mediastinum: Heart size is within normal limits. Prominent mediastinal contours are unchanged, indeterminate on radiography. Bones and chest wall: Degenerative changes IMPRESSION: Limited single view radiograph without acute abnormality. Low lung volumes. Dictated by: Boni Hernandez M.D. on 02/10/2024 at 0:43 Approved by: Boni Hernandez M.D. on 02/10/2024 at 0:45
[2024-02-10] MEDS: LACTATED RINGERS 1,000 ML 100 ML IV ×3 (03:00→23:32)
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
[2024-02-10] MEDS: HYDROMORPHONE 0.5 MG INJ IV ×4 (04:08→23:28)
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
[2024-02-10] MEDS: TRAMADOL 50 MG TABLET PO ×2 (05:52→20:27)
--- NOTE | 2024-02-10 07:45 | EKG_ITS ---
[facility] [address] [place] [address] Test Date: 2024-02-10 Pat Name: Juaquin Sneed Department: Room: 230 Gender: Male Side Gluer: : 1955 Requested By: Order Number: [id number] Reading MD: Angel Wood Measurements Intervals [place] Rate: 72 P: 34 CT: 146 QRS: -19 QRSD: 90 T: -8 QT: 398 QTc: 435 Interpretive Statements Normal sinus rhythm Inferior infarct , age undetermined Electronically Signed On 02-10-2024 18:34:02 PDT by Angel Wood
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
[2024-02-10 08:42] LABS: Ammonia (NH3) < 9 umol/L (9-30)
[2024-02-10 08:44] LABS: Alanine Aminotransferase 22 IU/L (<50); Albumin 4.3 g/dL (3.5-5.0); Albumin Globulin Ratio 1.6 (1.0-2.8); Alkaline Phosphatase 92 U/L (38-126); Aspartate Aminotransferase 28 IU/L (17-59); Bilirubin Total 0.7 mg/dL (0.2-1.3); Blood Urea Nitrogen 23 mg/dL (9-20); Calcium 9.9 mg/dL (8.4-10.2); Carbon Dioxide 20 mmol/L (22-32); Chloride 105 mmol/L (98-107); Estimated Glomerular Filt Rate > 60 mL/min (>60); Globulin 2.7 g/dL (1.7-4.1); Glucose 88 mg/dL (80-110); HEMOLYSIS < 15 (0-50); Potassium 5.1 mmol/L (3.4-5.1); Sodium 136 mmol/L (137-145)
[2024-02-10 08:52] LABS: Add Manual Diff / Slide Review NO; Basophils Absolute Auto 100 /uL (0-100); Basophils Percent Auto 1.5 % (0-2); Eosinophils Absolute Auto 100 /uL (0-450); Eosinophils Percent Auto 1.3 % (2-4); Hematocrit 35.6 % (41-53); Hemoglobin 12.3 g/dL (13.5-17.5); Lymphocytes Absolute Auto 1600 /uL (1100-4500); Lymphocytes Percent Auto 29.5 % (25-40); Mean Corpuscular HGB Conc 34.7 % (30-36); Mean Corpuscular Hemoglobin 36.2 PG (26-34); Mean Corpuscular Volume 104.4 fL (80-100); Monocytes Absolute Auto 600 /uL (0-900); Monocytes Percent Auto 11.2 % (3-14); Neutrophils Absolute Auto 3000 /uL (1500-7000); Neutrophils Percent Auto 56.5 % (50-75); Platelet Count 257 X10^3/uL (150-400); Red Blood Cell Count 3.41 X10^6/uL (4.5-5.9); Red Cell Distribution Width 15.9 % (11.6-14.8); White Blood Cell Count 5.4 X10^3/uL (4.5-11.0)
[2024-02-10] MEDS: METOPROLOL ER 25 MG TABLET PO (09:03)
[2024-02-10] MEDS: GABAPENTIN 300 MG CAPSULE 600 MG PO ×2 (09:03→20:27)
[2024-02-10] MEDS: CLOPIDOGREL 75 MG TABLET PO (09:03)
[2024-02-10] MEDS: PANTOPRAZOLE 40 MG VIAL IV (09:04)
[2024-02-10 09:07] LABS: MRSA (Nasal) PCR NOT DETECTED (Not Detect)
[2024-02-10] MEDS: LORazepam 2 MG/ML INJ IV (09:23)
[2024-02-10] MEDS: MULTIVITAMIN 1 TABLET 1 TAB PO (09:24)
[2024-02-10] MEDS: FOLIC ACID 1 MG TABLET PO (09:24)
[2024-02-10] MEDS: THIAMINE 100 MG TABLET PO (09:27)
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
[2024-02-10] MEDS: MELATONIN 3 MG TABLET 12 MG PO (23:00)
[2024-02-11] VITALS (37 sets, daily range): BP systolic 125–199; BP diastolic 76–112; PULSE 61–81; RESP 9–55; TEMP 36.6–37; O2SAT 83–97
[2024-02-11] MEDS: cloNIDine 0.1 MG TABLET PO (04:08)
[2024-02-11] MEDS: HYDROMORPHONE 0.5 MG INJ IV (04:09)
[2024-02-11] MEDS: HYDRALAZINE 20 MG/ML VIAL 10 MG IV (05:32)
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
[2024-02-11 08:02] LABS: Hematocrit 37.2 % (41-53); Hemoglobin 12.8 g/dL (13.5-17.5); Mean Corpuscular HGB Conc 34.3 % (30-36); Mean Corpuscular Hemoglobin 36.1 PG (26-34); Mean Corpuscular Volume 105.2 fL (80-100); Platelet Count 211 X10^3/uL (150-400); Red Blood Cell Count 3.54 X10^6/uL (4.5-5.9)
[2024-02-11 09:04] LABS: Alanine Aminotransferase 20 IU/L (<50); Albumin Globulin Ratio 1.7 (1.0-2.8); Alkaline Phosphatase 84 U/L (38-126); Aspartate Aminotransferase 36 IU/L (17-59); BUN Creatinine Ratio 22.5 (6-22); Bilirubin Total 0.8 mg/dL (0.2-1.3); Blood Urea Nitrogen 18 mg/dL (9-20); Calcium 9.6 mg/dL (8.4-10.2); Carbon Dioxide 19 mmol/L (22-32); Chloride 106 mmol/L (98-107); Estimated Glomerular Filt Rate > 60 mL/min (>60); Globulin 2.3 g/dL (1.7-4.1); Glucose 72 mg/dL (80-110); HEMOLYSIS 44 (0-50); Potassium 4.6 mmol/L (3.4-5.1); Sodium 136 mmol/L (137-145); Total Protein 6.3 g/dL (6.3-8.2)
[2024-02-11] MEDS: METOPROLOL ER 25 MG TABLET PO (09:17)
[2024-02-11] MEDS: TRAMADOL 50 MG TABLET PO (09:17)
[2024-02-11] MEDS: MULTIVITAMIN 1 TABLET 1 TAB PO (09:17)
[2024-02-11] MEDS: THIAMINE 100 MG TABLET PO (09:18)
[2024-02-11] MEDS: GABAPENTIN 300 MG CAPSULE 600 MG PO (09:18)
[2024-02-11] MEDS: PANTOPRAZOLE 40 MG VIAL IV (09:18)
[2024-02-11] MEDS: FOLIC ACID 1 MG TABLET PO (09:18)
[2024-02-11] MEDS: BACLOFEN 10 MG TABLET PO (09:35)
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
--- NOTE | 2024-02-11 12:58 | CM.DPNOTE ---
DC Note Patient has improved greatly according to Dr Wood and will discharge home w/spouse today. Patient admitted to taking quite a bit of pain medication to help alleviate sx of back pain. Patient will return tomorrow for his scheduled spinal surgery with Dr Lin. CM team will be following closely during that admission for any discharge needs or concerns that may arise. At this time, back to functional baseline. JW
--- NOTE | 2024-02-11 16:42 | PC.NURSE ---
Pt agreeable to discharge. A&Ox4, ambulating with walker in room. Tabares d/c'ed, able to void. IV discontinued, telemetry removed. Spouse at bedside during education. Pt wheeled via w/c to private vehicle at approximately 1640.
== END 2024-02-11 16:40 | disposition home or self-care (01) | DRG 896 ==
LOC: ED 02-10 00:42 → AC 02-10 01:41 → ICU 02-10 08:37 → AC 02-12 07:47 → ICU 02-12 07:47
PROVIDERS: Hospitalist; Admitting Provider Internal Medicine; Emergency Provider Emergency Medicine; PCP Internal Medicine; Referring Provider Emergency Medicine; Visit Provider Internal Medicine
DX: F10.231 Alcohol dependence with withdrawal delirium (principal); G92.9 Unspecified toxic encephalopathy; S32.040A Wedge compression fracture of fourth lumbar vertebra, initial encounter for closed fracture; N13.8 Other obstructive and reflux uropathy; F32.A Depression, unspecified; N40.1 Benign prostatic hyperplasia with lower urinary tract symptoms; E78.2 Mixed hyperlipidemia; I10 Essential (primary) hypertension; I25.118 Atherosclerotic heart disease of native coronary artery with other forms of angina pectoris; J45.20 Mild intermittent asthma, uncomplicated; F19.239 Other psychoactive substance dependence with withdrawal, unspecified; V89.2XXA Person injured in unspecified motor-vehicle accident, traffic, initial encounter; Y90.0 Blood alcohol level of less than 20 mg/100 ml
CPT/HCPCS: 36415; 70450; 71045; 72131; 80053; 80305; 80320; 81003; 82140; 82550; 84484; 85025; 85027; 86140; 87797; 93005; 94762; 96365; 96366; 96375; 99285; 99291; G0378; J0360; J1170; J1630; J2060; J2250; J2405; J2470

== ENCOUNTER 2024-02-12 10:44 | Inpatient (IN) | payer MEDICARE, OTHER, SELFPAY ==
[2024-02-07 14:53] VITALS: BMI 24.3
[2024-02-10 00:51] VITALS: BMI 23.6
[2024-02-12] VITALS (22 sets, daily range): BP systolic 100–157; BP diastolic 60–91; PULSE 58–82; RESP 10–19; TEMP 36.4–36.8; O2SAT 94–100; BMI 24.3
--- NOTE | 2024-02-12 | DI.RAD.S_ITS ---
PROCEDURE: XR LUMBAR SPINE 2-3V INDICATIONS: L2-S1 SCREWS AND RODS INSERTION TECHNIQUE: 2 views of the lumbar spine were acquired. COMPARISON: [facility], CR, XR LUMBAR SPINE 2-3V, 01/23/2024, 14:54. FINDINGS: Bones: L2-S1 posterior fixation hardware.. There is normal bony alignment. No vertebral body compression fractures. No suspicious bony lesions. Soft tissues: Overlying bowel gas pattern is normal. No suspicious soft tissue calcifications. IMPRESSION: Expected postsurgical change for L2-S1 posterior fixation. Dictated by: Kayleen Mcdowell MD, PhD on 02/12/2024 at 16:21 Approved by: Kayleen Mcdowell MD, PhD on 02/12/2024 at 16:22
[2024-02-12] MEDS: ACETAMINOPHEN 325 MG TABLET 975 MG PO (11:24)
[2024-02-12] MEDS: LACTATED RINGERS 1,000 ML 42 ML IV (11:24)
--- NOTE | 2024-02-12 11:59 | PM.PREOP ---
Pre-operative Note Interval Note History & Physical reviewed/Exam performed by Physician: Yes Changes to H&P: No
[2024-02-12] MEDS: CEFAZOLIN 2 GM/100 ML PREMIX 100 ML IV ×2 (12:26→20:33)
--- NOTE | 2024-02-12 12:57 | SUR.OPER ---
Prone on spine table, head in foam head support, padded chest and pelvic supports, gel pad at knees, lower legs supported by pillows; nipples, genitalia and toes free of pressure, arms secured on foam padded arm boards at <90 degrees abduction. Tape over blanket at thigh secured to table.
[2024-02-12] MEDS: BUPIVACAINE 0.25% (PF) 60 ML, EPINEPHrine 0.15 MG INJ (13:02)
[2024-02-12] MEDS: BUPIVACAINE LIPOSOME 266 MG/20 ML VIAL INJ (13:02)
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
[2024-02-12] MEDS: hydrOXYzine 50 MG/ML INJ 25 MG IM (16:06)
[2024-02-12] MEDS: LORazepam 2 MG/ML INJ 0.5 MG IV ×2 (16:13→16:33)
[2024-02-12] MEDS: HYDROMORPHONE 1 MG INJ 0.5 MG IV ×3 (16:16→16:29)
[2024-02-12] MEDS: OXYCODONE IR 5 MG TABLET 10 MG PO (16:23)
[2024-02-12] MEDS: LACTATED RINGERS 1,000 ML 125 ML IV (17:53)
[2024-02-12] MEDS: OXYCODONE IR 10 MG TABLET PO (20:33)
[2024-02-12] MEDS: SENNOSIDES 8.6 MG TABLET 17.2 MG PO (20:33)
[2024-02-12] MEDS: GABAPENTIN 600 MG TABLET PO (20:33)
[2024-02-12] MEDS: DOCUSATE 100 MG CAPSULE PO (20:33)
[2024-02-12] MEDS: AMLODIPINE 5 MG TABLET 2.5 MG PO (20:34)
[2024-02-13] MEDS: OXYCODONE IR 10 MG TABLET PO ×5 (00:49→21:35)
[2024-02-13] MEDS: LACTATED RINGERS 1,000 ML 125 ML IV (00:49)
[2024-02-13] MEDS: HYDROMORPHONE 0.5 MG INJ IV (04:33)
[2024-02-13] MEDS: CEFAZOLIN 2 GM/100 ML PREMIX 100 ML IV (04:34)
[2024-02-13 06:00] VITALS: BP 147/87; PULSE 73; RESP 17; TEMP 37.1; O2SAT 97
[2024-02-13 06:52] LABS: Hematocrit 29.1 % (41-53); Hemoglobin 10.2 g/dL (13.5-17.5)
--- NOTE | 2024-02-13 07:34 | PM.PNPO.1 ---
Subjective Subjective Date Patient Seen: 02/13/24 Time Patient Seen: 07:34 Interval history: Pain has been severe. Denies fever or chills. No nausea or vomiting. Patient has his way home to assist him. Exam Vital Signs (past 8 hours): - 02/12/24 23:54 02/13/24 06:00 Temperature 98.3 F 98.8 F Pulse Rate 78 73 Respiratory Rate 17 17 Blood Pressure 118/87 147/87 H Pulse Oximetry 95 97 Oxygen Flow Rate 0 Oxygen Delivery Method Room Air Oxygen Flow Rate 0 Narrative Exam Narrative: 68-year-old male resting comfortably in bed in no apparent distress. 5/5 strength with dorsiflexion, plantar flexion, great toe extension bilaterally. Sensation grossly intact to light touch bilateral lower extremities. 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 Chronic nausea Slow transit constipation Asthma, mild intermittent Mixed hyperlipidemia Essential hypertension Coronary artery disease Chronic constipation Surgical History History of total left hip replacement History of repair of hiatal hernia (~09/2022) Hx of heart artery stent Social History marital status: details: , 2 siblings, brother , 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: spouse lives independently: Yes Smoking Status: Never smoker alcohol intake: former Assessment & Plan Post-op Postoperative Procedures: Procedures Operation Date: 02/12/24 12:15 Actual Procedure Side Surgeon p L2-3, L3-4, L4-5, L5-S1 PSF, L3-4, L4-5 Laminectomy-Robot Keely Lin MD Postoperative day: 1 Postoperative status narrative: Stable Postoperative plan narrative: Multimodal pain management Mobilize with physical therapy, limit bending, twisting, lifting DC Tabares catheter today DC Hemovac prior to discharge Disposition likely home today or tomorrow Quality VTE Deep Vein Thrombosis/Pulmonary Embolism Present on Admission: No
[2024-02-13 08:00] VITALS: BP 147/88; PULSE 82; RESP 18; TEMP 37.4; O2SAT 99
[2024-02-13] MEDS: DOCUSATE 100 MG CAPSULE PO ×2 (08:32→21:31)
[2024-02-13] MEDS: ATORVASTATIN 20 MG TABLET 80 MG PO (08:32)
[2024-02-13] MEDS: METOPROLOL ER 25 MG TABLET PO (08:32)
[2024-02-13] MEDS: GABAPENTIN 600 MG TABLET PO ×2 (08:32→21:31)
[2024-02-13] MEDS: NALTREXONE 50 MG 50 EACH PO (08:32)
[2024-02-13] MEDS: buPROPion XL 150 MG TAB 300 MG PO (08:33)
[2024-02-13] MEDS: MAGNESIUM OXIDE 400 MG TABLET PO (08:33)
[2024-02-13] MEDS: VENLAFAXINE ER 75 MG CAP PO (08:33)
[2024-02-13] MEDS: MELOXICAM 7.5 MG TABLET 15 MG PO (08:33)
[2024-02-13] MEDS: AMLODIPINE 5 MG TABLET 2.5 MG PO ×2 (08:33→21:31)
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
--- NOTE | 2024-02-13 09:43 | OT.IP.EVAL ---
Current Diagnoses Spinal stenosis, lumbar region with neurogenic claudication (02/12/24) Stable burst fracture of unspecified lumbar vertebra, initial encounter for closed fracture (02/12/24) Surgery Performed Operation Date: 02/12/24 12:15 Actual Procedures p L2-3, L3-4, L4-5, L5-S1 PSF, L3-4, L4-5 Laminectomy-Robot - Keely Lin MD Past Medical History (Last Reviewed 02/10/24 @ 07:47 by Angel Wood MD) Alcoholism Asthma, mild intermittent BPH w urinary obs/LUTS Chronic constipation Chronic nausea Compression fracture of L4 vertebra Coronary artery disease Depression Essential hypertension ETOH abuse History of myocardial infarction (~2014) Mixed hyperlipidemia Primary osteoarthritis involving multiple joints Slow transit constipation Surgical History (Last Reviewed 02/10/24 @ 07:47 by Angel Wood MD) History of repair of hiatal hernia (~09/2022) History of total left hip replacement Hx of heart artery stent Occupational Therapy Inpatient Evaluation/Re-Eval M1 PT/OT-IP Prior Functional Status Start: 02/13/24 12:54 Freq: NEEDED Status: Active Protocol: Document 02/13/24 13:41 CGR (Rec: 02/13/24 14:09 CGR [id number]) Medical Review Prior Functional Status Medical History Reviewed Yes Communication able to make needs known Mobility and Gait pt stated that he was independent with all mobilities and ambulation using crutches Activities of Daily Living and IADL's Pt states that he needed assist with LB dressing at times but otherwise performed all ADLs without assist. His takes care of most IADLs. Social History Household Members spouse Living Arrangements House Number of Floors (Floors) Two Floors Number of Stairs To Enter/Railing? 1 step to enter the house 15 steps L rail ascending to get to main level of the house, pt is able to stay on the lower level Home Environment Standard Height Toilet,Walk in Shower Home Equipment Four Wheel Walker,Crutches, Manual Wheelchair,Shower Seat without Backrest,Hand Held Shower,Grab Bars In Shower Employment Status Self-Employed Additional Social History Comment pt has a flat bed but states that he adjusts it using pillows. 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 M2 OT-IP Current Condition Start: 02/13/24 13:41 Freq: Status: Active Protocol: Document 02/13/24 13:41 CGR (Rec: 02/13/24 14:09 R [id number]) Occupational Therapy Current Condition Current Condition Evaluation Date 02/13/24 Treatment Diagnosis L2-S1 TLIF Diagnosis Onset Date 02/12/24 Post Operative Precautions Lumbar Precautions Log Roll,No Twisting,Limit Bending,Lifting Restriction of 10 lbs,Gait Belt above Incisional Area M3 OT- IP Subjective and Pain Start: 02/13/24 13:41 Freq: Status: Active Protocol: Document 02/13/24 13:41 CGR (Rec: 02/13/24 14:09 R [id number]) OT- Subjective Occupational Therapy Visit Type Type Initial Evaluation Visit Start Time 09:06 Visit Stop Time 09:34 OT Pain Assessment Pain When Pain Assessed At Rest Pain Present Pain Present Pain Reported Location back Intensity 7 Scale Used Numeric (0 - 10) Pain Behaviors Guarding Management Techniques Modification of Treatment,Re- positioning M4 OT- IP ADL's Start: 02/13/24 13:41 Freq: Status: Active Protocol: Document 02/13/24 13:41 CGR (Rec: 02/13/24 14:09 R [id number]) OT [id number] Comments OT Self-Feeding Comments not meal time OT ADL-Grooming General Evaluation Grooming Ability Standby Assistance Areas Needing Assistance Face Washing Comments OT Grooming Comments standing at sink OT ADL-Oral Care Comments Oral Care Comments pt declined OT ADL-Dressing Comments OT Dressing Comments not performed OT ADL-Toileting Comments OT Toileting Comments not performed, pt with acevedo at time of eval. OT ADL-Bathing Comments OT Bathing Comments not performed M5 OT- IP IADL's Start: 02/13/24 13:41 Freq: Status: Active Protocol: Document 02/13/24 13:41 CGR (Rec: 02/13/24 14:09 R [id number]) OT-Instrumental Activities of Daily Living Deficits IADL Deficits Identified Deficits Home Safety Awareness Awareness of Need for Assistance at Home Decreased Awareness Ability to Problem Solve Emergency Able to Problem Solve Situations Medication Management Medication Management No Deficits Identified Money Management Money Management No Deficits Identified Meal Preparation Meal Preparation Caregiver Provides Assist Roller Structural Mill Roller Structural Mill Caregiver Provides Assist Driving Driving Comments 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 M6 OT- IP Functional Cognition Start: 02/13/24 13:41 Freq: Status: Active Protocol: Document 02/13/24 13:41 CGR (Rec: 02/13/24 14:09 CGR [id number]) Cognitive Factors Limiting Selfcare Function Cognitive Ability Level of Alertness Alert Patient Orientation Name,Age,Birthday,Month,Date, Year,Day of Week,Place, Situation Attention Span Ability Capable of Focused Attention, Capable of Sustained Attention Ability to Follow Commands Able to Follow One Step Commands with Increased Time, Able to Follow One Step Commands with Repetition OT- Vision and Hearing OT- Hearing Assessment OT- Hearing Assessment WFL OT- Vision Assessment Visual Acuity Glasses All The Time Visual Attentiveness WFL Occular Pursuits WFL Visual Convergence WFL M7 OT- IP Mobility and Balance Start: 02/13/24 13:41 Freq: Status: Active Protocol: Document 02/13/24 13:41 CGR (Rec: 02/13/24 14:09 CGR [id number]) OT- Bed Mobility Assessment Rolling Type of Rolling Log Rolling,Roll to Right Level of Assistance Minimal Assistance Supine to Sit Supine to Sit Assist Minimal Assistance Scooting Scooting to Edge of Bed Standby Assistance OT-Transfer Assessment Sit to and From Stand Sit to and from Stand Minimal Assistance Transfers Transfer Ability Minimal Assistance Technique Transfer Destination Bed,Chair Transfer Technique Stand Step Pivot Devices Transfer Assistive Devices Gait Belt,Front Wheeled Walker Comments Mobility Comments Pt performed bed mobility then transfered to the chair. Pt then stood and ambulated to the sink for washing face and returned to sitting in the chair. Pt educated on back precautions throughout session . Pt needed mod vc for log roll. OT- Balance Assessment Sitting Balance and Reactions Static Sitting Balance Ability Good Dynamic Sitting Balance Ability Good M8 OT- IP Objective Assessments Start: 02/13/24 13:41 Freq: Status: Active Protocol: Document 02/13/24 13:41 CGR (Rec: 02/13/24 14:09 CGR [id number]) OT Gross Range of Motion Upper Extremity Range of Motion Assessment Within Functional Limits OT Strength Upper Extremity Strength Assessment Within Functional Limits Comments Strength Comments grossly 4+/5 OT- Coordination Assessment Upper Extremity Finger to Nose Test Within Functional Limits Finger Tapping Test Within Functional Limits OT-Muscle Tone Assessment Muscle Tone WNL Yes OT Sensation Assessment Edema Edema Absent M9 OT- IP Assessment and Plan Start: 02/13/24 13:41 Freq: Status: Active Protocol: Document 02/13/24 13:41 CGR (Rec: 02/13/24 14:09 CGR [id number]) OT Summary Assessment and Plan Potential Rehabilitation Potential Good Analytic Complexity at Evaluation Moderate Summary OT Impairments Pain,Balance,Functional Cognition,Functional Mobility, Dressing,Toileting,Bathing, Toilet Transfers,Shower Transfers,Activity Tolerance Progress Towards Goals Progressing Toward Goals Assessment Summary Pt presents as a moderate complexity evaluation s/p admit for 02/12/24 L2-S1 TLIF. Pt appears groggy today so LB dressing and further activities held for tomorrow. Pt would have difficulty with LB dressing and bathing at home and will need further training. Pt will likely be ready for discharge home in 1- 2 days. Goals Grooming Goal Independent Dressing Goal Independent Toileting Goal Independent Bathing Goal Independent Toilet Transfer Goal Independent Shower Transfer Goal Independent Days to Meet Goals 5 Frequency of Treatment Frequency Of Treatment Once a Day Treatment Plan OT Treatment Plan ADL Training,Functional Mobility,Patient/Family Education,Discharge Planning Other Treatment Recommendations and Next LB dressing, showering Treatment Focus Discharge Recommendations Transportation Needs at Discharge Private Vehicle
--- NOTE | 2024-02-13 09:55 | PT.IIE ---
Current Diagnoses Spinal stenosis, lumbar region with neurogenic claudication (02/12/24) Stable burst fracture of unspecified lumbar vertebra, initial encounter for closed fracture (02/12/24) Surgery Performed Operation Date: 02/12/24 12:15 Actual Procedures p L2-3, L3-4, L4-5, L5-S1 PSF, L3-4, L4-5 Laminectomy-Sharon - Keely Lin MD Surgical History (Last Reviewed 02/10/24 @ 07:47 by Angel Wood MD) History of repair of hiatal hernia (~09/2022) History of total left hip replacement Hx of heart artery stent Medical History (Last Reviewed 02/10/24 @ 07:47 by Angel Wood MD) Alcoholism Asthma, mild intermittent BPH w urinary obs/LUTS Chronic constipation Chronic nausea Compression fracture of L4 vertebra Coronary artery disease Depression Essential hypertension ETOH abuse History of myocardial infarction (~2014) Mixed hyperlipidemia Primary osteoarthritis involving multiple joints Slow transit constipation Physical Therapy Inpatient Evaluation/Re-Eval M1 PT/OT-IP Prior Functional Status Start: 02/13/24 12:54 Freq: NEEDED Status: Active Protocol: Document 02/13/24 09:55 AB (Rec: 02/13/24 13:04 AB [id number]) Medical Review Prior Functional Status Medical History Reviewed Yes Communication able to make needs known Mobility and Gait pt stated that he was independent with all mobilities and ambulation using crutches Social History Household Members spouse Living Arrangements Apartment/Condo Number of Floors (Floors) Two Floors Number of Stairs To Enter/Railing? 1 step to [place] the house 15 steps L rail ascending to get to main level of the house Home Environment Standard Height Toilet,Walk in Shower Home Equipment Front Wheel Walker,Four Wheel Walker,Crutches,Manual Wheelchair,Shower Seat with Backrest,Hand Held Shower,Grab Bars In Shower Additional Social History Comment pt has an adjustable bed M2 PT-IP Current Condition Start: 02/13/24 12:54 Freq: NEEDED Status: Active Protocol: Document 02/13/24 09:55 AB (Rec: 02/13/24 13:04 AB [id number]) Physical Therapy Current Condition Current Condition Evaluation Date 02/13/24 Treatment Diagnosis s/p L2-S1 TLIF; difficulty in walking Onset Date 02/12/24 M3 PT-IP Subjective Start: 08/06/24 12:54 Freq: NEEDED Status: Active Protocol: Document 02/13/24 09:55 AB (Rec: 02/13/24 13:04 AB [id number]) Subjective Physical Therapy Visit Type Type Initial Evaluation Visit Start Time 09:55 Visit Stop Time 10:20 Number of TERMINAL WORKER Visits 0 Physical Therapy Visit Comments Patient Comments agreeable to do PT Therapy Pain Assessment Pain When Pain Assessed At Rest Pain Present Pain Present Pain Reported Location back Intensity 8 Scale Used Numeric (0 - 10) Pain Behaviors Guarding Pain Management Techniques Apply Cold,Distraction, Modification of Treatment,Re- positioning,Timing of Activity with Medications M4 PT-IP Mobility and Gait Start: 02/13/24 12:54 Freq: NEEDED Status: Active Protocol: Document 02/13/24 09:55 AB (Rec: 02/13/24 13:04 AB [id number]) PT-Bed Mobility Assessment Rolling Type of Rolling Log Rolling Level of Assist Standby Assistance Supine to Sit Supine to Sit Standby Assistance Sit to Supine Sit to Supine Standby Assistance PT-Transfer Assessment Sit to and From Stand Sit to and from Stand Contact Guard Assistance,1 Person Assistance,Use of Upper Extremities Equipment Transfer Assistive Device Gait Belt,Front Wheeled Walker Orthotic/Prosthetic Devices or Brace: No Transfers Transfer Destination Bed Transfer Technique ambulated Transfer Ability Level of Assist Contact Guard Assistance,1 Person Assistance,Use of Upper Extremities Comments Mobility Comments pt sitting on the chair and agreeable to do PT. obtained PLOF and home set up from pt. reviewd back precautions and log roll bed mobility with pt. pt completed sit to stand CGA and ambulated in room using fWW CGA. pt sat on EOB. completed log roll sit<>supine SBA and cues for techniques. pt can be impulsive. pt completed sit to stand from EOB CGA and step transfer to chair using fWW CGA and cues. positioned pt on the chair. call light and table placed within reach. informed pt regarding caregiver training and stated that he will let spouse to know to come in at ~ 2pm today . Gait Assessment Gait Gait Assistance Required: Contact Guard Assist Distance (Feet) 40 Able to Maintain Weight Bearing Status Yes During Gait Assistive Devices Assistive Device Gait Belt,Front Wheeled Walker Orthotic/Prosthetic Devices or Brace: No Gait Deviations General Gait Pattern Decreased Stride Length, Decreased Feet Clearance Factors Limiting Gait Function Factors Limiting Gait Function Decreased Activity Tolerance, Decreased Sensation,Decreased Strength,Difficulty Following Directions,Limited Range of Motion,Pain,Poor Balance,Poor Safety Awareness PT-Balance Assessment Sitting Balance and Reactions Static Sitting Balance Ability Good Dynamic Sitting Balance Ability Good Standing Balance and Reactions Static Standing Balance Ability Fair Dynamic Standing Balance Ability Fair Device Used FWW M5 PT-IP Objective Assessments Start: 02/13/24 12:54 Freq: NEEDED Status: Active Protocol: Document 02/13/24 09:55 AB (Rec: 02/13/24 13:04 AB [id number]) Orientation Orientation/Cognition Level of Alertness Alert Orientation Name,Place,Situation Safety Awareness Decreased Safety Awareness Memory Description Short Term Impaired Gross Range of Motion Lower Extremity ROM Assessment Within Functional Limits Strength Lower Extremity Strength Assessment Within Functional Limits Coordination Assessment Gross Coordination Gross Coordination WNL Sensation Assessment Sensation Gross Sensation WNL Muscle Tone Muscle Tone WNL Yes M6 PT-IP Treatment Start: 02/13/24 12:54 Freq: NEEDED Status: Active Protocol: Document 02/13/24 09:55 AB (Rec: 02/13/24 13:04 AB [id number]) Physical Therapy Treatment Education Education Provided Precautions,Weight Bearing Status,Safety M7 PT-IP Assessment and Plan Start: 02/13/24 12:54 Freq: NEEDED Status: Active Protocol: Document 02/13/24 09:55 AB (Rec: 02/13/24 13:04 AB [id number]) PT Summary Assessment and Plan Potential Rehabilitation Potential Fair Status of Condition at Evaluation Stable Summary Impairments Pain,ROM,Strength,Balance, Coordination,Sensation,Tone, Cognition,Bed Mobility, Transfers,Gait,Activity Tolerance Assessment Summary pt is a 68 y/o M s/p L2-3, L3- 4, L4-5, L5S1 TLIF POD 1. pt with back precautions. pt requiring CGA with mobility using FWW but requiring cues for precautions and safety. caregiver training set up this afternoon. will also need to do stair climbing training prior to d/c. will continue to assess. Goals Bed Mobility Goal Independent Transfer Goal Independent,Front Wheeled Walker Gait Goal Independent,Front Wheel Walker Gait Distance 150 Other Goals up/down 1 step using FWW SBA up/down 15 steps L rail SBA Days to Meet Goals 5 Frequency of Treatment Frequency Of Treatment Twice a Day Treatment Plan Physical Therapy Treatment Plan Bed Mobility Training,Transfer Training,Gait Training, Therapeutic Exercise,Balance Retraining,Post Op Education, Discharge Planning,Hot or Cold Pack,Neuromuscular Re-ed, Coordination Retraining,Manual Therapy Other Recommendations and Next Treatment caregiver training 8/6 ~ 2pm Focus Precautions Lumbar Precautions Log Roll,No Twisting,Limit Bending,Lifting Restriction of 10 lbs,Gait Belt above Incisional Area Recommendations To Nursing Amount of Assist Needed 1 Person Assist Discharge Recommendations PT Discharge Recommendations Home with Assistance Transportation Needs at Discharge Private Vehicle
--- NOTE | 2024-02-13 11:07 | PC.NURSE ---
Patient up with physical therapy and sat up in chair for a couple of hours. Back to bed now and aecvedo catheter is being taken out by occupational therapist rehab manager's. Dressing to lower back cdi, patient given oxycodone for pain, and he has been comfortable.
[2024-02-13 12:00] VITALS: BP 143/77; PULSE 67; RESP 16; TEMP 37; O2SAT 98
--- NOTE | 2024-02-13 14:30 | PT.IPTN ---
Current Diagnoses Spinal stenosis, lumbar region with neurogenic claudication (02/12/24) Stable burst fracture of unspecified lumbar vertebra, initial encounter for closed fracture (02/12/24) Surgery Performed Operation Date: 02/12/24 12:15 Actual Procedures p L2-3, L3-4, L4-5, L5-S1 PSF, L3-4, L4-5 Laminectomy-Robot - Keely Lin MD Physical Therapy Treatment Note M2 PT-IP Current Condition Start: 02/13/24 12:54 Freq: NEEDED Status: Active Protocol: Document 02/13/24 09:55 AB (Rec: 02/13/24 13:04 AB [id number]) Physical Therapy Current Condition Current Condition Evaluation Date 02/13/24 Treatment Diagnosis s/p L2-S1 TLIF; difficulty in walking Onset Date 02/12/24 M3 PT-IP Subjective Start: 02/13/24 12:54 Freq: NEEDED Status: Active Protocol: Document 02/13/24 14:30 AB (Rec: 02/13/24 16:45 AB [id number]) Subjective Physical Therapy Visit Type Type Treatment Note Visit Start Time 14:30 Visit Stop Time 15:10 Number of [employer] ADMINISTRATOR Visits 0 Physical Therapy Visit Comments Patient Comments needs encouragement to do PT Therapy Pain Assessment Pain When Pain Assessed At Rest Pain Present Pain Present Pain Reported Location Left Lower Leg Scale Used pain scale not stated Pain Management Techniques Distraction,Modification of Treatment,Re-positioning, Timing of Activity with Medications M4 PT-IP Mobility and Gait Start: 02/13/24 12:54 Freq: NEEDED Status: Active Protocol: Document 02/13/24 14:30 AB (Rec: 02/13/24 16:45 AB [id number]) PT-Bed Mobility Assessment Rolling Type of Rolling Log Rolling Level of Assist Standby Assistance Supine to Sit Supine to Sit Standby Assistance Sit to Supine Sit to Supine Standby Assistance PT-Transfer Assessment Sit to and From Stand Sit to and from Stand Contact Guard Assistance,1 Person Assistance,Use of Upper Extremities Equipment Transfer Assistive Device Gait Belt,Front Wheeled Walker Orthotic/Prosthetic Devices or Brace: No Transfers Transfer Destination Bed,Chair Transfer Technique ambulated Transfer Ability Level of Assist Contact Guard Assistance,1 Person Assistance,Use of Upper Extremities Comments Mobility Comments pt supine in bed. spouse in room for caregiver training. educated spouse regarding pt's back precautions and log roll bed mobility. pt completed log roll supine to sit SBA with max cues to complete. educated spouse to cue pt with log roll. educated spouse on how to use safety belt and how to assist pt. spouse was able to put safety belt on pt. pt c/o increase LLE pain and stated that he does not think he can walk. informed pt that we need to do caregiver training and if pt cannot do it today, spouse has to come back to tomorrow for training. pt then agreed to continue PT . educated spouse on how to assist pt with sit to stand and ambulation. spouse assisted pt with ambulation using FWW CGA ~ 20 ft to w/c. pt is impulsive and cued to slow down. assisted pt to the stairs. educated pt and spouse on how to do stairs. pt completed up/ down platform step using FWW CGA and spouse assisted. pt completed up/down steps holding on to L rail with B hands and completed CGA with spouse assisting. assisted pt back to his room. pt requested to go back to bed . ambulated from w/c to bed ~ 20 ft using fWW CGA with spouse assisting. completed sit to supine SBA and max cues for log roll technique. positioned pt in bed. call light and table placed within reach. pt and spouse without further concerns. Gait Assessment Gait Gait Assistance Required: Contact Guard Assist Distance (Feet) 20 Able to Maintain Weight Bearing Status Yes During Gait Assistive Devices Assistive Device Gait Belt,Front Wheeled Walker Orthotic/Prosthetic Devices or Brace: No Gait Deviations General Gait Pattern Decreased Stride Length, Decreased Feet Clearance Factors Limiting Gait Function Factors Limiting Gait Function Decreased Activity Tolerance, Decreased Strength,Difficulty Following Directions,Limited Range of Motion,Pain,Poor Balance,Poor Safety Awareness Stair Climbing Assessment Evaluation Level of Assist On Stairs Contact Guard Assistance Devices Stair Climbing Assistive Devices Front Wheel Walker,Left Railing Technique/Endurance Stair Climbing Direction Ascend and Descend Stair Climbing Technique Step to Step Number of Steps Climbed 3 Stair Climbing Set # Repetitions (reps) 1 M5 PT-IP Objective Assessments Start: 02/13/24 12:54 Freq: NEEDED Status: Active Protocol: Document 02/13/24 09:55 AB (Rec: 02/13/24 13:04 AB [id number]) Orientation Orientation/Cognition Level of Alertness Alert Orientation Name,Place,Situation Safety Awareness Decreased Safety Awareness Memory Description Short Term Impaired Gross Range of Motion Lower Extremity ROM Assessment Within Functional Limits Strength Lower Extremity Strength Assessment Within Functional Limits Coordination Assessment Gross Coordination Gross Coordination WNL Sensation Assessment Sensation Gross Sensation WNL Muscle Tone Muscle Tone WNL Yes M6 PT-IP Treatment Start: 02/13/24 12:54 Freq: NEEDED Status: Active Protocol: Document 02/13/24 14:30 AB (Rec: 02/13/24 16:45 AB [id number]) Physical Therapy Treatment Education Education Provided Precautions,Safety M7 PT-IP Assessment and Plan Start: 02/13/24 12:54 Freq: NEEDED Status: Active Protocol: Document 02/13/24 14:30 AB (Rec: 02/13/24 16:45 AB [id number]) PT Summary Assessment and Plan Potential Rehabilitation Potential Fair Summary Impairments Pain,ROM,Strength,Balance, Coordination,Sensation,Tone, Cognition,Bed Mobility, Transfers,Gait,Activity Tolerance Progress Towards Goals Slow Progress due to Pain Assessment Summary caregiver training conducted and spouse was able to assist pt with mobility using fWW. pt c/o increase LLE pain affecting mobility and is impulsive with decrease safety awareness. pt plans to go home and spouse to assist him. will continue to assess progress. Goals Bed Mobility Goal Independent Transfer Goal Independent,Front Wheeled Walker Gait Goal Independent,Front Wheel Walker Gait Distance 150 Other Goals up/down 1 step using FWW SBA up/down 15 steps L rail SBA Days to Meet Goals 5 Frequency of Treatment Frequency Of Treatment Twice a Day Treatment Plan Physical Therapy Treatment Plan Bed Mobility Training,Transfer Training,Gait Training, Therapeutic Exercise,Balance Retraining,Post Op Education, Discharge Planning,Hot or Cold Pack,Neuromuscular Re-ed, Coordination Retraining,Manual Therapy Precautions Lumbar Precautions Log Roll,No Twisting,Limit Bending,Lifting Restriction of 10 lbs,Gait Belt above Incisional Area Recommendations To Nursing Amount of Assist Needed 1 Person Assist Discharge Recommendations PT Discharge Recommendations Home with Assistance
[2024-02-13] MEDS: SENNOSIDES 8.6 MG TABLET 17.2 MG PO (21:31)
[2024-02-13] MEDS: MELATONIN 3 MG TABLET 12 MG PO (21:31)
[2024-02-14] MEDS: OXYCODONE IR 10 MG TABLET PO ×2 (00:52→08:30)
[2024-02-14 06:00] VITALS: BP 133/82; PULSE 89; RESP 18; TEMP 36.8; O2SAT 97
[2024-02-14 08:00] VITALS: BP 110/71; PULSE 91; RESP 18; TEMP 37.2; O2SAT 95
[2024-02-14] MEDS: MAGNESIUM OXIDE 400 MG TABLET PO (08:23)
[2024-02-14] MEDS: AMLODIPINE 5 MG TABLET 2.5 MG PO (08:23)
[2024-02-14 08:24] VITALS: BP 110/71
[2024-02-14] MEDS: ATORVASTATIN 20 MG TABLET 80 MG PO (08:24)
[2024-02-14] MEDS: DOCUSATE 100 MG CAPSULE PO (08:24)
[2024-02-14] MEDS: VENLAFAXINE ER 75 MG CAP PO (08:24)
[2024-02-14] MEDS: METOPROLOL ER 25 MG TABLET PO (08:24)
[2024-02-14] MEDS: GABAPENTIN 600 MG TABLET PO (08:24)
[2024-02-14] MEDS: buPROPion XL 150 MG TAB 300 MG PO (08:24)
[2024-02-14] MEDS: MELOXICAM 7.5 MG TABLET 15 MG PO (08:24)
[2024-02-14] MEDS: NALTREXONE 50 MG 50 EACH PO (08:25)
--- NOTE | 2024-02-14 09:41 | PT.IPTN ---
Current Diagnoses Spinal stenosis, lumbar region with neurogenic claudication (02/12/24) Stable burst fracture of unspecified lumbar vertebra, initial encounter for closed fracture (02/12/24) Surgery Performed Operation Date: 02/12/24 12:15 Actual Procedures p L2-3, L3-4, L4-5, L5-S1 PSF, L3-4, L4-5 Laminectomy-Robot - Keely Lin MD Physical Therapy Treatment Note M2 PT-IP Current Condition Start: 02/13/24 12:54 Freq: NEEDED Status: Active Protocol: Document 02/13/24 09:55 AB (Rec: 02/13/24 13:04 AB [id number]) Physical Therapy Current Condition Current Condition Evaluation Date 02/13/24 Treatment Diagnosis s/p L2-S1 TLIF; difficulty in walking Onset Date 02/12/24 M3 PT-IP Subjective Start: 02/13/24 12:54 Freq: NEEDED Status: Active Protocol: Document 02/14/24 09:41 AB (Rec: 02/14/24 12:02 AB [id number]) Subjective Physical Therapy Visit Type Type Treatment Note Visit Start Time 09:41 Visit Stop Time 09:55 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 [employer]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 0 Physical Therapy Visit Comments Patient Comments agreeable to do PT M4 PT-IP Mobility and Gait Start: 02/13/24 12:54 Freq: NEEDED Status: Active Protocol: Document 02/14/24 09:41 AB (Rec: 02/14/24 12:02 AB [id number]) PT-Bed Mobility Assessment Rolling Level of Assist Standby Assistance Supine to Sit Supine to Sit Standby Assistance PT-Transfer Assessment Sit to and From Stand Sit to and from Stand Standby Assistance Equipment Transfer Assistive Device Gait Belt,Front Wheeled Walker Orthotic/Prosthetic Devices or Brace: No Transfers Transfer Destination Chair Transfer Technique ambulated Transfer Ability Level of Assist Standby Assistance,Contact Guard Assistance Comments Mobility Comments pt supine in bed and agreeable to do PT. completed log roll supine to sit SBA with cues for precautions. pt continues to be impulsive and needed cues for safety. completed sit to stand SBA. pt ambulated in the hallway using FWW ~ 225 SBA to CGA and cues for safety . pt ambulated back to his room and sat on the chair. positioned pt on the chair. call light and table placed within reach. refused to do stair climbing today. caregiver training and stair climbing conducted yesterday. spouse was able to assist pt. Gait Assessment Gait Gait Assistance Required: Standby Assistance,Contact Guard Assist Distance (Feet) 225 Able to Maintain Weight Bearing Status Yes During Gait Assistive Devices Assistive Device Gait Belt,Front Wheeled Walker Orthotic/Prosthetic Devices or Brace: No Gait Deviations General Gait Pattern Decreased Stride Length, Decreased Feet Clearance Factors Limiting Gait Function Factors Limiting Gait Function Decreased Activity Tolerance, Decreased Strength,Difficulty Following Directions,Limited Range of Motion,Pain,Poor Balance,Poor Safety Awareness M5 PT-IP Objective Assessments Start: 02/13/24 12:54 Freq: NEEDED Status: Active Protocol: Document 02/13/24 09:55 AB (Rec: 02/13/24 13:04 AB [id number]) Orientation Orientation/Cognition Level of Alertness Alert Orientation Name,Place,Situation Safety Awareness Decreased Safety Awareness Memory Description Short Term Impaired Gross Range of Motion Lower Extremity ROM Assessment Within Functional Limits Strength Lower Extremity Strength Assessment Within Functional Limits Coordination Assessment Gross Coordination Gross Coordination WNL Sensation Assessment Sensation Gross Sensation WNL Muscle Tone Muscle Tone WNL Yes M6 PT-IP Treatment Start: 02/13/24 12:54 Freq: NEEDED Status: Active Protocol: Document 02/14/24 09:41 AB (Rec: 02/14/24 12:02 AB [id number]) Physical Therapy Treatment Education Education Provided Precautions,Safety M7 PT-IP Assessment and Plan Start: 02/13/24 12:54 Freq: NEEDED Status: Active Protocol: Document 02/14/24 09:41 AB (Rec: 02/14/24 12:02 AB [id number]) PT Summary Assessment and Plan Potential Rehabilitation Potential Fair Summary Impairments Pain,ROM,Strength,Balance, Coordination,Sensation,Tone, Cognition,Bed Mobility, Transfers,Gait,Activity Tolerance Progress Towards Goals Progressing Toward Goals Assessment Summary pt requiring SBA to CGA for mobility using FWW but requires cues for precautions and safety. caregiver training was completed yesterday and spouse was able to assist pt safely. pt may go home when medically stable. Goals Bed Mobility Goal Independent Transfer Goal Independent,Front Wheeled Walker Gait Goal Independent,Front Wheel Walker Gait Distance 150 Other Goals up/down 1 step using FWW SBA up/down 15 steps L rail SBA Days to Meet Goals 5 Frequency of Treatment Frequency Of Treatment Twice a Day Treatment Plan Physical Therapy Treatment Plan Bed Mobility Training,Transfer Training,Gait Training, Therapeutic Exercise,Balance Retraining,Post Op Education, Discharge Planning,Hot or Cold Pack,Neuromuscular Re-ed, Coordination Retraining,Manual Therapy Precautions Lumbar Precautions Log Roll,No Twisting,Limit Bending,Lifting Restriction of 10 lbs,Gait Belt above Incisional Area Recommendations To Nursing Amount of Assist Needed 1 Person Assist Discharge Recommendations PT Discharge Recommendations Home with Assistance
--- NOTE | 2024-02-14 11:13 | CM.DPC ---
DCP Cont. Reviewed EMR and team rounds for status updates. Pt has been medically cleared for home d/c. He declines the need for Home Health, but will call this [employer] MACHINE OPERATOR prior to d/c after he speaks to his to confirm. His will be here to transport him home later this afternoon. No further d/c needs indicated at this time.
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
--- NOTE | 2024-02-14 12:24 | PC.NURSE ---
Pt is dressed and ready for discharge home with Spouse. IV has been removed. Hemovac has been removed and dsg to back has been changed (it had rolled up on itself). Went over d/c instructions with Pt - discussed d/c meds, time of last dose, reviewed stroke education, s/s of infection, no driving while on narcotics, drink plenty of fluids to prevent constipation or dehydration, no deep bending lifting or twisting, log roll in bed, and follow up as scheduled.
== END 2024-02-14 13:41 | disposition home or self-care (01) | DRG 460 ==
PROVIDERS: Admitting Provider Orthopaedic Surgery Orthopaedic Surgery of the Spine; PCP Internal Medicine; Referring Provider Orthopaedic Surgery Orthopaedic Surgery of the Spine; Visit Provider Orthopaedic Surgery Orthopaedic Surgery of the Spine
PROC: 0SG1071 Fusion of 2 or more Lumbar Vertebral Joints with Autologous Tissue Substitute, Posterior Approach, Posterior Column, Open Approach (ICD-10-PCS; principal; 2024-02-12 12:15)
DX: S32.041A Stable burst fracture of fourth lumbar vertebra, initial encounter for closed fracture (principal); M48.062 Spinal stenosis, lumbar region with neurogenic claudication; J45.909 Unspecified asthma, uncomplicated; N40.0 Benign prostatic hyperplasia without lower urinary tract symptoms; E78.2 Mixed hyperlipidemia; I10 Essential (primary) hypertension; I25.10 Atherosclerotic heart disease of native coronary artery without angina pectoris; K59.09 Other constipation; V47.0XXA Car driver injured in collision with fixed or stationary object in nontraffic accident, initial encounter
CPT/HCPCS: 36415; 72100; 76000; 85014; 85018; 97116; 97161; 97166; 97530; 97535; A9270; C1713; C9290; J0171; J0690; J1100; J1170; J2060; J2405; J2704; J3410

== ENCOUNTER 2024-02-20 11:48 | Emergency (ER) | payer MEDICARE, OTHER, SELFPAY ==
[2024-02-12 10:53] VITALS: BMI 24.3
[2024-02-20] VITALS (10 sets, daily range): BP systolic 107–161; BP diastolic 66–72; PULSE 59–66; RESP 13–24; TEMP 36.8–37; O2SAT 95–97; BMI 23.3
--- NOTE | 2024-02-20 11:59 | ED.AMS ---
HPI - Altered Mental Status General Chief Complaint: Altered Mental Status Stated Complaint: fell a couple times, sent by Dr. Jade Time Seen by Provider: 02/20/24 11:59 History of Present Illness HPI narrative: Patient is a 68-year-old male history of alcoholism although he reports he has not had a drink in 5 weeks recent lumbar surgery for L4 burst fracture presents today with increasing falls and confusion. He had surgery 02/12/2024 he was discharged on February 13. reports that since then he has fallen a couple of times. He was into see his PCP today who thought he was far more confused than he should be in was concerned due to increasing falls. Patient denies any urinary incontinence. He says in fact he can now stand up to urinate. He is supposed to use a walker he has not always compliant. Again denies any sort of alcohol use is not sure but does not think so mostly because he has a difficult time getting around. She reports that 1 fall was due to tramadol and Tylenol p.m. and melatonin. Patient really has no complaints today he is having some postoperative pain in his lower back still. He is afebrile. Denies any abdominal pain nausea vomiting or fever. Related Data Home Medications Medication Instructions Recorded Confirmed amlodipine 2.5 mg tablet 2.5 mg PO BID 07/26/23 02/20/24 clopidogrel 75 mg tablet 75 mg PO DAILY 07/26/23 02/20/24 docusate sodium 100 mg capsule 100 mg PO BID PRN Constipation 07/26/23 02/20/24 (Stool Softener) lubiprostone 8 mcg capsule 8 mcg PO BID 07/26/23 02/20/24 (Amitiza) magnesium oxide 400 mg PO DAILY 07/26/23 02/20/24 metoprolol succinate 25 mg 25 mg PO DAILY 07/26/23 02/20/24 tablet,extended release 24 hr rosuvastatin 40 mg tablet 40 mg PO DAILY 07/26/23 02/20/24 venlafaxine 75 mg capsule,extended 75 mg PO DAILY 07/26/23 02/20/24 release 24 hr melatonin 12 mg tablet 12 mg PO DAILY 01/29/24 02/20/24 naltrexone 50 mg tablet 50 mg PO DAILY 02/10/24 02/20/24 Previous Rx's Medication Instructions Recorded albuterol sulfate 90 mcg/actuation 1 puff inhalation Q4H PRN 10/10/23 aerosol inhaler shortness of breath or wheezing #8.5 grams gabapentin 300 mg capsule 600 mg (2 x 300 mg) PO BID #360 10/25/23 caps ondansetron 4 mg disintegrating 4 mg PO Q6H PRN nausea and 12/29/23 tablet vomiting #20 tabs metoclopramide HCl 10 mg tablet 10 mg PO Q6H PRN nausea and 12/31/23 (Reglan) vomiting #10 tabs bupropion HCl 300 mg 24 hr tablet, 300 mg PO DAILY #90 tabs 01/04/24 extended release baclofen 5 mg tablet 5 mg PO TID PRN muscle spasm #40 01/23/24 tabs tramadol 50 mg tablet 50 mg PO Q8H PRN pain #30 tabs 01/31/24 acetaminophen 325 mg tablet 650 mg (2 x 325 mg) PO Q6H PRN 02/14/24 Fever/Mild Pain (1-3) #60 tabs oxycodone 5 mg tablet 5 mg PO Q3H PRN Pain, Moderate 02/14/24 (4-6) #40 tabs polyethylene glycol 3350 17 gram 17 gm PO DAILY PRN Constipation 02/14/24 oral powder packet #20 ea Allergies Allergy/AdvReac Type Severity Reaction Status Date / Time fentanyl AdvReac Severe Vomiting Verified 02/20/24 11:09 Patient History Medical History Head injury Alcohol use disorder Depression Alcoholism History of myocardial infarction (~2014) ETOH abuse Compression fracture of L4 vertebra 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 Chronic nausea Slow transit constipation Asthma, mild intermittent Mixed hyperlipidemia Essential hypertension Coronary artery disease Chronic constipation Surgical History History of total left hip replacement History of repair of hiatal hernia (~09/2022) Hx of heart artery stent Social History marital status: details: , 2 siblings, brother , 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 HEENT: Head atraumatic,EOMI, pupils reactive, face symmetric, moist mucous membranes CARDIOVASCULAR: Regular rate and rhythm without murmurs, rubs or gallops. RESPIRATORY: Breath sounds equal bilaterally, no wheezes rales or rhonchi. ABDOMEN: Soft, nontender. Normoactive bowel sounds all 4 quadrants. No guarding or rebound. BACK: Postoperative dressing placed no significant surrounding erythema EXTREMITIES: Normal range of motion, no clubbing or edema. Neurovascularly intact NEUROLOGICAL: Alert and oriented x4.Normal gait and speech. Cranial nerves II through XII grossly intact. Good lower extremity strength good [id number] bilaterally sensation intact bilaterally SKIN: Warm, dry, no laceration, no petechiae, no rashes or lesions. Course Orders Ordered: ED Orders 02/20/24 12:04 Acetaminophen Stat Complete Blood Count AUTO DIFF Stat Comprehensive Metabolic Panel Stat Ethanol (ETOH) Stat Lactate (Lactic Acid) Stat Lipase Stat Prothrombin Time INR Stat Salicylate Stat Troponin & CK Cardiac Panel Stat 02/20/24 12:09 CT cervical spine wo con Stat CT chest abd pel w con Stat 02/20/24 12:10 CT head/brain wo con Stat 02/20/24 13:37 Urine Drug Screen, Rapid Stat Vital Signs Vital signs: Vital Signs - 8 hr 02/20/24 11:55 02/20/24 11:58 02/20/24 12:00 Temperature 98.3 F Pulse Rate 66 66 Respiratory Rate 23 18 Blood Pressure 107/66 116/66 Pulse Oximetry 96 97 Oxygen Delivery Method Room Air 02/20/24 12:00 02/20/24 12:38 02/20/24 12:39 Temperature Pulse Rate 62 60 Respiratory Rate 24 Blood Pressure 137/67 Pulse Oximetry 95 Oxygen Delivery Method 02/20/24 12:39 02/20/24 13:00 02/20/24 13:04 Temperature Pulse Rate 60 59 L Respiratory Rate 14 13 Blood Pressure 138/68 Pulse Oximetry 96 97 Oxygen Delivery Method 02/20/24 13:04 02/20/24 13:30 02/20/24 14:00 Temperature Pulse Rate 60 60 Respiratory Rate 23 Blood Pressure 161/72 H Pulse Oximetry 97 Oxygen Delivery Method 02/20/24 14:00 02/20/24 14:30 Temperature 98.6 F Pulse Rate 62 65 Respiratory Rate Blood Pressure Pulse Oximetry Oxygen Delivery Method MDM - Altered Mental Status Lab Data 02/20/24 12:04 02/20/24 12:04 Labs: Lab Results 02/20/24 02/20/24 Range/Units 12:04 13:37 WBC 9.2 (4.5-11.0) X10^3/uL RBC 2.85 L (4.5-5.9) X10^6/uL Hgb 10.4 L (13.5-17.5) g/dL Hct 29.3 L (41-53) % MCV 102.9 H (80-100) fL MCH 36.3 H (26-34) PG MCHC 35.3 (30-36) % RDW 14.9 H (11.6-14.8) % Plt Count 327 (150-400) X10^3/uL Neut % (Auto) 73.7 (50-75) % Lymph % (Auto) 14.4 L (25-40) % [place] % (Auto) 10.1 (3-14) % Eos % (Auto) 0.9 L (2-4) % Baso % (Auto) 0.9 (0-2) % Neut # (Auto) 6700 (2657-8227) /uL Lymph # (Auto) 1300 (1186-5524) /uL [place] # (Auto) 900 (0-900) /uL Eos # (Auto) 100 (0-450) /uL Baso # (Auto) 100 (0-100) /uL PT 12.8 H (9.4-12.5) SECONDS INR 1.1 (0.9-1.3) Sodium 132 L (137-145) mmol/L Potassium 3.8 (3.4-5.1) mmol/L Chloride 100 (98-107) mmol/L Carbon Dioxide 23 (22-32) mmol/L BUN 10 (9-20) mg/dL Creatinine 0.89 (0.66-1.25) mg/dL Estimated GFR > 60 (>60) mL/min BUN/Creatinine Ratio 11.2 (6-22) Glucose 121 H (80-110) mg/dL Lactate 1.1 (0.7-2.1) mmol/L Calcium 9.0 (8.4-10.2) mg/dL Total Bilirubin 0.8 (0.2-1.3) mg/dL AST 41 (17-59) IU/L ALT 51 H (<50) IU/L Alkaline Phosphatase 95 (38-126) U/L Total Creatine Kinase 97 (55-170) U/L Troponin I < 0.012 (0.01-0.034) ng/mL Total Protein 6.7 (6.3-8.2) g/dL Albumin 3.8 (3.5-5.0) g/dL Globulin 2.9 (1.7-4.1) g/dL Albumin/Globulin Ratio 1.3 (1.0-2.8) Lipase 48 (23-300) U/L Salicylates < 1.0 (<20) mg/dL U Opiates 300ng/mL cut Negative (Negative) Ur Oxycodone Screen Positive H (Negative) Urine Methadone Screen Negative (Negative) Acetaminophen < 10 (10-30) ug/mL Ur Barbiturates Screen Negative (Negative) U Tricyclic Antidepress Negative (Negative) Ur Phencyclidine Scrn Negative (Negative) Ur Amphetamines Screen Negative (Negative) U Methamphetamines Scrn Negative (Negative) Ur MDMA Scrn (Ecstasy) Negative (Negative) U Benzodiazepines Scrn Negative (Negative) Urine Cocaine Screen Negative (Negative) U Marijuana (THC) Screen Negative (Negative) Urine pH Normal (Normal) Urine Specific [place] Normal (Normal) Ethyl Alcohol < 10 ( - 10) mg/dL Ur Creatinine Normal (Normal) Imaging Data CT scan - head: Radiologist's Impression: PROCEDURE: CT HEAD/BRAIN WO CON INDICATIONS: multiple falls TECHNIQUE: Noncontrast 4.5 mm thick angled axial sections acquired from the foramen magnum to the vertex, with coronal and sagittal reformats. For radiation dose reduction, the following was used: automated exposure control, adjustment of mA and/or kV according to patient size. COMPARISON: [facility], CT, CT HEAD/BRAIN WO CON, 01/24/2024, 8:51. [facility], CT, CT CHEST ABD PEL W CON, 02/20/2024, 12:29. [facility], CT, CT CERVICAL SPINE WO CON, 02/20/2024, 12:29. [facility], CT, CT HEAD/BRAIN WO CON, 02/09/2024, 21:28. FINDINGS: Image quality: This examination is limited by involuntary motion artifact. Mild streak artifact can be seen through the skull base. CSF spaces: Basal cisterns are patent. No extra-axial fluid collections. The ventricles are symmetric in size and shape. Brain: No intracranial bleeds or masses. There is cerebral volume loss for age, with resultant ventricular and sulcal prominence. There are periventricular and deep white matter chronic small vessel ischemic changes. There is intracranial internal carotid artery atherosclerosis. Skull and face: Calvarium and visualized facial bones appear intact, without suspicious lesions. Sinuses: Visualized sinuses and mastoids are clear. IMPRESSION: No acute intracranial hemorrhage is seen. No acute intracranial pathology. Dictated by: Chapito Dixon M.D. on 02/20/2024 at 12:34 CT - cervical spine: Radiologist's Impression: PROCEDURE: CT CERVICAL SPINE WO CON INDICATIONS: fall TECHNIQUE: Noncontrast 3 mm thick sections acquired from the skull base to the T4 level. Sagittal and coronal reformats were then constructed. For radiation dose reduction, the following was used: automated exposure control, adjustment of mA and/or kV according to patient size. COMPARISON: [facility], CT, CT CHEST ABD PEL W CON, 02/20/2024, 12:29. [facility], CT, CT HEAD/BRAIN WO CON, 02/20/2024, 12:29. FINDINGS: Image quality: Excellent. Bones: No fractures or dislocations. Visualized superior ribs are intact. Multiple levels of at least moderate cervical spine degenerative change can be seen. Several levels of significant facet arthropathy can be seen. Soft tissues: Prevertebral soft tissues are normal in thickness. No paravertebral hematomas. No apical pneumothoraces. Atherosclerotic calcification is noted. IMPRESSION: No displaced fracture or traumatic subluxation. Multiple levels of underlying degenerative change can be seen. Dictated by: Chapito Dixon M.D. on 02/20/2024 at 12:32 CT scan - abdomen/pelvis: Radiologist's Impression: PROCEDURE: CT CHEST ABD PEL W CON INDICATIONS: Multiple falls, post lumbar spine surgery TECHNIQUE: After the administration of intravenous contrast, 5 mm thick sections acquired from the lung apices to the symphysis. 2.5 mm thick coronal and sagittal reformats were acquired. Additional 7 mm thick coronal maximum intensity projection (MIP) reformats acquired through the lungs. Optional 10-minute delayed imaging may be performed from the kidneys to the bladder. For radiation dose reduction, the following was used: automated exposure control, adjustment of mA and/or kV according to patient size. COMPARISON: [facility], CT, CT ANGIO CHEST ABDOMEN PELVIS, 08/06/2022, 8:51. [facility], CT, CT ABDOMEN PELVIS W CON, 12/31/2023, 9:24. [facility], CT, CT HEAD/BRAIN WO CON, 02/20/2024, 12:29. [facility], CT, CT CERVICAL SPINE WO CON, 02/20/2024, 12:29. [facility], CR, XR LUMBAR SPINE 2-3V, 02/12/2024, 12:54. [facility], CT, CT LUMBAR SPINE WO CON, 02/07/2024, 15:50. FINDINGS: Image quality: This examination is limited by involuntary motion artifact. There is artifact associated with the metallic hardware. CHEST: Lower Neck: No enlarged lymph nodes. Thyroid: No thyroid nodules which require sonographic evaluation. Axillae: No enlarged lymph nodes. Chest Wall: No subcutaneous gas. Lungs and Pleura: No pulmonary contusions or lacerations. No acute airspace opacities. No pneumothorax or hemothorax. Mediastinum: No mediastinal hematomas. Heart size is normal. There is prominent coronary artery calcification. No pericardial effusion. Thoracic aorta and pulmonary arteries demonstrate normal size and enhancement. No mediastinal or hilar adenopathy. Esophagus is normal in caliber. No hiatal hernia. ABDOMEN: Liver: No lacerations. Gallbladder: No radiopaque gallstones or wall thickening. Biliary ducts: No biliary dilation. Pancreas: Homogenous enhancement. Spleen: Homogenous enhancement without laceration or hematoma. Adrenal Glands: Symmetric enhancement. Kidneys and Ureters: Symmetric enhancement. No hydronephrosis. No solid mass. No complex renal cystic lesion which requires follow up. Stomach and Bowel: Normal colonic caliber, without significant wall thickening. There is a moderate volume of stool seen within the colon. Peritoneum: No abnormal intraperitoneal fluid. No free air. Ventral Wall: No hernia. Abdominal Nodes: No retroperitoneal or mesenteric adenopathy by size criteria. Vessels: Aorta and inferior vena cava are normal in size. Atherosclerotic calcification is noted. PELVIS: Pelvic Organs: Unremarkable. Bladder: Normal thickness. Pelvic Nodes: No enlarged lymph nodes. Miscellaneous: No inguinal hernias are seen. Bones: Lumbar spine postoperative hardware is seen, which appears intact. Note is made that the L2 screw tips can be seen within the L2-L3 disc level. There is been removal of portions of the posterior elements at the L4 level. There is a significant stable L4 compression fracture. Pelvic ring and hip joints appear intact. No displaced rib fractures. Fusion of the sacroiliac joints can be seen. Left hip arthroplasty hardware is seen. IMPRESSION: No acute traumatic injury to the chest, abdomen or pelvis. Lumbosacral hardware, as described. Significant, stable L4 level compression deformity. There is a moderate amount of stool seen within the colon. Please correlate with an underlying history of constipation. Additional findings: Prominent coronary artery calcification Left hip arthroplasty hardware Dictated by: Chapito Dixon M.D. on 02/20/2024 at 12:35 MDM Narrative Medical decision making narrative: MDM CC: Altered mental status Complicating co-morbidities: Recent lumbar surgery for L4 burst fracture alcoholism hypertension hyperlipidemia Medical records reviewed: Multiple ED visits PCP visits recent hospitalization Differential considered: Intoxication delirium intracranial hemorrhage CVA Exam documented above, pertinent findings include: Patient is awake alert responsive appropriate slightly confused but no focal deficits on exam incision site is dressed with bandage Lab Test results independently reviewed as above. Pertinent findings: Drug screen positive for opiates alcohol negative salicylates and Tylenol negative CBC no leukocytosis or anemia WBC is 9.2 hemoglobin 10.4 hematocrit 29.3 platelets 327 CMP does not show any ARIC or significant electrolyte abnormality: Sodium 132 potassium 3.8 chloride 100 carbon dioxide 23 BUN 10 creatinine 0.8 glucose 121 lactate 1.1 bilirubin ALT 41 ALT 51 troponin negative Imaging studies independently reviewed: CT head neck and chest abdomen pelvis do not show any abnormality. No complication with recent surgery no intracranial hemorrhage no new fracture Consultations: [ ] Treatments: None Re-evaluations: [ ] Discussion: Patient presenting today with increasing falls and confusion after recent hospitalization and surgery. There initially was concern PCP for intoxication however none this time. It does not quite sound like he has taking a lot of medication says she is in charge of giving him oxycodone which she only does 1 or 2 times a day he was previously given baclofen which he also says he has not taking because it does not really work. He did take some Tylenol p.m. the night he fell along with melatonin which may have contributed to his fall. They are concerned that he is taking too much gabapentin I suggested that they may wean him off to see if he still needs it and also talk with primary look at medication. I suspect that he may still be having some postoperative in-hospital delirium. My do not suspect alcohol withdrawal at this time. No real cause for confusion. It he is only mildly confused he is able to participate in conversation and able to follow commands. He has a walker at home she agrees to use. I do not see reason for admission this time. Discharge Plan Departure Patient Disposition: Home Clinical Impression: Acute delirium Instructions: Delirium Activity Restrictions/Additional Instructions: *You have been diagnosed with delirium *What to do: At this time it is unclear what is causing confusion I do suspect that it may be drug in post surgery. I strongly recommend weaning off medication and not taking as many meds. However please be sure that pain is controlled *Continue to take medications as directed You could try changing gabapentin to 1 tablet twice a day instead of 2 tablets twice a day Decrease oxycodone as much as possible tried to only take it at night time or for severe pain Avoid Tylenol p.m. *Follow up with your primary care provider in 2-3 days or call [phone] *Return to ER if you should have increasing confusion falls weakness fever or any new, worsening or concerning symptoms Prescriptions: No Action albuterol sulfate 90 mcg/actuation HFA aerosol inhaler 1 puff inhalation Q4H PRN (Reason: shortness of breath or wheezing) Qty: 8.5 3RF gabapentin 300 mg capsule 600 mg PO BID Qty: 360 3RF ondansetron 4 mg tablet,disintegrating 4 mg PO Q6H PRN (Reason: nausea and vomiting) Qty: 20 3RF bupropion HCl 300 mg tablet extended release 24 hr 300 mg PO DAILY Qty: 90 3RF tramadol 50 mg tablet 50 mg PO Q8H PRN (Reason: pain) Qty: 30 0RF rosuvastatin 40 mg tablet 40 mg PO DAILY metoprolol succinate 25 mg tablet extended release 24 hr 25 mg PO DAILY clopidogrel 75 mg tablet 75 mg PO DAILY venlafaxine 75 mg capsule,extended release 24hr 75 mg PO DAILY amlodipine 2.5 mg tablet 2.5 mg PO BID lubiprostone [Amitiza] 8 mcg capsule 8 mcg PO BID magnesium oxide 400 mg magnesium tablet 400 mg PO DAILY docusate sodium [Stool Softener] 100 mg capsule 100 mg PO BID PRN (Reason: Constipation) melatonin 12 mg tablet 12 mg PO DAILY baclofen 5 mg tablet 5 mg PO TID PRN (Reason: muscle spasm) Qty: 40 1RF acetaminophen 325 mg Tablet 650 mg PO Q6H PRN (Reason: Fever/Mild Pain (1-3)) Qty: 60 0RF polyethylene glycol 3350 17 gram Powder In Packet 17 gm PO DAILY PRN (Reason: Constipation) Qty: 20 0RF oxycodone 5 mg Tablet 5 mg PO Q3H PRN (Reason: Pain, Moderate (4-6)) Qty: 40 0RF naltrexone 50 mg tablet 50 mg PO DAILY metoclopramide HCl [Reglan] 10 mg tablet 10 mg PO Q6H PRN (Reason: nausea and vomiting) Qty: 10 0RF Referrals: Francisco Jade MD [Primary Care Provider] - Keely Lin MD [Physician] - Stand Alone Forms: Patient Portal/API
--- NOTE | 2024-02-20 12:09 | DI.CT.S_ITS ---
PROCEDURE: CT CHEST ABD PEL W CON INDICATIONS: Multiple falls, post lumbar spine surgery TECHNIQUE: After the administration of intravenous contrast, 5 mm thick sections acquired from the lung apices to the symphysis. 2.5 mm thick coronal and sagittal reformats were acquired. Additional 7 mm thick coronal maximum intensity projection (MIP) reformats acquired through the lungs. Optional 10-minute delayed imaging may be performed from the kidneys to the bladder. For radiation dose reduction, the following was used: automated exposure control, adjustment of mA and/or kV according to patient size. COMPARISON: [facility], CT, CT ANGIO CHEST ABDOMEN PELVIS, 08/06/2022, 8:51. [facility], CT, CT ABDOMEN PELVIS W CON, 12/31/2023, 9:24. [facility], CT, CT HEAD/BRAIN WO CON, 02/20/2024, 12:29. [facility], CT, CT CERVICAL SPINE WO CON, 02/20/2024, 12:29. [facility], CR, XR LUMBAR SPINE 2-3V, 02/12/2024, 12:54. [facility], CT, CT LUMBAR SPINE WO CON, 02/07/2024, 15:50. FINDINGS: Image quality: This examination is limited by involuntary motion artifact. There is artifact associated with the metallic hardware. CHEST: Lower Neck: No enlarged lymph nodes. Thyroid: No thyroid nodules which require sonographic evaluation. Axillae: No enlarged lymph nodes. Chest Wall: No subcutaneous gas. Lungs and Pleura: No pulmonary contusions or lacerations. No acute airspace opacities. No pneumothorax or hemothorax. Mediastinum: No mediastinal hematomas. Heart size is normal. There is prominent coronary artery calcification. No pericardial effusion. Thoracic aorta and pulmonary arteries demonstrate normal size and enhancement. No mediastinal or hilar adenopathy. Esophagus is normal in caliber. No hiatal hernia. ABDOMEN: Liver: No lacerations. Gallbladder: No radiopaque gallstones or wall thickening. Biliary ducts: No biliary dilation. Pancreas: Homogenous enhancement. Spleen: Homogenous enhancement without laceration or hematoma. Adrenal Glands: Symmetric enhancement. Kidneys and Ureters: Symmetric enhancement. No hydronephrosis. No solid mass. No complex renal cystic lesion which requires follow up. Stomach and Bowel: Normal colonic caliber, without significant wall thickening. There is a moderate volume of stool seen within the colon. Peritoneum: No abnormal intraperitoneal fluid. No free air. Ventral Wall: No hernia. Abdominal Nodes: No retroperitoneal or mesenteric adenopathy by size criteria. Vessels: Aorta and inferior vena cava are normal in size. Atherosclerotic calcification is noted. PELVIS: Pelvic Organs: Unremarkable. Bladder: Normal thickness. Pelvic Nodes: No enlarged lymph nodes. Miscellaneous: No inguinal hernias are seen. Bones: Lumbar spine postoperative hardware is seen, which appears intact. Note is made that the L2 screw tips can be seen within the L2-L3 disc level. There is been removal of portions of the posterior elements at the L4 level. There is a significant stable L4 compression fracture. Pelvic ring and hip joints appear intact. No displaced rib fractures. Fusion of the sacroiliac joints can be seen. Left hip arthroplasty hardware is seen. IMPRESSION: No acute traumatic injury to the chest, abdomen or pelvis. Lumbosacral hardware, as described. Significant, stable L4 level compression deformity. There is a moderate amount of stool seen within the colon. Please correlate with an underlying history of constipation. Additional findings: Prominent coronary artery calcification Left hip arthroplasty hardware Dictated by: Chapito Dixon M.D. on 02/20/2024 at 12:35 Approved by: Chapito Dixon M.D. on 02/20/2024 at 12:40
--- NOTE | 2024-02-20 12:09 | DI.CT.S_ITS ---
PROCEDURE: CT CERVICAL SPINE WO CON INDICATIONS: fall TECHNIQUE: Noncontrast 3 mm thick sections acquired from the skull base to the T4 level. Sagittal and coronal reformats were then constructed. For radiation dose reduction, the following was used: automated exposure control, adjustment of mA and/or kV according to patient size. COMPARISON: [facility], CT, CT CHEST ABD PEL W CON, 02/20/2024, 12:29. [facility], CT, CT HEAD/BRAIN WO CON, 02/20/2024, 12:29. FINDINGS: Image quality: Excellent. Bones: No fractures or dislocations. Visualized superior ribs are intact. Multiple levels of at least moderate cervical spine degenerative change can be seen. Several levels of significant facet arthropathy can be seen. Soft tissues: Prevertebral soft tissues are normal in thickness. No paravertebral hematomas. No apical pneumothoraces. Atherosclerotic calcification is noted. IMPRESSION: No displaced fracture or traumatic subluxation. Multiple levels of underlying degenerative change can be seen. Dictated by: Chapito Dixon M.D. on 02/20/2024 at 12:32 Approved by: Chapito Dixon M.D. on 02/20/2024 at 12:33
--- NOTE | 2024-02-20 12:10 | DI.CT.S_ITS ---
PROCEDURE: CT HEAD/BRAIN WO CON INDICATIONS: multiple falls TECHNIQUE: Noncontrast 4.5 mm thick angled axial sections acquired from the foramen magnum to the vertex, with coronal and sagittal reformats. For radiation dose reduction, the following was used: automated exposure control, adjustment of mA and/or kV according to patient size. COMPARISON: [facility], CT, CT HEAD/BRAIN WO CON, 01/24/2024, 8:51. [facility], CT, CT CHEST ABD PEL W CON, 02/20/2024, 12:29. [facility], CT, CT CERVICAL SPINE WO CON, 02/20/2024, 12:29. [facility], CT, CT HEAD/BRAIN WO CON, 02/09/2024, 21:28. FINDINGS: Image quality: This examination is limited by involuntary motion artifact. Mild streak artifact can be seen through the skull base. CSF spaces: Basal cisterns are patent. No extra-axial fluid collections. The ventricles are symmetric in size and shape. Brain: No intracranial bleeds or masses. There is cerebral volume loss for age, with resultant ventricular and sulcal prominence. There are periventricular and deep white matter chronic small vessel ischemic changes. There is intracranial internal carotid artery atherosclerosis. Skull and face: Calvarium and visualized facial bones appear intact, without suspicious lesions. Sinuses: Visualized sinuses and mastoids are clear. IMPRESSION: No acute intracranial hemorrhage is seen. No acute intracranial pathology. Dictated by: Chapito Dixon M.D. on 02/20/2024 at 12:34 Approved by: Chapito Dixon M.D. on 02/20/2024 at 12:35
[2024-02-20 12:20] LABS: Add Manual Diff / Slide Review NO; Basophils Absolute Auto 100 /uL (0-100); Basophils Percent Auto 0.9 % (0-2); Eosinophils Absolute Auto 100 /uL (0-450); Eosinophils Percent Auto 0.9 % (2-4); Hematocrit 29.3 % (41-53); Hemoglobin 10.4 g/dL (13.5-17.5); Lymphocytes Absolute Auto 1300 /uL (1100-4500); Lymphocytes Percent Auto 14.4 % (25-40); Mean Corpuscular HGB Conc 35.3 % (30-36); Mean Corpuscular Hemoglobin 36.3 PG (26-34); Mean Corpuscular Volume 102.9 fL (80-100); Monocytes Absolute Auto 900 /uL (0-900); Monocytes Percent Auto 10.1 % (3-14); Neutrophils Absolute Auto 6700 /uL (1500-7000); Neutrophils Percent Auto 73.7 % (50-75); Platelet Count 327 X10^3/uL (150-400); Red Blood Cell Count 2.85 X10^6/uL (4.5-5.9); Red Cell Distribution Width 14.9 % (11.6-14.8); White Blood Cell Count 9.2 X10^3/uL (4.5-11.0)
--- NOTE | 2024-02-20 12:25 | PC.NURSE ---
Hx of alcohol abuse, pt disoriented to day. Pt reports multiple falls at home; attributing to feeling unbalanced. SO states he took tramadol, Benadryl, and melatonin. and wonders if that caused his fall.
--- NOTE | 2024-02-20 12:27 | PC.NURSE ---
pt c/o lower back pain. recent surgery?
[2024-02-20 12:31] LABS: INR 1.1 (0.9-1.3); Prothrombin Time 12.8 SECONDS (9.4-12.5)
[2024-02-20 12:36] LABS: Acetaminophen < 10 ug/mL (10-30); Alanine Aminotransferase 51 IU/L (<50); Albumin 3.8 g/dL (3.5-5.0); Albumin Globulin Ratio 1.3 (1.0-2.8); Alkaline Phosphatase 95 U/L (38-126); Aspartate Aminotransferase 41 IU/L (17-59); BUN Creatinine Ratio 11.2 (6-22); Bilirubin Total 0.8 mg/dL (0.2-1.3); Blood Urea Nitrogen 10 mg/dL (9-20); Carbon Dioxide 23 mmol/L (22-32); Chloride 100 mmol/L (98-107); Creatine Kinase 97 U/L (55-170); Estimated Glomerular Filt Rate > 60 mL/min (>60); Ethanol (ETOH) < 10 mg/dL; Globulin 2.9 g/dL (1.7-4.1); Glucose 121 mg/dL (80-110); HEMOLYSIS < 15 (0-50); Lipase 48 U/L (23-300); Potassium 3.8 mmol/L (3.4-5.1); Salicylate < 1.0 mg/dL (<20); Sodium 132 mmol/L (137-145); Total Protein 6.7 g/dL (6.3-8.2)
[2024-02-20 12:37] LABS: Lactate (Lactic Acid) 1.1 mmol/L (0.7-2.1)
[2024-02-20 12:48] LABS: Troponin I < 0.012 ng/mL (0.01-0.034)
[2024-02-20 13:57] LABS: Ur Creatinine Normal (Normal); Ur Specific Gravity Normal (Normal); Urine Oxycodone Positive (Negative); Urine Tetrahydrocannabinol Negative (Negative); Urine pH Normal (Normal)
[2024-02-20 13:58] LABS: UR Morphine/Opiate cutoff 300 Negative (Negative); Urine Amphetamines Negative (Negative); Urine Barbiturates Negative (Negative); Urine Benzodiazepines Negative (Negative); Urine Cocaine Negative (Negative); Urine MDMA Negative (Negative); Urine Methadone Negative (Negative); Urine Methamphetamines Negative (Negative); Urine Phencyclidine Negative (Negative); Urine Tricyclic Antidepressant Negative (Negative)
== END 2024-02-20 14:39 | disposition home or self-care (01) ==
PROVIDERS: Emergency Provider Emergency Medicine; PCP Internal Medicine
DX: R41.0 Disorientation, unspecified (principal); R29.6 Repeated falls; Z98.890 Other specified postprocedural states; M54.50 Low back pain, unspecified
CPT/HCPCS: 36415; 70450; 71260; 72125; 74177; 80053; 80305; 80320; 80329; 82550; 83605; 83690; 84484; 85025; 85610; 99283; 99284; G0480; Q9967

== ENCOUNTER → 2024-06-13 09:45 | Outpatient (CLI) | payer MEDICARE, OTHER, BC, SELFPAY ==
[2024-02-12 10:53] VITALS: BMI 24.3
--- NOTE | 2024-06-13 09:48 | DI.RAD.S_ITS ---
PROCEDURE: XR T AND L SPINE 2 TO 3 VIEWS INDICATIONS: Low back pain, unspecified TECHNIQUE: 2 views acquired of the thoracolumbar spine. COMPARISON: None. FINDINGS: Bones: There are postsurgical changes of spinal fusion from T12 through S1 with bilateral pedicular screws and paraspinal rods fixation. Pedicular screws noted bilaterally at T12, L1, L3, L5, and S1 with arthrodesis screws of the bilateral sacroiliac joints. No evidence for hardware complication. Age-indeterminate compression fracture of L4. Partially imaged hardware from left hip arthroplasty. Soft tissues: No suspicious soft tissue calcifications. IMPRESSION: Postsurgical changes of spinal fusion from T12 through S1 and arthrodesis of the bilateral sacroiliac joints without evidence for hardware complication. Age-indeterminate compression fracture of L4. Dictated by: Shoaib Natarajan M.D. on 06/14/2024 at 2:15 Approved by: Shoaib Natarajan M.D. on 06/14/2024 at 2:19
== END ==
PROVIDERS: PCP Internal Medicine; Referring Provider Neurological Surgery; Visit Provider Neurological Surgery
DX: M48.56XA Collapsed vertebra, not elsewhere classified, lumbar region, initial encounter for fracture (principal); M54.50 Low back pain, unspecified; Z98.1 Arthrodesis status
CPT/HCPCS: 72082

== ENCOUNTER → 2024-06-20 12:43 | Outpatient (CLI) | payer MEDICARE, BC, SELFPAY ==
[2024-02-12 10:53] VITALS: BMI 24.3
--- NOTE | 2024-06-20 12:59 | EKG_ITS ---
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
== END ==
PROVIDERS: PCP Internal Medicine; Referring Provider Orthopaedic Surgery; Visit Provider Orthopaedic Surgery
DX: Z01.818 Encounter for other preprocedural examination (principal)
CPT/HCPCS: 93005; 93010

== ENCOUNTER → 2024-12-26 14:02 | Outpatient (CLI) | payer MEDICARE, BC, SELFPAY ==
[2024-02-12 10:53] VITALS: BMI 24.3
[2024-12-26 14:30] LABS: Hematocrit 36.4 % (41-53); Hemoglobin 12.6 g/dL (13.5-17.5); Mean Corpuscular HGB Conc 34.5 % (30-36); Mean Corpuscular Hemoglobin 35.1 PG (26-34); Mean Corpuscular Volume 101.6 fL (80-100); Platelet Count 249 X10^3/uL (150-400); Red Blood Cell Count 3.59 X10^6/uL (4.5-5.9); Red Cell Distribution Width 15.5 % (11.6-14.8); White Blood Cell Count 4.8 X10^3/uL (4.5-11.0)
[2024-12-26 15:16] LABS: Alanine Aminotransferase 32 IU/L (<50); Albumin 4.7 g/dL (3.5-5.0); Albumin Globulin Ratio 1.8 (1.0-2.8); Alkaline Phosphatase 65 U/L (38-126); Aspartate Aminotransferase 42 IU/L (17-59); BUN Creatinine Ratio 7.1 (6-22); Bilirubin Total 0.5 mg/dL (0.2-1.3); Blood Urea Nitrogen 6 mg/dL (9-20); Calcium 9.6 mg/dL (8.4-10.2); Carbon Dioxide 25 mmol/L (22-32); Chloride 101 mmol/L (98-107); Cholesterol 147 mg/dL (140-199); Estimated Glomerular Filt Rate > 60 mL/min (>60); Globulin 2.6 g/dL (1.7-4.1); Glucose 92 mg/dL (70-99); HDL Cholesterol 45 mg/dL (40-60); HEMOLYSIS < 15 (0-50); LDL Cholesterol Calculated 49 mg/dL (<100); Potassium 4.8 mmol/L (3.4-5.1); Sodium 134 mmol/L (137-145); Total Protein 7.3 g/dL (6.3-8.2); Triglycerides 266 mg/dL (35-150)
[2024-12-26 15:48] LABS: Prostate Specific Antigen 0.476 ng/mL (0.10-4.00)
[2024-12-26 15:50] LABS: TSH w/ Reflex to FT4 1.02 uIU/mL (0.47-4.68)
[2024-12-26 16:09] LABS: Vitamin B12 224 pg/mL (239-931)
== END ==
PROVIDERS: PCP Internal Medicine; Referring Provider Internal Medicine; Visit Provider Internal Medicine
DX: N13.8 Other obstructive and reflux uropathy (principal); E78.2 Mixed hyperlipidemia; N40.1 Benign prostatic hyperplasia with lower urinary tract symptoms; I25.10 Atherosclerotic heart disease of native coronary artery without angina pectoris; E53.8 Deficiency of other specified B group vitamins
CPT/HCPCS: 36415; 80053; 80061; 82607; 84153; 84443; 85027

== ENCOUNTER → 2025-04-29 10:24 | Outpatient (CLI) | payer MEDICARE, OTHER, SELFPAY ==
[2024-02-12 10:53] VITALS: BMI 24.3
[2025-04-29 10:50] LABS: Hematocrit 36.9 % (41-53); Hemoglobin 13.1 g/dL (13.5-17.5); Mean Corpuscular HGB Conc 35.4 % (30-36); Mean Corpuscular Hemoglobin 38.0 PG (26-34); Mean Corpuscular Volume 107.5 fL (80-100); Platelet Count 226 X10^3/uL (150-400)
[2025-04-29 12:21] LABS: Alanine Aminotransferase 53 IU/L (<50); Alkaline Phosphatase 58 U/L (38-126); Blood Urea Nitrogen 9 mg/dL (9-20); Calcium 9.8 mg/dL (8.4-10.2); Carbon Dioxide 24 mmol/L (22-32); Estimated Glomerular Filt Rate > 60 mL/min (>60); Glucose 96 mg/dL (70-99); HEMOLYSIS 23 (0-50); Total Protein 7.2 g/dL (6.3-8.2)
[2025-04-29 12:47] LABS: TSH w/ Reflex to FT4 1.48 uIU/mL (0.47-4.68)
[2025-04-29 13:23] LABS: Albumin 4.6 g/dL (3.5-5.0); Albumin Globulin Ratio 1.8 (1.0-2.8); Chloride 98 mmol/L (98-107); Globulin 2.5 g/dL (1.7-4.1); Potassium 3.8 mmol/L (3.4-5.1); Sodium 134 mmol/L (137-145)
[2025-04-29 15:33] LABS: Vitamin B12 > 1000 pg/mL (239-931)
== END ==
PROVIDERS: PCP Internal Medicine; Referring Provider Internal Medicine; Visit Provider Internal Medicine
DX: D51.9 Vitamin B12 deficiency anemia, unspecified (principal); I10 Essential (primary) hypertension; I25.118 Atherosclerotic heart disease of native coronary artery with other forms of angina pectoris; R79.89 Other specified abnormal findings of blood chemistry
CPT/HCPCS: 36415; 80053; 82607; 84403; 84443; 85027